=== PATIENT | male | born 1935 | race Caucasian/White ===

== ENCOUNTER 2017-08-10 17:45 | Inpatient (IN) | payer OTHER ==
[~2017-08-10] VITALS: Ht 172.7 cm; Wt 75.2 kg
[2017-08-10 19:05] VITALS: BP 92/57; PULSE 75; TEMP 36.5; O2SAT 98; Ht 172.7 cm; Wt 75.2 kg
[2017-08-10] MEDS ORDERED: TAMS0.4C38 PO (19:54)
[2017-08-10] MEDS ORDERED: ASPI1TAB83 PO (19:54)
[2017-08-10] MEDS ORDERED: SIMV20TA2 PO (19:54)
[2017-08-10] MEDS ORDERED: OMEP20TA PO (19:54)
[2017-08-10] MEDS ORDERED: METO25TA3 PO (19:55)
[2017-08-10] MEDS ORDERED: PATIENT'S ALLERGY INFO NEEDS ENTERED SCH (20:00)
[2017-08-10] MEDS ORDERED: ONDANSETRON INJ 2 MG/ML 2 ML VIAL IV PRN (20:15)
[2017-08-10] MEDS ORDERED: ACETAMINOPHEN 325 MG TAB PO PRN (20:15)
[2017-08-10 20:37] LABS: HEMATOCRIT 28.9 % (42-52); HEMOGLOBIN 10.1 g/dL (14.0-18.0); MEAN CORPUSCULAR HEMOGLOBIN 29.4 pg (25-34); MEAN CORPUSCULAR HGB CONC 34.9 g/dl (32-36); PLATELET COUNT 235 K/uL (130-400); RED CELL DISTRIBUTION WIDTH CV 14.9 % (11.5-14.5); RED CELL DISTRIBUTION WIDTH SD 45.6 fL (36.4-46.3); WHITE BLOOD COUNT 1.91 K/uL (4.8-10.8)
[2017-08-10 20:56] LABS: ALBUMIN 2.2 gm/dl (3.4-5.0); CALCIUM 7.7 mg/dl (8.5-10.1); CREATININE 1.11 mg/dl (0.60-1.40); POTASSIUM 3.4 mmol/L (3.5-5.1)
[2017-08-10 21:04] LABS: PHOSPHORUS 2.7 mg/dl (2.5-4.9); TOTAL PROTEIN 5.8 gm/dl (6.4-8.2)
--- NOTE | 2017-08-10 21:10 | DIAGNOSTIC IMAGING REPORT ---
CHEST ONE VIEW PORTABLE CLINICAL HISTORY: Atypical chest pain COMPARISON STUDY: No previous studies for comparison. FINDINGS: The heart is at the upper limits of normal in size. There is no failure. Increased left basal markings while nonspecific are likely atelectatic. The upper lung zones are clear.[ No pleural effusions are visualized. There is a calcified granuloma at the left lung base. IMPRESSION: Nonspecific left basilar opacities, likely atelectatic, although an infectious/inflammatory process could appear similar. No evidence of failure. Electronically signed by: Gonzalez De Jesus M.D. 08/10/2017 9:08 PM Dictated Date/Time: 08/10/2017 9:07 PM
[2017-08-10] MEDS: NSS + 20MEQ KCL 1000ML 1,000 ML IV SCH (22:41)
[2017-08-10] MEDS: AMPICILLIN/SULBACTAM SOD INJ 3,000 MG in SODIUM CHLORIDE 0.9% 100ML 100 ML IV ONE ×2 (23:01→23:44)
[2017-08-10] MEDS ORDERED: COUGH DROP (SUGAR FREE) LOZ 24 LOZ/1 BOX LOZ PRN (23:30)
[2017-08-10 23:33] VITALS: BP 100/58; PULSE 68; TEMP 36.8; O2SAT 95
[2017-08-11] VITALS (8 sets, daily range): BP systolic 100–120; BP diastolic 51–71; PULSE 61–75; TEMP 36.7–36.9; O2SAT 94–97
[2017-08-11 00:58] LABS: BASO % 0.5 %; BASO ABS # 0.01 K/uL (0-0.2); EOS ABS # 0.02 K/uL (0-0.5); IG# 0.02 K/uL (0.00-0.02); LYMPH % 48.7 %; LYMPH ABS # 0.96 K/uL (1.2-3.4); MONO % 11.2 %; MONO ABS # 0.22 K/uL (0.11-0.59); NEUT % 37.6 %; NEUT ABS # 0.74 K/uL (1.4-6.5)
[2017-08-11] MEDS: AMPICILLIN/SULBACTAM SOD INJ 3,000 MG in SODIUM CHLORIDE 0.9% 100ML 100 ML IV SCH ×3 (05:50→19:18)
[2017-08-11 07:39] LABS: INR 1.2 (0.9-1.1)
[2017-08-11 07:45] LABS: HEMATOCRIT 28.5 % (42-52); HEMOGLOBIN 9.9 g/dL (14.0-18.0); MEAN CELL VOLUME 84.3 fL (80-100); MEAN CORPUSCULAR HEMOGLOBIN 29.3 pg (25-34); MEAN CORPUSCULAR HGB CONC 34.7 g/dl (32-36); MEAN PLATELET VOLUME 8.6 fL (7.4-10.4); PLATELET COUNT 234 K/uL (130-400); RED CELL DISTRIBUTION WIDTH CV 14.9 % (11.5-14.5); RED CELL DISTRIBUTION WIDTH SD 46.3 fL (36.4-46.3); WHITE BLOOD COUNT 2.17 K/uL (4.8-10.8)
[2017-08-11 07:51] LABS: CALCIUM 7.6 mg/dl (8.5-10.1); CREATININE 1.01 mg/dl (0.60-1.40); POTASSIUM 3.8 mmol/L (3.5-5.1)
[2017-08-11 07:54] LABS: BASO % 0.5 %; BASO ABS # 0.01 K/uL (0-0.2); EOS % 0.9 %; EOS ABS # 0.02 K/uL (0-0.5); IG# 0.02 K/uL (0.00-0.02); LYMPH % 42.4 %; LYMPH ABS # 0.92 K/uL (1.2-3.4); MONO % 13.4 %; MONO ABS # 0.29 K/uL (0.11-0.59); NEUT % 41.9 %; NEUT ABS # 0.91 K/uL (1.4-6.5)
[2017-08-11 07:56] LABS: TOTAL PROTEIN 5.3 gm/dl (6.4-8.2)
--- NOTE | 2017-08-11 08:01 | HISTORY & PHYSICAL EXAMINATION ---
DATE OF ADMISSION: 08/10/2017 PRIMARY CARE PHYSICIAN: Dr. Solitario. CHIEF COMPLAINT: The patient has symptoms of oropharyngeal disease with neutropenia and was transferred from [facility] for continued management. HISTORY OF PRESENT COMPLAINT: He is an 82-year-old male, significant past medical history of CAD, seems to be stable, benign prostatic hypertrophy with high PSA, hyperlipidemia, history of DVT and history of duodenal ulcer. Apparently, has been complaining of sore throat and feeling of fullness in the face and head area with ongoing constant runny nose and sneezing with occasional blood in the sneeze. He also complains to have sore throat but did not have any problem with swallowing. His appetite has been poor. He denies any fever, chills or rigors with it. He went to the [facility] and noted to have low white count of 1.2 or 3. From that point, he was advised to come to [facility] or to [place] for continuation of care and get a hematology evaluation for these. On asking question, he has above symptoms but denies any chest pain, palpitation, any shortness of breath. Does not have any abdominal pain, nausea or vomiting. Denies any problem with bowel but has been having urinary symptoms. No swelling of the legs. No problem in the joints. No rash anywhere in the body. No headache, blurred vision, numbness or tingling in the extremities or any photophobia. PAST MEDICAL HISTORY: Significant for CAD, seems to be stable, benign prostatic hypertrophy with high PSA, hyperlipidemia, history of deep venous thrombosis, gastroesophageal reflux disease and history of duodenal ulcer. PAST SURGICAL HISTORY: Cardiac cath in the past, cataract surgery and tonsillectomy as a child. FAMILY HISTORY: Sister has unknown arthritis. Brother has a growth in the brain and also heart disorder. Father did have heart disorder. Mother and father as well. SOCIAL HISTORY: He is . He has 1 child, lives with his . He quit smoking in 1959 and he has been chewing snuff. No alcohol. He is quite ambulant. ALLERGIES: NKDA. MEDICATIONS: As an outpatient, he has been on aspirin 81 mg daily, Flomax 0.4 mg daily, metoprolol succinate 25 mg 1 tablet daily, Prilosec 40 mg daily and naproxen as needed. REVIEW OF SYSTEMS: As in history of present complaint. PHYSICAL EXAMINATION: GENERAL: On examination in the medical floor, he was not in any acute distress but he was feeling anorexic and generally weak. VITAL SIGNS: Temperature 36.5, pulse of 75, blood pressure 192/57, saturation 98% on room air. HEENT: Unremarkable. There is some tenderness in maxillary sinus areas on both sides. Throat nontender. There is no enlargement of the tonsils. Some redness noted on inspection of the throat area. CHEST: Clear to auscultate bilaterally. HEART: S1, S2 regular, no murmur. ABDOMEN: Soft, benign, nontender, no organomegaly. Bowel sounds present. EXTREMITIES: Negative for any edema. MUSCULOSKELETAL: Did not show any acute arthritis involving any joint. CENTRAL NERVOUS SYSTEM: He was alert, awake, oriented x3. No focal sensory and/or motor deficit appreciated. No photophobia and no neck stiffness. LABORATORY DATA: Noted from [facility] that was done today, rapid strep negative, white count 1.8, hemoglobin 11.6, hematocrit 33.9, platelet was 306, absolute lymphocytes low, absolute neutrophils low at 0.90. INR was 1.44, PTT 25.5. BNP 73. Thyroxine was 9.6, TSH was 4.63. Sodium 141, potassium 3.6, chloride 107, anion gap was 14, urea nitrogen 40 and creatinine 1.4, glucose 115, calcium 8.7, total bilirubin 7.0, AST 20, ALT 20, albumin 2.6, magnesium 2.3. Troponin was 0.02. UA examination unremarkable except hyaline casts 1+ and granular casts 1+. EKG was in sinus rhythm, left axis deviation, rate of [address]-T wave changes. Do not see any results of the x-ray. IMPRESSION AND PLAN: 1. Runny nose, sneezing, throat pain and facial fullness, most likely secondary to maxillary sinusitis. The patient will be started on intravenous Augmentin. He has neutropenia. The condition could be viral as well with decreased appetite. We will put him on neutropenic precaution as well. 2. Neutropenia. White count of 1.8 with absolute neutrophil 0.9. He will be put on neutropenic precaution. Hematology consultation will be taken. We will repeat blood counts tomorrow morning and this evening as well. Again, Augmentin was started due to probable sinusitis but he may have viral pharyngitis as well. 3. Pharyngitis has been ongoing since Friday. Could be viral and that can cause neutropenia. Again, antibiotic was given for probable sinusitis on examination. 4. Coronary artery disease. No acute symptoms. Continue with metoprolol. 5. Benign prostatic hypertrophy with elevated PSA. Will check his PSA level while in the hospital. He has been under the care of urologist. He will have regular followup appointment as an outpatient. 6. History of duodenal ulcer and reflux disease. He has been on omeprazole, continue with that. No evidence of any acute GI bleeding at this time. 7. Code status: Discussed with the patient, he will be full code. 8. Deep venous thrombosis prophylaxis with subcutaneous heparin. In my clinical assessment, the beneficiary meets criteria as per CMS for 2-midnight stay in the hospital. YASIR
[2017-08-11] MEDS: PANTOprazole SOD 40 MG TAB PO SCH (08:43)
[2017-08-11] MEDS: ASPIRIN 81 MG ECTAB PO SCH (08:43)
[2017-08-11] MEDS: METOPROLOL SUCC 25MG EXT REL TAB PO SCH (08:44)
[2017-08-11] MEDS: TAMSULOSIN HCL 0.4 MG CAP PO SCH (08:44)
[2017-08-11] MEDS: SIMVASTATIN 20 MG TAB PO SCH (08:44)
[2017-08-11] MEDS: NSS + 20MEQ KCL 1000ML 1,000 ML IV SCH ×2 (08:45→19:18)
[2017-08-11] MEDS: HEPARIN SOD 5000 UNIT/0.5 ML CARP SQ SCH ×3 (08:51→19:19)
[2017-08-11 10:41] LABS: INFLUENZA A PCR Neg for Influ A (NEG); INFLUENZA B PCR Neg for Influ B (NEG)
--- NOTE | 2017-08-11 13:09 | Medical Consult ---
Consultation Date of Consultation: Aug 11, 2017. Attending Physician: Earl Alvarez M.D. Reason for Consultation: "Neutropenia" requested by Dr. Butler History of Present Illness Mr. Gray is an 82 yo CM new to the consulting Hematology service. He has a PMH positive for CAD, BPH, dyslipidemia, h/o DVT in [facility] in May 2015 after an injury to the leg. He became ill about 6 days ago with fatigue, malaise, anorexia, nasal congestion , sinus pressure, cough. When he did not improve by yesterday, his brought him to ER for evaluation at [facility]. He was noted to be neutropenic and so he was transferred to [facility] and admitted today. He has been started on empiric Augmentin IV for URI, sinusitis symptoms. Repeat blood cultures obtained and pending. Hematology has been consulted for neutropenia. Additional history obtained from the patient at bedside. He states he is feeling overall better. He thinks his cough is improving. He denies dyspnea, chest pain or peripheral edema. He has not been febrile. He thinks his energy is improving. He has not noted bowel or bladder bleeding. His appetite remains diminished. He states his bowels and bladder are regular. He denies adenopathy. Outside of illness, he has been overall well. Social History Smoking Status: Never Smoker Allergies Coded Allergies: No Known Allergies (Unverified , 08/10/17) Current Inpatient Medications Current Inpatient Medications Medications (Trade) Dose Ordered Sig/Freddie Route Start Time Stop Time Status Last Admin Dose Admin Aspirin (Ecotrin Tab) 81 mg DAILY PO 08/11/17 09:00 09/10/17 08:59 08/11/17 08:43 81 MG Metoprolol Succinate (Toprol Xl Tab) 25 mg DAILY PO 08/11/17 09:00 09/10/17 08:59 08/11/17 08:44 25 MG Simvastatin (Zocor Tab) 20 mg DAILY PO 08/11/17 09:00 09/10/17 08:59 08/11/17 08:44 20 MG Tamsulosin HCl (Flomax Cap) 0.4 mg DAILY PO 08/11/17 09:00 09/10/17 08:59 08/11/17 08:44 0.4 MG Pantoprazole Sodium (Protonix Tab) 40 mg QAM PO 08/11/17 09:00 09/10/17 08:59 08/11/17 08:43 40 MG Heparin Sodium (Porcine) (Heparin Sq 5000 Unit/0.5ml) 5,000 unit Q8 SQ 08/11/17 08:00 09/10/17 07:59 08/11/17 08:51 5,000 UNIT Potassium Chloride/Sodium Chloride 1,000 ml @ 100 mls/hr Q10H IV 08/10/17 21:30 09/09/17 21:29 08/11/17 08:45 100 MLS/HR Acetaminophen (Tylenol Tab) 650 mg Q4H PRN PO 08/10/17 20:15 09/09/17 20:14 Ondansetron HCl (Zofran Inj) 4 mg Q6H PRN IV 08/10/17 20:15 09/09/17 20:14 Ampicillin Sodium/ Sulbactam Sodium 3000 mg/Sodium Chloride 108 ml @ 200 mls/hr Q6H IV 08/11/17 06:00 08/21/17 05:59 08/11/17 12:05 200 MLS/HR Menthol (Nice Melanie) 1 melanie Q6H PRN MELANIE 08/10/17 23:30 09/09/17 23:29 Review of Systems Constitutional: + fatigue, No fever ENT: + nasal symptoms, + sore throat Respiratory: + cough, No shortness of breath Cardiovascular: No chest pain, No edema Abdomen: No vomiting, No diarrhea, No constipation, No GI bleeding Genitourinary - Male: No hematuria Physical Exam Date Time Temp Pulse Resp B/P (MAP) Pulse Ox O2 Delivery O2 Flow Rate FiO2 08/11/17 11:24 36.7 65 16 100/59 (73) 95 Room Air 08/11/17 10:41 36.8 75 16 94 08/11/17 08:00 94 Room Air 08/11/17 07:46 36.8 75 16 120/71 (87) 94 Room Air 08/11/17 04:02 Room Air 08/11/17 03:35 36.8 64 19 119/67 (84) 97 Room Air 08/11/17 00:01 Room Air 08/10/17 23:33 36.8 68 18 100/58 (72) 95 08/10/17 19:05 36.5 75 18 92/57 98 Room Air General Appearance: WD/WN, no apparent distress ENT: hearing grossly normal Neck: no adenopathy Respiratory/Chest: lungs clear, normal breath sounds Cardiovascular: regular rate, rhythm Abdomen/GI: non tender, soft Extremities/Musculoskelatal: no calf tenderness, no pedal edema Neurologic/Psych: alert, oriented x 3 Skin: warm/dry, no rash Laboratory Results Last 24 Hours Test 08/10/17 20:16 08/10/17 22:00 08/11/17 07:20 08/11/17 09:00 White Blood Count 1.91 K/uL 2.17 K/uL Red Blood Count 3.44 M/uL 3.38 M/uL Hemoglobin 10.1 g/dL 9.9 g/dL Hematocrit 28.9 % 28.5 % Mean Corpuscular Volume 84.0 fL 84.3 fL Mean Corpuscular Hemoglobin 29.4 pg 29.3 pg Mean Corpuscular Hemoglobin Concent 34.9 g/dl 34.7 g/dl Platelet Count 235 K/uL 234 K/uL Mean Platelet Volume 9.0 fL 8.6 fL Neutrophils (%) (Auto) 37.6 % 41.9 % Lymphocytes (%) (Auto) 48.7 % 42.4 % Monocytes (%) (Auto) 11.2 % 13.4 % Eosinophils (%) (Auto) 1.0 % 0.9 % Basophils (%) (Auto) 0.5 % 0.5 % Neutrophils # (Auto) 0.74 K/uL 0.91 K/uL Lymphocytes # (Auto) 0.96 K/uL 0.92 K/uL Monocytes # (Auto) 0.22 K/uL 0.29 K/uL Eosinophils # (Auto) 0.02 K/uL 0.02 K/uL Basophils # (Auto) 0.01 K/uL 0.01 K/uL RDW Standard Deviation 45.6 fL 46.3 fL RDW Coefficient of Variation 14.9 % 14.9 % Immature Granulocyte % (Auto) 1.0 % 0.9 % Immature Granulocyte # (Auto) 0.02 K/uL 0.02 K/uL Red Blood Cell Morphology Unremarkable Sodium Level 143 mmol/L 143 mmol/L Potassium Level 3.4 mmol/L 3.8 mmol/L Chloride Level 113 mmol/L 114 mmol/L Carbon Dioxide Level 19 mmol/L 21 mmol/L Anion Gap 11.0 mmol/L 8.0 mmol/L Blood Urea Nitrogen 36 mg/dl 32 mg/dl Creatinine 1.11 mg/dl 1.01 mg/dl Est Creatinine Clear Calc Drug Dose 51.3 ml/min 56.4 ml/min Estimated GFR () 72.3 81.0 Estimated GFR (Non- 62.4 69.9 BUN/Creatinine Ratio 32.0 31.3 Random Glucose 89 mg/dl 97 mg/dl Lactic Acid Level 0.7 mmol/L Calcium Level 7.7 mg/dl 7.6 mg/dl Phosphorus Level 2.7 mg/dl Magnesium Level 2.2 mg/dl Total Bilirubin 0.4 mg/dl 0.4 mg/dl Direct Bilirubin 0.2 mg/dl Aspartate Amino Transf (AST/SGOT) 15 U/L 13 U/L Alanine Aminotransferase (ALT/SGPT) 14 U/L 13 U/L Alkaline Phosphatase 60 U/L 55 U/L Troponin I 0.060 ng/ml 0.047 ng/ml Total Protein 5.8 gm/dl 5.3 gm/dl Albumin 2.2 gm/dl 2.0 gm/dl Procalcitonin 0.31 ng/ml Urine Color DK YELLOW Urine Appearance CLOUDY Urine pH 5.0 Urine Specific [place] 1.027 Urine Protein 1+ Urine Glucose (UA) NEG Urine Ketones NEG Urine Occult Blood NEG Urine Nitrite POS Urine Bilirubin NEG Urine Urobilinogen NEG Urine Leukocyte Esterase NEG Urine WBC (Auto) 1-5 /hpf Urine RBC (Auto) 0-4 /hpf Urine Hyaline Casts (Auto) 5-10 /lpf Urine Epithelial Cells (Auto) >30 /lpf Urine Bacteria (Auto) NEG Urine Renal Epithelial Cells 0-5 /lpf Urine Pathogenic Casts 0-3 GRANULAR CASTS /lpf Urine Mucus PRESENT Urine Yeast (Auto) Prothrombin Time 12.7 SECONDS Prothromb Time International Ratio 1.2 Globulin 3.3 gm/dl Albumin/Globulin Ratio 0.6 Influenza Type A (RT-PCR) Neg for Influ A Influenza Type B (RT-PCR) Neg for Influ B Assessment & Plan 1. Acute neutropenia in the setting of a viral illness 2. Normocytic anemia * Review of previous blood counts are limited, but counts Mar 2010, September 2011 and Jan 2016 did not reveal neutropenia or anemia * [facility] records reviewed * This appears to this point to be acute in nature * Neutropenia appears to be improving since admission * Patient has not been febrile * He is on empiric IV Augmentin * Continue to monitor CBCD during hospitalization daily * Anticipating marrow suppression from acute viral infection and for continued improvement in counts with time * If counts fail to improve/normalize, will need further work up, bone marrow biopsy * Patient should have follow up with Hematology on discharge Thanks for the consult. Dr. Sims is the attending [employer] Cutting [employer] Operator, aware and agreeable to plan as documented- please see his addendum. I performed history and physical examination of the patient. I have discussed the patient's case, impression and plan with Nani Fink PA-C. Her note reflects my findings and plan. In summary he is a 82-year-old male, who came with upper respiratory tract infection symptoms, mainly cough, not feeling quite well, blood workup on admission showed WBC 1.9, ANC 0.74, mild anemia with hemoglobin 10, normal platelet count, previous blood workup done few years back showed normal blood counts. He is gradually recovering from the symptoms, blood workup done within 24 hours showed improvement of the ANC 2 around 0.9. I am expecting improvement of his blood count in the next few days mainly white blood cell count and neutrophil count, hemoglobin level may take some time further improvement. If his blood workup improved, he will continue to have follow-up with his primary-care provider. Will follow-up. Dr. Remington Sims Hem/Onc
--- NOTE | 2017-08-11 20:47 | Progress Note ---
Internal Med Progress Note Date of Service: Aug 11, 2017. Provider Documentation: SUBJECTIVE: Patient reports cough and sore throat. OBJECTIVE: GENERAL: no distress, verbal HEENT: Throat nontender. There is no enlargement of the tonsils. CHEST: Clear to auscultate bilaterally. HEART: S1, S2 regular, no murmur. ABDOMEN: Soft, benign, nontender, no organomegaly. Bowel sounds present. EXTREMITIES: Negative for any edema. MUSCULOSKELETAL: Did not show any acute arthritis involving any joint. CENTRAL NERVOUS SYSTEM: alert, awake, oriented x3. No focal sensory and/or motor deficit appreciated ASSESSMENT & PLAN: This is a patient with symptoms of Runny nose, sneezing, sore throat, cough, and facial fullness, most likely secondary to maxillary sinusitis vs viral pharyngitis as well. Otherwise at this point, no other sources of infection -currently on Augmentin, continue Augmentin Neutropenia possibly from upper respiratory etiology -Continue to monitor CBC during hospitalization daily -Hematology consult: "Anticipating marrow suppression from acute viral infection and for continued improvement in counts with time If counts fail to improve/normalize, will need further work up, bone marrow biopsy. Patient should have follow up with Hematology on discharge" -on neutropenic precaution Coronary artery disease. No acute symptoms. Continue with metoprolol. Benign prostatic hypertrophy with elevated PSA. -Will check his PSA level while in the hospital. He has been under the care of urologist. He will have regular followup appointment as an outpatient. History of duodenal ulcer and reflux disease. -continue PPI Code status: full code. Deep venous thrombosis prophylaxis with subcutaneous heparin Disposition: transferred from telemetry to medical dunn Vital Signs: Date Time Temp Pulse Resp B/P (MAP) Pulse Ox O2 Delivery O2 Flow Rate FiO2 08/11/17 16:22 96 Room Air 08/11/17 14:47 36.9 61 20 116/66 (83) 96 Room Air 08/11/17 11:24 36.7 65 16 100/59 (73) 95 Room Air 08/11/17 10:41 36.8 75 16 94 08/11/17 08:00 94 Room Air 08/11/17 07:46 36.8 75 16 120/71 (87) 94 Room Air 08/11/17 04:02 Room Air 08/11/17 03:35 36.8 64 19 119/67 (84) 97 Room Air 08/11/17 00:01 Room Air 08/10/17 23:33 36.8 68 18 100/58 (72) 95 Lab Results: Results Past 24 Hours Test 08/10/17 22:00 08/11/17 07:20 08/11/17 09:00 Range/Units Urine Color DK YELLOW Urine Appearance CLOUDY CLEAR Urine pH 5.0 4.5-7.5 Urine Specific [place] 1.027 1.000-1.030 Urine Protein 1+ NEG Urine Glucose (UA) NEG NEG Urine Ketones NEG NEG Urine Occult Blood NEG NEG Urine Nitrite POS NEG Urine Bilirubin NEG NEG Urine Urobilinogen NEG NEG Urine Leukocyte Esterase NEG NEG Urine WBC (Auto) 1-5 0-5 /hpf Urine RBC (Auto) 0-4 0-4 /hpf Urine Hyaline Casts (Auto) 5-10 0-5 /lpf Urine Epithelial Cells (Auto) >30 0-5 /lpf Urine Bacteria (Auto) NEG NEG Urine Renal Epithelial Cells 0-5 0-5 /lpf Urine Pathogenic Casts 0-3 GRANULAR CASTS 0 /lpf Urine Mucus PRESENT NONE PRSENT Urine Yeast (Auto) NONE PRSENT White Blood Count 2.17 4.8-10.8 K/uL Red Blood Count 3.38 4.7-6.1 M/uL Hemoglobin 9.9 14.0-18.0 g/dL Hematocrit 28.5 42-52 % Mean Corpuscular Volume 84.3 80-100 fL Mean Corpuscular Hemoglobin 29.3 25-34 pg Mean Corpuscular Hemoglobin Concent 34.7 32-36 g/dl Platelet Count 234 130-400 K/uL Mean Platelet Volume 8.6 7.4-10.4 fL Neutrophils (%) (Auto) 41.9 % Lymphocytes (%) (Auto) 42.4 % Monocytes (%) (Auto) 13.4 % Eosinophils (%) (Auto) 0.9 % Basophils (%) (Auto) 0.5 % Neutrophils # (Auto) 0.91 1.4-6.5 K/uL Lymphocytes # (Auto) 0.92 1.2-3.4 K/uL Monocytes # (Auto) 0.29 0.11-0.59 K/uL Eosinophils # (Auto) 0.02 0-0.5 K/uL Basophils # (Auto) 0.01 0-0.2 K/uL RDW Standard Deviation 46.3 36.4-46.3 fL RDW Coefficient of Variation 14.9 11.5-14.5 % Immature Granulocyte % (Auto) 0.9 % Immature Granulocyte # (Auto) 0.02 0.00-0.02 K/uL Prothrombin Time 12.7 9.0-12.0 SECONDS Prothromb Time International Ratio 1.2 0.9-1.1 Sodium Level 143 136-145 mmol/L Potassium Level 3.8 3.5-5.1 mmol/L Chloride Level 114 98-107 mmol/L Carbon Dioxide Level 21 21-32 mmol/L Anion Gap 8.0 3-11 mmol/L Blood Urea Nitrogen 32 7-18 mg/dl Creatinine 1.01 0.60-1.40 mg/dl Est Creatinine Clear Calc Drug Dose 56.4 ml/min Estimated GFR () 81.0 Estimated GFR (Non- 69.9 BUN/Creatinine Ratio 31.3 10-20 Random Glucose 97 70-99 mg/dl Calcium Level 7.6 8.5-10.1 mg/dl Total Bilirubin 0.4 0.2-1 mg/dl Aspartate Amino Transf (AST/SGOT) 13 15-37 U/L Alanine Aminotransferase (ALT/SGPT) 13 12-78 U/L Alkaline Phosphatase 55 45-117 U/L Troponin I 0.047 0-0.045 ng/ml Total Protein 5.3 6.4-8.2 gm/dl Albumin 2.0 3.4-5.0 gm/dl Globulin 3.3 2.5-4.0 gm/dl Albumin/Globulin Ratio 0.6 0.9-2 Influenza Type A (RT-PCR) Neg for Influ A NEG Influenza Type B (RT-PCR) Neg for Influ B NEG Microbiology Results 08/11/17 MRSA DNA Surveillance Screen - Final, Complete Specimen Negative for MRSA by DNA Probe 08/10/17 Urine Culture, Received Pending
[2017-08-12] VITALS (7 sets, daily range): BP systolic 110–128; BP diastolic 60–68; PULSE 56–76; TEMP 36.5–36.7; O2SAT 96–97
[2017-08-12] MEDS: AMPICILLIN/SULBACTAM SOD INJ 3,000 MG in SODIUM CHLORIDE 0.9% 100ML 100 ML IV SCH ×3 (00:01→11:42)
[2017-08-12] MEDS: HEPARIN SOD 5000 UNIT/0.5 ML CARP SQ SCH ×3 (06:38→20:25)
[2017-08-12 07:06] LABS: BASO ABS # 0.03 K/uL (0-0.2); EOS ABS # 0.06 K/uL (0-0.5); HEMATOCRIT 28.6 % (42-52); HEMOGLOBIN 9.9 g/dL (14.0-18.0); IG# 0.03 K/uL (0.00-0.02); LYMPH % 48.5 %; LYMPH ABS # 1.46 K/uL (1.2-3.4); MEAN CELL VOLUME 85.1 fL (80-100); MEAN CORPUSCULAR HEMOGLOBIN 29.5 pg (25-34); MEAN CORPUSCULAR HGB CONC 34.6 g/dl (32-36); MEAN PLATELET VOLUME 8.8 fL (7.4-10.4); MONO % 13.6 %; MONO ABS # 0.41 K/uL (0.11-0.59); NEUT % 33.9 %; NEUT ABS # 1.02 K/uL (1.4-6.5); PLATELET COUNT 276 K/uL (130-400); RED CELL DISTRIBUTION WIDTH CV 15.1 % (11.5-14.5); RED CELL DISTRIBUTION WIDTH SD 46.9 fL (36.4-46.3); WHITE BLOOD COUNT 3.01 K/uL (4.8-10.8)
[2017-08-12 07:38] LABS: CALCIUM 7.8 mg/dl (8.5-10.1); CREATININE 0.92 mg/dl (0.60-1.40); POTASSIUM 3.6 mmol/L (3.5-5.1)
[2017-08-12 07:43] LABS: TOTAL PROTEIN 5.4 gm/dl (6.4-8.2)
[2017-08-12] MEDS: ASPIRIN 81 MG ECTAB PO SCH (08:25)
[2017-08-12] MEDS: TAMSULOSIN HCL 0.4 MG CAP PO SCH (08:25)
[2017-08-12] MEDS: SIMVASTATIN 20 MG TAB PO SCH (08:26)
[2017-08-12] MEDS: PANTOprazole SOD 40 MG TAB PO SCH (08:26)
[2017-08-12] MEDS: METOPROLOL SUCC 25MG EXT REL TAB PO SCH (08:26)
[2017-08-12] MEDS ORDERED: SODIUM CHLORIDE 0.65% NA SOLN 45 ML (OCEAN) ONE (09:51)
[2017-08-12] MEDS ORDERED: SODIUM CHLORIDE 0.65% NA SOLN 45 ML (OCEAN) PRN (10:15)
[2017-08-12] MEDS ORDERED: NURSING VERBAL MED ORDER ONE (10:15)
--- NOTE | 2017-08-12 13:34 | Progress Note ---
Medicine Progress Note Date & Time of Visit: Aug 12, 2017 at 13:34 . Subjective Having loose stools. Otherwise, feels better. No fever. No sinus pain / drainage. No pharyngitis. No chest pain, cough, SOB. No nausea, vomiting. . Objective Last 8 Hrs Date Time Temp Pulse Resp B/P (MAP) Pulse Ox O2 Delivery O2 Flow Rate FiO2 08/12/17 08:26 76 08/12/17 08:00 97 Room Air 08/12/17 07:42 36.5 56 18 110/60 (77) 97 Room Air Physical Exam: General- lying in bed; no distress ENT- oropharynx clear Lungs- clear to auscultation; no respiratory distress Cardiovascular- RRR; no gallop; no JVD; no pretibial edema Abdomen- + bowel sounds, soft, nontender Extremities- no cyanosis; no calf tenderness Neuro- alert, oriented Skin- warm & dry . Laboratory Results: Last 24 Hours Test 08/12/17 06:24 White Blood Count 3.01 K/uL Red Blood Count 3.36 M/uL Hemoglobin 9.9 g/dL Hematocrit 28.6 % Mean Corpuscular Volume 85.1 fL Mean Corpuscular Hemoglobin 29.5 pg Mean Corpuscular Hemoglobin Concent 34.6 g/dl Platelet Count 276 K/uL Mean Platelet Volume 8.8 fL Neutrophils (%) (Auto) 33.9 % Lymphocytes (%) (Auto) 48.5 % Monocytes (%) (Auto) 13.6 % Eosinophils (%) (Auto) 2.0 % Basophils (%) (Auto) 1.0 % Neutrophils # (Auto) 1.02 K/uL Lymphocytes # (Auto) 1.46 K/uL Monocytes # (Auto) 0.41 K/uL Eosinophils # (Auto) 0.06 K/uL Basophils # (Auto) 0.03 K/uL RDW Standard Deviation 46.9 fL RDW Coefficient of Variation 15.1 % Immature Granulocyte % (Auto) 1.0 % Immature Granulocyte # (Auto) 0.03 K/uL Sodium Level 143 mmol/L Potassium Level 3.6 mmol/L Chloride Level 115 mmol/L Carbon Dioxide Level 22 mmol/L Anion Gap 6.0 mmol/L Blood Urea Nitrogen 22 mg/dl Creatinine 0.92 mg/dl Est Creatinine Clear Calc Drug Dose 61.9 ml/min Estimated GFR () 90.7 Estimated GFR (Non- 78.3 BUN/Creatinine Ratio 24.5 Random Glucose 90 mg/dl Calcium Level 7.8 mg/dl Total Bilirubin 0.3 mg/dl Aspartate Amino Transf (AST/SGOT) 14 U/L Alanine Aminotransferase (ALT/SGPT) 12 U/L Alkaline Phosphatase 52 U/L Total Protein 5.4 gm/dl Albumin 2.0 gm/dl Globulin 3.4 gm/dl Albumin/Globulin Ratio 0.6 Prostate Specific Antigen 48.900 ng/ml Assessment & Plan NEUTROPENIA Resolving. Viral syndrome suspected. Influenza A/B PCR negative. ? SINUSITIS Check x-rays. DIARRHEA Stop antibiotics if possible. Check stool for C diff. ELEVATED PSA Bone scan ordered. Has outpatient appt with Urology next week. CAD No anginal symptoms. VTE PROPHYLAXIS SQ heparin. Ambulate. DISPOSITION Expected discharge to home. Family Medicine follow-up with Dr. Solitario. . Current Inpatient Medications: Current Inpatient Medications Medications (Trade) Dose Ordered Sig/Freddie Route Start Time Stop Time Status Last Admin Dose Admin Aspirin (Ecotrin Tab) 81 mg DAILY PO 08/11/17 09:00 09/10/17 08:59 08/12/17 08:25 81 MG Metoprolol Succinate (Toprol Xl Tab) 25 mg DAILY PO 08/11/17 09:00 09/10/17 08:59 08/12/17 08:26 25 MG Simvastatin (Zocor Tab) 20 mg DAILY PO 08/11/17 09:00 09/10/17 08:59 08/12/17 08:26 20 MG Tamsulosin HCl (Flomax Cap) 0.4 mg DAILY PO 08/11/17 09:00 09/10/17 08:59 08/12/17 08:25 0.4 MG Pantoprazole Sodium (Protonix Tab) 40 mg QAM PO 08/11/17 09:00 09/10/17 08:59 08/12/17 08:26 40 MG Heparin Sodium (Porcine) (Heparin Sq 5000 Unit/0.5ml) 5,000 unit Q8 SQ 08/11/17 08:00 09/10/17 07:59 08/12/17 06:38 5,000 UNIT Acetaminophen (Tylenol Tab) 650 mg Q4H PRN PO 08/10/17 20:15 09/09/17 20:14 Ondansetron HCl (Zofran Inj) 4 mg Q6H PRN IV 08/10/17 20:15 09/09/17 20:14 Ampicillin Sodium/ Sulbactam Sodium 3000 mg/Sodium Chloride 108 ml @ 200 mls/hr Q6H IV 08/11/17 06:00 08/21/17 05:59 08/12/17 11:42 200 MLS/HR Menthol (Nice Destiny) 1 destiny Q6H PRN DESTINY 08/10/17 23:30 09/09/17 23:29 Sodium Chloride ([place] Nasal [place]) 1 sprays PRN PRN NA 08/12/17 10:15 09/11/17 10:14
--- NOTE | 2017-08-12 15:49 | DIAGNOSTIC IMAGING REPORT ---
SINUSES MIN 3 VIEWS ROUTINE CLINICAL HISTORY: 82 years-old Male presenting with sinus congestion, r/o sinusitis. TECHNIQUE: 4 views of the sinuses were obtained. COMPARISON: None. FINDINGS: Paranasal sinuses and mastoid air cells grossly clear. Bony nasal septum minimally deviated to the right inferiorly. Bony orbits intact. Visualized portion of the calvarium intact. The patient is edentulous. IMPRESSION: No radiographic evidence of paranasal sinus opacification. Electronically signed by: Branden Bangura M.D. 08/12/2017 3:48 PM Dictated Date/Time: 08/12/2017 3:47 PM
--- NOTE | 2017-08-12 16:42 | Hematology/Oncology Prog Note ---
Hematology/Onc Progress Note Date of Service Aug 12, 2017. Subjective He reports his cough is improving. He is now eating meals. He has h/o enlarged prostate, but no prostate cancer. he denies any urinary issues currently. He denies focal bone pain. Review of Systems: Constitutional: No fever Respiratory: + cough, No shortness of breath Musculoskeletal: No joint pain, No muscle pain Vital Signs Vital Signs Past 12 Hours Date Time Temp Pulse Resp B/P (MAP) Pulse Ox O2 Delivery O2 Flow Rate FiO2 08/12/17 15:49 36.7 57 18 124/68 (86) 96 Room Air 08/12/17 08:26 76 08/12/17 08:00 97 Room Air 08/12/17 07:42 36.5 56 18 110/60 (77) 97 Room Air Physical Exam Head: normocephalic ENMT: hearing grossly normal Lungs: Respiratory Effort: no dyspnea Auscuitation: breath sounds normal Cardiovascular: Heart Auscultation: RRR Abdomen: Bowel Sounds: normal Musculoskeletal: pertinent finding (no spinous proceed tenderness) Laboratory 08/12/17 06:24 Red Blood Count 3.36, Mean Corpuscular Volume 85.1, Mean Corpuscular Hemoglobin 29.5, Mean Corpuscular Hemoglobin Concent 34.6, Mean Platelet Volume 8.8, Neutrophils (%) (Auto) 33.9, Lymphocytes (%) (Auto) 48.5, Monocytes (%) (Auto) 13.6, Eosinophils (%) (Auto) 2.0, Basophils (%) (Auto) 1.0, Neutrophils # (Auto ) 1.02, Lymphocytes # (Auto) 1.46, Monocytes # (Auto) 0.41, Eosinophils # (Auto ) 0.06, Basophils # (Auto) 0.03 08/12/17 06:24 Test 08/12/17 06:24 White Blood Count 3.01 K/uL (4.8-10.8) Red Blood Count 3.36 M/uL (4.7-6.1) Hemoglobin 9.9 g/dL (14.0-18.0) Hematocrit 28.6 % (42-52) Mean Corpuscular Volume 85.1 fL (80-100) Mean Corpuscular Hemoglobin 29.5 pg (25-34) Mean Corpuscular Hemoglobin Concent 34.6 g/dl (32-36) Platelet Count 276 K/uL (130-400) Mean Platelet Volume 8.8 fL (7.4-10.4) Neutrophils (%) (Auto) 33.9 % Lymphocytes (%) (Auto) 48.5 % Monocytes (%) (Auto) 13.6 % Eosinophils (%) (Auto) 2.0 % Basophils (%) (Auto) 1.0 % Neutrophils # (Auto) 1.02 K/uL (1.4-6.5) Lymphocytes # (Auto) 1.46 K/uL (1.2-3.4) Monocytes # (Auto) 0.41 K/uL (0.11-0.59) Eosinophils # (Auto) 0.06 K/uL (0-0.5) Basophils # (Auto) 0.03 K/uL (0-0.2) RDW Standard Deviation 46.9 fL (36.4-46.3) RDW Coefficient of Variation 15.1 % (11.5-14.5) Immature Granulocyte % (Auto) 1.0 % Immature Granulocyte # (Auto) 0.03 K/uL (0.00-0.02) Anion Gap 6.0 mmol/L (3-11) Est Creatinine Clear Calc Drug Dose 61.9 ml/min Estimated GFR () 90.7 Estimated GFR (Non- 78.3 BUN/Creatinine Ratio 24.5 (10-20) Calcium Level 7.8 mg/dl (8.5-10.1) Total Bilirubin 0.3 mg/dl (0.2-1) Aspartate Amino Transf (AST/SGOT) 14 U/L (15-37) Alanine Aminotransferase (ALT/SGPT) 12 U/L (12-78) Alkaline Phosphatase 52 U/L (45-117) Total Protein 5.4 gm/dl (6.4-8.2) Albumin 2.0 gm/dl (3.4-5.0) Globulin 3.4 gm/dl (2.5-4.0) Albumin/Globulin Ratio 0.6 (0.9-2) Prostate Specific Antigen 48.900 ng/ml (0.000-4.000) Assessment & Plan 1. Acute neutropenia in the setting of a viral illness 2. Normocytic anemia 3. Elevated PSA * ANC/WBC continue to improve as patient's viral illness is resolving * Anemia is stable, anticipate this will be longer for noticeable improvement * PSA came back significantly elevated- patient states his last PSA was 6 months ago and was around 4 ng/mL, has BPH and follows with Urology * Dr. Sims recommended bone scan for further evaluation prior to discharge * Patient should have follow up with Hematology on discharge, no contraindication for discharge from Hematology point of view at this time * * I have discussed the patient's case, impression and plan with Nani Fink PA-C. Her note reflects my findings and plan. I reviewed his blood workup done today, gradual improvement of white blood cell count and neutrophil count noted , clinically he is doing well, significantly elevated PSA level noted around 48. He should be evaluated by urologist, have biopsy of the prostate, will get bone scan for further evaluation. Will follow up as an outpatient. * * Dr. Remington Sims Hem/Onc
[2017-08-13] VITALS: O2SAT 97
[2017-08-13 06:04] LABS: BASO % 1.2 %; BASO ABS # 0.05 K/uL (0-0.2); EOS % 1.9 %; EOS ABS # 0.08 K/uL (0-0.5); HEMATOCRIT 31.2 % (42-52); HEMOGLOBIN 10.4 g/dL (14.0-18.0); IG# 0.19 K/uL (0.00-0.02); LYMPH % 41.2 %; LYMPH ABS # 1.72 K/uL (1.2-3.4); MEAN CELL VOLUME 85.7 fL (80-100); MEAN CORPUSCULAR HEMOGLOBIN 28.6 pg (25-34); MEAN CORPUSCULAR HGB CONC 33.3 g/dl (32-36); MEAN PLATELET VOLUME 8.7 fL (7.4-10.4); MONO % 14.9 %; MONO ABS # 0.62 K/uL (0.11-0.59); NEUT % 36.2 %; NEUT ABS # 1.51 K/uL (1.4-6.5); PLATELET COUNT 295 K/uL (130-400); RED CELL DISTRIBUTION WIDTH CV 14.7 % (11.5-14.5); RED CELL DISTRIBUTION WIDTH SD 46.5 fL (36.4-46.3); WHITE BLOOD COUNT 4.17 K/uL (4.8-10.8)
[2017-08-13] MEDS: HEPARIN SOD 5000 UNIT/0.5 ML CARP SQ SCH ×2 (06:35→13:55)
[2017-08-13 06:45] LABS: CALCIUM 7.9 mg/dl (8.5-10.1); CREATININE 0.83 mg/dl (0.60-1.40); POTASSIUM 3.6 mmol/L (3.5-5.1)
[2017-08-13 07:29] VITALS: BP 161/76; PULSE 59; TEMP 36.8; O2SAT 98
[2017-08-13 08:00] VITALS: O2SAT 98
[2017-08-13] MEDS: METOPROLOL SUCC 25MG EXT REL TAB PO SCH (08:00)
[2017-08-13 08:55] VITALS: PULSE 55
[2017-08-13] MEDS: SIMVASTATIN 20 MG TAB PO SCH (08:56)
[2017-08-13] MEDS: ASPIRIN 81 MG ECTAB PO SCH (08:56)
[2017-08-13] MEDS: TAMSULOSIN HCL 0.4 MG CAP PO SCH (08:56)
[2017-08-13] MEDS: PANTOprazole SOD 40 MG TAB PO SCH (08:57)
--- NOTE | 2017-08-13 13:51 | DIAGNOSTIC IMAGING REPORT ---
WHOLE-BODY NUCLEAR BONE SCAN CLINICAL HISTORY: Elevated PSA. COMPARISON STUDY: No priors.. TECHNIQUE: Three hours following the IV administration of 25.9 mCi of technetium 99m MDP, whole body nuclear bone scan was performed in the anterior and posterior projections. FINDINGS: There is no abnormal osseous tracer deposition identified typical in appearance for bony metastatic disease. Low level and typically degenerative uptake is identified in the shoulders, hips, knees, and feet. There is expected excreted activity within the renal collecting system and bladder. IMPRESSION: There is no scintigraphic evidence of osseous metastatic disease. Electronically signed by: Les Vasquez M.D. 08/13/2017 1:50 PM Dictated Date/Time: 08/13/2017 1:49 PM
[2017-08-13 16:04] VITALS: BP 161/74; PULSE 61; TEMP 36.8; O2SAT 95
[2017-08-13 17:25] VITALS: BP 161/74; PULSE 61; TEMP 36.8; O2SAT 95
--- NOTE | 2017-08-13 17:45 | Progress Note ---
Medicine Progress Note Date & Time of Visit: Aug 13, 2017 at 17:45 . Subjective Feels well. No fever or chills. Mild sinus drainage without sinus headache. No cough or shortness of breath. No chest pain. No nausea or vomiting. Diarrhea improved. . Objective Last 8 Hrs Date Time Temp Pulse Resp B/P (MAP) Pulse Ox O2 Delivery O2 Flow Rate FiO2 08/13/17 17:25 36.8 61 18 95 Room Air 08/13/17 16:04 36.8 61 18 161/74 (103) 95 Room Air Physical Exam: General- no distress Lungs- clear to auscultation; no respiratory distress Cardiovascular- RRR; no gallop; no JVD; no pretibial edema Abdomen- + bowel sounds, soft, nontender Extremities- no cyanosis; no calf tenderness Neuro- alert, oriented Skin- warm & dry . Laboratory Results: Last 24 Hours Test 08/13/17 05:56 White Blood Count 4.17 K/uL Red Blood Count 3.64 M/uL Hemoglobin 10.4 g/dL Hematocrit 31.2 % Mean Corpuscular Volume 85.7 fL Mean Corpuscular Hemoglobin 28.6 pg Mean Corpuscular Hemoglobin Concent 33.3 g/dl Platelet Count 295 K/uL Mean Platelet Volume 8.7 fL Neutrophils (%) (Auto) 36.2 % Lymphocytes (%) (Auto) 41.2 % Monocytes (%) (Auto) 14.9 % Eosinophils (%) (Auto) 1.9 % Basophils (%) (Auto) 1.2 % Neutrophils # (Auto) 1.51 K/uL Lymphocytes # (Auto) 1.72 K/uL Monocytes # (Auto) 0.62 K/uL Eosinophils # (Auto) 0.08 K/uL Basophils # (Auto) 0.05 K/uL RDW Standard Deviation 46.5 fL RDW Coefficient of Variation 14.7 % Immature Granulocyte % (Auto) 4.6 % Immature Granulocyte # (Auto) 0.19 K/uL Sodium Level 144 mmol/L Potassium Level 3.6 mmol/L Chloride Level 113 mmol/L Carbon Dioxide Level 23 mmol/L Anion Gap 8.0 mmol/L Blood Urea Nitrogen 17 mg/dl Creatinine 0.83 mg/dl Est Creatinine Clear Calc Drug Dose 68.7 ml/min Estimated GFR () 96.3 Estimated GFR (Non- 83.1 BUN/Creatinine Ratio 20.5 Random Glucose 93 mg/dl Calcium Level 7.9 mg/dl Assessment & Plan NEUTROPENIA Resolving. Item Value Date Time White Blood Count 1.91 K/uL L 08/10/172015 White Blood Count 2.17 K/uL L 08/11/17 0720 White Blood Count 3.01 K/uL L 08/12/17 0624 White Blood Count 4.17 K/uL L 08/13/17 0556 Viral syndrome suspected. Influenza A/B PCR negative. ? SINUSITIS X-rays did not show any fluid levels. Antibiotics discontinued. DIARRHEA Antibiotics discontinued. Improved. ELEVATED PSA History of BPH with PSA of approximately 5. PSA 48.9 on 08/12/17. Bone scan on 08/13/17 did not show any apparent skeletal metastases. Has outpatient appt with Urology next week; records will be forwarded. CAD No anginal symptoms. VTE PROPHYLAXIS SQ heparin. Ambulate. DISPOSITION Discharge to home. Family Medicine follow-up with Dr. Solitario. Urology follow-up with [facility] in [place]. . Procedures: IV medications nuclear medicine bone scan . Current Inpatient Medications: Current Inpatient Medications Medications (Trade) Dose Ordered Sig/Freddie Route Start Time Stop Time Status Last Admin Dose Admin Aspirin (Ecotrin Tab) 81 mg DAILY PO 08/11/17 09:00 09/10/17 08:59 08/13/17 08:56 81 MG Metoprolol Succinate (Toprol Xl Tab) 25 mg DAILY PO 08/11/17 09:00 09/10/17 08:59 08/12/17 08:26 25 MG Simvastatin (Zocor Tab) 20 mg DAILY PO 08/11/17 09:00 09/10/17 08:59 08/13/17 08:56 20 MG Tamsulosin HCl (Flomax Cap) 0.4 mg DAILY PO 08/11/17 09:00 09/10/17 08:59 08/13/17 08:56 0.4 MG Pantoprazole Sodium (Protonix Tab) 40 mg QAM PO 08/11/17 09:00 09/10/17 08:59 08/13/17 08:57 40 MG Heparin Sodium (Porcine) (Heparin Sq 5000 Unit/0.5ml) 5,000 unit Q8 SQ 08/11/17 08:00 09/10/17 07:59 08/13/17 13:55 5,000 UNIT Acetaminophen (Tylenol Tab) 650 mg Q4H PRN PO 08/10/17 20:15 09/09/17 20:14 Ondansetron HCl (Zofran Inj) 4 mg Q6H PRN IV 08/10/17 20:15 09/09/17 20:14 Menthol (Nice Destiny) 1 destiny Q6H PRN DESTINY 08/10/17 23:30 09/09/17 23:29 Sodium Chloride ([place] Nasal [place]) 1 sprays PRN PRN NA 08/12/17 10:15 09/11/17 10:14
--- NOTE | 2017-08-13 17:53 | Discharge Instructions ---
Discharge Instructions Date of Service Aug 13, 2017. Admission Reason for Admission: low white blood cell count . Discharge Discharge Diagnosis / Problem: low white blood cell count- getting better Discharge Goals Goal(s): Improve disease control Activity Recommendations Activity Limitations: resume your previous activity . Instructions / Follow-Up Instructions / Follow-Up APPOINTMENTS: UROLOGY Martha Martínez PA-C [facility] Next week as scheduled FAMILY MEDICINE 08/20/2017 11:40 AM Dennis Mulligan MD (covering for Dr. Solitario) [facility] OTHER INSTRUCTIONS: Your white blood count was low, but is getting better every day. You probably had a viral infection that lowered your white blood count. X-ray of sinuses did not show any significant fluid in sinuses. Your PSA was 48.9. Bone scan did not show any sign of cancer in the bone. Please discuss high PSA further with your Urologist next week. You may need further testing like a repeat biopsy. Seek medical attention if you have: * temperature above 101 * chest pain or trouble breathing * abdominal pain, nausea, vomiting * diarrhea, dark stools or bloody stools * any unanswered questions or concerns Call 911 if symptoms are severe. Call if you have any questions or problems. My cell # is [phone]. You can also reach a [facility] hospitalist on duty at [facility] 24 hours a day by calling [phone]. Please take good care of yourself. Ajay Franz . Current Hospital Diet Patient's current hospital diet: AHA Diet (Heart Healthy) Discharge Diet Recommended Diet: AHA Diet (Heart Healthy) Pending Studies Studies pending at discharge: no Medical Emergencies . Who to Call and When: Medical Emergencies: If at any time you feel your situation is an emergency, please call 911 immediately. . Non-Emergent Contact Non-Emergency issues call your: Primary Care Provider, Hospital Doctor, Urologist . . "Provider Documentation" section prepared by Ajay Franz. .
--- NOTE | 2017-08-14 08:57 | Discharge Summary ---
Discharge Summary Date of Service Aug 14, 2017. Discharge Summary Admission Date: Aug 10, 2017 at 19:07 Discharge Date: Aug 13, 2017 Discharge Disposition: Home Principal Diagnosis: neutropenia suspected viral syndrome OTHER ACUTE SECONDARY DIAGNOSES: elevated PSA positive blood culture (gram positive bacilli), suspected contaminant, final ID pending . Secondary Diagnoses/Problems: Chronic and Resolved Medical Problems: (1) BPH (benign prostatic hypertrophy) Status: Chronic (2) Coronary artery disease Status: Chronic (3) Elevated PSA Status: Chronic (4) History of duodenal ulcer Status: Chronic (5) History of DVT (deep vein thrombosis) Status: Chronic Surgical Problems: (1) Status post cardiac catheterization Status: Chronic (2) Status post cataract extraction Status: Chronic . Procedures: WHOLE-BODY NUCLEAR BONE SCAN FINDINGS: There is no abnormal osseous tracer deposition identified typical in appearance for bony metastatic disease. Low level and typically degenerative uptake is identified in the shoulders, hips, knees, and feet. There is expected excreted activity within the renal collecting system and bladder. IMPRESSION: There is no scintigraphic evidence of osseous metastatic disease. Electronically signed by: Les Vasquez M.D. 08/13/2017 1:50 PM Dictated Date/Time: 08/13/2017 1:49 PM . Consultations: Hematology / Oncology with Dr. Sims . Pending Studies/Follow-Up: final blood culture results . Medication Reconciliation Continued Medications: Aspirin (Aspirin) 81 Mg Tab 1 TAB PO DAILY for 30 Days, #30 TAB 3 Refills Metoprolol Succ (Toprol Xl) (Toprol-Xl) 25 Mg Tabcr 25 MG PO DAILY, #30 TAB Omeprazole (Omeprazole) 20 Mg Tab 2 TAB PO DAILY for 90 Days, #180 TAB 1 Refill Simvastatin (Zocor) 20 Mg Tab 1 TAB PO DAILY for 90 Days, #90 TAB 1 Refill Tamsulosin Hcl (Flomax) 0.4 Mg Cap 1 CAP PO DAILY for 30 Days, #30 CAP 5 Refills Admission Information HPI (per Admitting provider): He is an 82-year-old male, significant past medical history of CAD, seems to be stable, benign prostatic hypertrophy with high PSA, hyperlipidemia, history of DVT and history of duodenal ulcer. Apparently, has been complaining of sore throat and feeling of fullness in the face and head area with ongoing constant runny nose and sneezing with occasional blood in the sneeze. He also complains to have sore throat but did not have any problem with swallowing. His appetite has been poor. He denies any fever, chills or rigors with it. He went to the [facility] and noted to have low white count of 1.2 or 3. From that point, he was advised to come to [facility] or to [facility] for continuation of care and get a hematology evaluation for these. On asking question, he has above symptoms but denies any chest pain, palpitation, any shortness of breath. Does not have any abdominal pain, nausea or vomiting. Denies any problem with bowel but has been having urinary symptoms. No swelling of the legs. No problem in the joints. No rash anywhere in the body. No headache, blurred vision, numbness or tingling in the extremities or any photophobia. . Physical Exam (per Admitting): GENERAL: On examination in the medical floor, he was not in any acute distress but he was feeling anorexic and generally weak. VITAL SIGNS: Temperature 36.5, pulse of 75, blood pressure 192/57, saturation 98% on room air. HEENT: Unremarkable. There is some tenderness in maxillary sinus areas on both sides. Throat nontender. There is no enlargement of the tonsils. Some redness noted on inspection of the throat area. CHEST: Clear to auscultate bilaterally. HEART: S1, S2 regular, no murmur. ABDOMEN: Soft, benign, nontender, no organomegaly. Bowel sounds present. EXTREMITIES: Negative for any edema. MUSCULOSKELETAL: Did not show any acute arthritis involving any joint. CENTRAL NERVOUS SYSTEM: He was alert, awake, oriented x3. No focal sensory and/or motor deficit appreciated. No photophobia and no neck stiffness. . Hospital Course NEUTROPENIA Initially seen in ED at [facility] with pharyngitis, rhinitis, malaise. WBC there 1800. Transferred to [facility] for further evaluation and management. Neutropenia resolving: Item Value Date Time White Blood Count 1.91 K/uL L 08/10/172015 White Blood Count 2.17 K/uL L 08/11/17 0720 White Blood Count 3.01 K/uL L 08/12/17 0624 White Blood Count 4.17 K/uL L 08/13/17 0556 Viral syndrome suspected as etiology of neutropenia. PHARYNGITIS / ? SINUSITIS X-rays did not show any fluid levels. Antibiotics discontinued. Rapid strep screen done in ED at [facility] negative. Influenza A/B PCR negative. Viral syndrome suspected. POSSIBLE SEPSIS / POSITIVE BLOOD CULTURE BP in ED at [facility] was 92/48. Received fluid resuscitation and IV antibiotics. 2 blood cultures obtained 08/10 at [facility]- no growth as of 08/14/17. Rapid strep + pharyngeal culture negative. Repeat blood cultures drawn at [facility] 08/10/17. One of two blood cultures reported morning of 08/14/17 growing gram positive bacilli. Positive blood culture most likely contaminant. Patient was afebrile at time of discharge and doing well clinically; he was instructed to seek medical attention if he develops a fever. DIARRHEA Antibiotics discontinued. Improved. ELEVATED PSA History of BPH with PSA of approximately 5. PSA 48.9 on 08/12/17. Bone scan on 08/13/17 did not show any apparent skeletal metastases. Elevated PSA could be related to suspected viral illness or may be secondary to malignancy. Has outpatient appt with Urology next week; records will be forwarded. CAD No anginal symptoms. VTE PROPHYLAXIS SQ heparin. Ambulate. DISPOSITION Discharge to home. Family Medicine follow-up with Dr. Solitario. Urology follow-up with [facility] in [place]. Hematology / Oncology follow-up with Dr. Remington Sims as needed. . Total time spent on discharge = 40 min. This includes examination of the patient, discharge planning, medication reconciliation, and communication with other providers. . Discharge Instructions Date of Service Aug 13, 2017. Admission Reason for Admission: low white blood cell count . Discharge Discharge Diagnosis / Problem: low white blood cell count- getting better Discharge Goals Goal(s): Improve disease control Activity Recommendations Activity Limitations: resume your previous activity . Instructions / Follow-Up Instructions / Follow-Up APPOINTMENTS: UROLOGY Martha Martínez PA-C [facility] Next week as scheduled FAMILY MEDICINE 08/20/2017 11:40 AM Dennis Mulligan MD (covering for Dr. Solitario) [facility] OTHER INSTRUCTIONS: Your white blood count was low, but is getting better every day. You probably had a viral infection that lowered your white blood count. X-ray of sinuses did not show any significant fluid in sinuses. Your PSA was 48.9. Bone scan did not show any sign of cancer in the bone. Please discuss high PSA further with your Urologist next week. You may need further testing like a repeat biopsy. Seek medical attention if you have: * temperature above 101 * chest pain or trouble breathing * abdominal pain, nausea, vomiting * diarrhea, dark stools or bloody stools * any unanswered questions or concerns Call 911 if symptoms are severe. Call if you have any questions or problems. My cell # is [phone]. You can also reach a [facility] hospitalist on duty at [facility] 24 hours a day by calling [phone]. Please take good care of yourself. Ajay Franz . Current Hospital Diet Patient's current hospital diet: AHA Diet (Heart Healthy) Discharge Diet Recommended Diet: AHA Diet (Heart Healthy) Pending Studies Studies pending at discharge: no Medical Emergencies . Who to Call and When: Medical Emergencies: If at any time you feel your situation is an emergency, please call 911 immediately. . Non-Emergent Contact Non-Emergency issues call your: Primary Care Provider, Hospital Doctor, Urologist . . "Provider Documentation" section prepared by Ajay Franz. . . Additional Copies To Danny Solitario M.D.; Martha Martínez ., DEVANTEC; Remington Sims M.D.
== END 2017-08-13 18:55 | disposition home or self-care (01) | DRG 153 ==
LOC: C.2T 19:07 → UNDOADMIN 19:07 → ENRESERV 08-11 08:38 → C.4E 08-11 11:04
PROVIDERS: ADMIT Internal Medicine; ATTEND Hospitalist
DX: J32.0 Chronic maxillary sinusitis (principal); D70.9 Neutropenia, unspecified; I25.10 Atherosclerotic heart disease of native coronary artery without angina pectoris; E78.5 Hyperlipidemia, unspecified; N40.0 Benign prostatic hyperplasia without lower urinary tract symptoms; Z86.718 Personal history of other venous thrombosis and embolism; K21.9 Gastro-esophageal reflux disease without esophagitis; Z82.49 Family history of ischemic heart disease and other diseases of the circulatory system; Z87.891 Personal history of nicotine dependence; Z79.82 Long term (current) use of aspirin; J02.9 Acute pharyngitis, unspecified

== ENCOUNTER 2020-02-12 18:28 | Inpatient (IN) ==
[2020-02-12] MEDS ORDERED: SODIUM CHLORIDE 0.9% 1000ML 1,000 ML IV ONE ×2 (19:08→20:05)
[2020-02-12 19:44] LABS: Basophils # (auto) 0.04 K/uL (0-0.2); Basophils % (auto) 0.5 %; Eosinophils # (auto) 0.07 K/uL (0-0.5); Eosinophils % (auto) 0.8 %; Hematocrit (blood only) 41.2 % (42-52); Hemoglobin 13.9 g/dL (14.0-18.0); Immature Granulocytes # (auto) 0.04 K/uL (0.00-0.02); Immature Granulocytes % (auto) 0.5 %; Lymphocytes # (auto) 1.34 K/uL (1.2-3.4); Lymphocytes % (auto) 15.9 %; Mean Corpuscular Hemoglobin 30.1 pg (25-34); Mean Corpuscular Hgb Conc 33.7 g/dL (32-36); Mean Corpuscular Volume 89.2 fL (80-100); Mean Platelet Volume 9.2 fL (7.4-10.4); Monocytes # (auto) 0.44 K/uL (0.11-0.59); Monocytes % (auto) 5.2 %; Neutrophils # (auto) 6.52 K/uL (1.4-6.5); Neutrophils % (auto) 77.1 %; Platelet Count 357 K/uL (130-400); RDW Coefficient of Variation 14.5 % (11.5-14.5); RDW Standard Deviation 47.3 fL (36.4-46.3); Red Blood Count 4.62 M/uL (4.7-6.1); White Blood Count 8.45 K/uL (4.8-10.8)
[2020-02-12 19:53] LABS: iSTAT Creatinine 1.1 mg/dl (0.6-1.3); iSTAT Hemoglobin 14.6 g/dl (14.0-18.0); iSTAT Ionized Calcium 1.13 mmol/l (1.12-1.32); iSTAT Potassium 3.6 mmol/L (3.3-5.0)
[2020-02-12] MEDS ORDERED: IOVERSOL 100ml IV ONE ×2 (19:54→19:56)
[2020-02-12 20:10] LABS: Alanine Aminotransferase 362 U/L (12-78); Albumin Level 2.6 gm/dl (3.4-5.0); Aspartate Aminotransferase 184 U/L (15-37); BUN Creatinine Ratio 23.5 (10-20); Blood Urea Nitrogen 28 mg/dl (7-18); Calcium 8.4 mg/dl (8.5-10.1); Carbon Dioxide 23 mmol/L (21-32); Chloride 114 mmol/L (98-107); Creatinine Clr Calc Pharmacy 46.3 ml/min; Est GFR (African American) 65.5; Est GFR (Non-African American) 56.5; Glucose 116 mg/dl (70-99); Potassium 3.6 mmol/L (3.5-5.1); Sodium 143 mmol/L (136-145)
[2020-02-12 20:21] LABS: Albumin Globulin Ratio 0.6 (0.9-2); Alkaline Phosphatase 423 U/L (45-117); Creatine Kinase 46 U/L (39-308); Creatine Kinase MB 1.4 ng/ml (0.5-3.6); Globulin 4.1 gm/dl (2.5-4.0); Total Protein 6.7 gm/dl (6.4-8.2); Troponin I < 0.015 ng/ml (0-0.045)
[2020-02-12 20:33] LABS: T4 Free Thyroxine 1.48 ng/dl (0.8-1.6)
--- NOTE | 2020-02-12 20:33 | CT Scan Report ---
CT OF THE ABDOMEN AND PELVIS WITH CONTRAST CLINICAL HISTORY: Lower abdominal pain. COMPARISON STUDY: None. TECHNIQUE: Following IV administration of 93 mL of Optiray-320, axial images of the abdomen and pelvi s were obtained from the lung bases to the proximal femurs. Images were reviewed in the axial, sagitt al, and coronal planes. IV contrast was administered without complication. Automated exposure contro l was utilized for the study. A dose lowering technique was utilized adhering to the principles of A BHAVESH. CT DOSE: 295.50 mGy.cm FINDINGS: The heart is mildly enlarged. Calcified granulomas within the lower lungs are noted. No pneumatosis, free air or portal venous gas is present. Numerous hypodense hepatic lesions measure up to 2.5 cm. These favor cysts. There is mild intrahepatic biliary ductal dilatation. Of note, ther e is suspected wall thickening of the common bile duct as well as the right and left hepatic ducts. T here is also gallbladder wall thickening. The spleen is moderately enlarged. No pancreatic ductal dil atation is present. There is no peripancreatic infiltration. The adrenal glands are normal. A 3.1 cm left renal cyst is noted. Several subcentimeter left renal lesions are too small to characterize but favor cysts. There is slight indistinctness of each renal sinus with possible urothelial thickening. There is no hydronephrosis or hydroureter. There are no urinary calculi. The prostate is markedly enl arged. Bladder wall is irregular and trabeculated. This is chronic. There is mild dilatation of the l eft common iliac artery, measuring 1.6 cm. There is moderate aortoiliac atherosclerotic plaque. There is no evidence for a bowel obstruction. The appendix is normal. Numerous enlarged abdominal and pelv ic lymph nodes are noted, the largest of which is a 4.1 x 2.4 cm right external iliac node on image 3 06 of 481. An enlarged ileocolic lymph node measures 3.7 x 1.9 cm. An enlarged portacaval lymph node measures 2.8 x 1.3 cm. Major vasculature is patent. There are no suspicious osseous lesions. IMPRESSION: 1. Mild intrahepatic biliary ductal dilatation with wall thickening and enhancement most pronounced w ithin the common bile duct. This is nonspecific and differential considerations include cholangitis a nd IgG4 related disease as well as cholangiocarcinoma. Lymphoma could also explain these findings giv en splenomegaly and lymphadenopathy. Correlation with liver function tests is recommended. 2. Moderate abdominal and pelvic lymphadenopathy, including a 4.1 x 2.4 cm right external iliac lymph node. Moderate splenomegaly. These findings favor a lymphoproliferative disorder such as lymphoma. M etastatic disease could have this appearance but is considered less likely. 3. Marked enlargement of the prostate. Bladder wall thickening and trabeculation which is chronic. Po ssible urothelial thickening and indistinctness of each renal sinus which could be correlated with ur inalysis. Lymphomatous involvement cannot be excluded. 4. Colonic diverticulosis without evidence for acute diverticulitis. No bowel obstruction. Normal eryn endix. ACT 112: Negative or not required by law. Electronically signed by: Torrey Hood M.D. 02/12/2020 8:32 PM
[2020-02-12 21:04] LABS: Appearance Urine Clear (Clear); Bacteria Urine Automated Negative (Negative); Blood Urine 3+ (Negative); Color Urine Dark Yellow; Glucose Urine UA Negative (Negative); Ketones Urine Negative (Negative); Leukocyte Esterase Urine 1+ (Negative); Nitrite Urine Positive (Negative); Protein Urine Trace (Negative); RBC Urine Automated >30 /hpf (0-4); Specific Gravity Urine > 1.045 (1.000-1.030); Urobilinogen Urine Negative (Negative)
[2020-02-12] MEDS ORDERED: PIPERACILLIN/TAZOBACTAM 4.5 GM/120 ML BAG IV ONE (21:09)
[2020-02-12] MEDS ORDERED: DAPTOmycin 425 MG in SYRINGE 0 ML IV ONE (21:09)
[2020-02-12] MEDS ORDERED: PIPERACILL/TAZOBAC CONSULT ACTIVE PRN (21:09)
[2020-02-12 21:32] LABS: Bilirubin Urine 2+ (Negative); Ictotest Urine Positive (Negative)
[2020-02-12 21:41] LABS: Calcium Oxalate Crystals Urine Present (None Prsent); Mucus Urine Present (None Prsent)
[2020-02-12 21:42] LABS: Cast Urine Automated 0 /lpf (0-5)
[2020-02-12 21:50] LABS: Lipase 85 U/L (73-393); Magnesium 2.1 mg/dl (1.8-2.4)
--- NOTE | 2020-02-12 22:17 | History & Physical Report ---
Date of Service February 12, 2020 Assessment & Plan (1) Biliary obstruction: malignancy versus infection on imaging Patient not septic for now. chronic diastolic heart failure (EF 55 to 60%, TTE 2019 ), patient on the dry side hx CAD, valvular heart disease (Moderate MR, mild AR/TR TTE 2019) hypertension, patient hypotensive upon arrival at the ER history DVT as per records hx BPH Hyperglycemia rule out DM chronic anemia, hemoglobin at baseline past tobacco abuse Medical telemetry given transient hypotension MRCP GI consult RE abnormal LFTs with abnormal CT (ER provider already in touch with Dr. Carmichael who recommends obtaining blood cultures and antibiotic Rx for presumptive infection for now.) IVF N.p.o. until patient seen by GI in anticipation of procedure Check hemoglobin A1c DVT prophylaxis per Lovenox subcu Full code Patient's daughter requesting updates for providers. Dr. Rita Gray, contact #[phone] 09/09 [id number]. Text document was generated using [employer] voice recognition software. It may contain grammatical or spelling errors. Kindly contact undersigned for clarification of any documentation item in question. History of Present Illness Chief Complaint: Abdominal pain Primary Care Provider: Danny Solitario MD History obtained from patient and records. Medical history significant for chronic diastolic heart failure (EF 55 to 60%, TTE 2019 ), hx CAD, valvular heart disease (Moderate MR, mild AR/TR TTE 2019), hypertension, hyperlipidemia, history DVT as per records, BPH, PUD, chronic anemia (baseline hemoglobin 13), past tobacco abuse. Last confinement August 2017 for leukopenia, suspected viral syndrome. Patient had routine outpatient blood work at PCP's office 3 weeks ago. Abnormal LFTs noted. AST 118, ALT 209. Alk phos within normal limits. No abdominal pain complaints. No inordinate alcohol intake as per patient account. Voluntary weight loss of about 10 pounds in the last few months as per patient. Outpatient ultrasound of the abdomen done last week for transaminitis as per records. Gallbladder noted to be contracted with diffusely thickened gallbladder wall. 3 mm gallstone versus polyp and sludge. No Sanchez sign. Diffuse thickening of the gallbladder wall could be secondary to liver disease versus chronic cholecystitis. Dilated CBD filled with debris measuring up to 9 mm in diameter. Distal obstruction not excluded. Consider ERCP/MRCP. Diffuse increased echogenicity of liver nonspecific finding. Fatty infiltration is a consideration among other diffuse hepatocellular processes. Outpatient [facility] consultation scheduled for next month. 2 days ago, patient noted achy left-sided abdominal pain with transient hematuria. Stomach feeling funny somewhat worse on moving around. No fever, no chills. No chest pain, no S OB. Patient lightheaded from poor appetite. Patient brought by family to the emergency room. 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 Allergies Allergy/AdvReac Type Severity Reaction Status Date / Time No Known Allergies Allergy Unverified 02/12/20 20:22 Home Medications Home Medications Medication Instructions Recorded Confirmed Type aspirin [Aspir-81] 81 mg PO DAILY 02/12/20 02/12/20 History metoprolol tartrate 12.5 mg PO DAILY 02/12/20 02/12/20 History omeprazole 40 mg PO DAILY 02/12/20 02/12/20 History simvastatin 20 mg PO DAILY 02/12/20 02/12/20 History tamsulosin 0.4 mg PO DAILY 02/12/20 02/12/20 History Past Med/Surg History Social History Smoking Status: Former smoker Tobacco Type: Cigarettes Hx Alcohol Use: No Hx Substance Use: No Communication Ability: Effective Beliefs That Will Affect Care: None Current Living Situation: Spouse Other Information That Helps Us Care for You: No Feels Safe at Home: Yes Assistive Devices: None Review of Systems Review of Systems: As per HPI, all 10 systems reviewed, all other ROS negative Physical Exam Physical Exam: GENERAL: Comfortable, pleasant, looks younger stated age, no respiratory distress SKIN: Normal color, warm HEENT: [place] palpebral conjunctivae, no ptosis, dry buccal mucosa NECK : Supple, no tenderness CHEST : CTA, no tenderness HEART : RRR, systolic murmur ABDOMEN: Some distention, no overt tenderness EXTREMITIES : No LE swelling/tenderness, no other conspicuous deformities noted NEUROLOGIC : Coherent, no facial asymmetry, mild hearing impairment, no other gross focality Results & Data Results & Data ([facility]) Vital Signs (Past 12 Hours) Vital Signs Temp Pulse Resp BP Pulse Ox 02/12/20 18:42 36.7 C 86 20 83/46 L 97 Laboratory Results Laboratory Results WBC 8.45 K/uL (4.8-10.8) 02/12/20 19: RBC 4.62 M/uL (4.7-6.1) L 02/12/20 19:26 Hgb 13.9 g/dL (14.0-18.0) L 02/12/20 19: POC Hgb 14.6 g/dl (14.0-18.0) 02/12/20 19:39 Hct 41.2 % (42-52) L 02/12/20 19: POC Hct 43 % (42-52) 02/12/20 19: MCV 89.2 fL (80-100) 02/12/20 19: MCH 30.1 pg (25-34) 02/12/20: MCHC 33.7 g/dL (32-36) 02/12/20: RDW Std Deviation 47.3 fL (36.4-46.3) H 02/12/20: RDW Coeff of Alan 14.5 % (11.5-14.5) 02/12/20: Plt Count 357 K/uL (130-400) 02/12/20: MPV 9.2 fL (7.4-10.4) 02/12/20 19: Immature Gran % (Auto) 0.5 % 02/12/20 19: Neut % (Auto) 77.1 % 02/12/20: Lymph % (Auto) 15.9 % 02/12/20: [place] % (Auto) 5.2 % 02/12/20 19: Eos % (Auto) 0.8 % 02/12/20: Baso % (Auto) 0.5 % 02/12/20: Neut # (Auto) 6.52 K/uL (1.4-6.5) H 02/12/20 19: Lymph # (Auto) 1.34 K/uL (1.2-3.4) 02/12/20 19: [place] # (Auto) 0.44 K/uL (0.11-0.59) 02/12/20 19:26 Eos # (Auto) 0.07 K/uL (0-0.5) 02/12/20 19:26 Baso # (Auto) 0.04 K/uL (0-0.2) 02/12/20 19:26 Immature Gran # (Auto) 0.04 K/uL (0.00-0.02) H 02/12/20 19:26 POC Sodium 142 mmol/L (135-144) 02/12/20 19:39 Sodium 143 mmol/L (136-145) 02/12/20 19:26 POC Potassium 3.6 mmol/L (3.3-5.0) 02/12/20 19:39 Potassium 3.6 mmol/L (3.5-5.1) 02/12/20 19:26 POC Chloride 109 mmol/L (101-112) 02/12/20 19:39 Chloride 114 mmol/L (98-107) H 02/12/20 19:26 Carbon Dioxide 23 mmol/L (21-32) 02/12/20 19:26 POC Total CO2 20 mmol/L (24-31) L 02/12/20 19:39 Anion Gap 6.0 (3-11) 02/12/20 19:26 POC Anion Gap 19.0 mmol/L (16-25) 02/12/20 19:39 POC BUN 27 mg/dl (7-18) H 02/12/20 19:39 BUN 28 mg/dl (7-18) H 02/12/20 19:26 Creatinine 1.19 mg/dl (0.6-1.4) 02/12/20 19:26 POC Creatinine 1.1 mg/dl (0.6-1.3) 02/12/20 19:39 Est Cr Clr Drug Dosing 46.3 ml/min 02/12/20 19:26 Est GFR ( Amer) 65.5 02/12/20 19:26 Est GFR (Non-Af Amer) 56.5 02/12/20 19:26 BUN/Creatinine Ratio 23.5 (10-20) H 02/12/20 19:26 Glucose 116 mg/dl (70-99) H 02/12/20 19:26 POC Glucose (other) 119 mg/dl (70-99) H 02/12/20 19:39 Calcium 8.4 mg/dl (8.5-10.1) L 02/12/20 19: POC Ioniz Calcium Kathi 1.13 mmol/l (1.12-1.32) 02/12/20: Magnesium 2.1 mg/dl (1.8-2.4) 02/12/20 19: Total Bilirubin 3.0 mg/dl (0.2-1) H 02/12/20 19: AST 184 U/L (15-37) H 02/12/20 19: ALT 362 U/L (12-78) H 02/12/20 19: Alkaline Phosphatase 423 U/L (45-117) H 02/12/20: Total Creatine Kinase 46 U/L (39-308) 02/12/20: CK-MB (CK-2) 1.4 ng/ml (0.5-3.6) 02/12/20: CK/CKMB % Calc 3.0 (0-3.0) 02/12/20: Troponin I < 0.015 ng/ml (0-0.045) 02/12/20: Total Protein 6.7 gm/dl (6.4-8.2) 02/12/20: Albumin 2.6 gm/dl (3.4-5.0) L 02/12/20: Globulin 4.1 gm/dl (2.5-4.0) H 02/12/20: Albumin/Globulin Ratio 0.6 (0.9-2) L 02/12/20: Lipase 85 U/L (73-393) 02/12/20: TSH 7.390 uIu/ml (0.300-4.500) H 02/12/20: Free T4 1.48 ng/dl (0.8-1.6) 02/12/20: Urine Color Dark Yellow 02/12/20: Urine Appearance Clear (Clear) 02/12/20: Urine pH 5.0 (4.5-7.5) 02/12/20 20: Ur Specific [place] > 1.045 (1.000-1.030) H 02/12/20 20: Urine Protein Trace (Negative) H 02/12/20 20:35 Urine Glucose (UA) Negative (Negative) 02/12/20 20:35 Urine Ketones Negative (Negative) 02/12/20 20:35 Urine Blood 3+ (Negative) H 02/12/20 20:35 Urine Nitrite Positive (Negative) A 02/12/20 20:35 Urine Bilirubin 2+ (Negative) H 02/12/20 20:35 Urine Urobilinogen Negative (Negative) 02/12/20 20:35 Ur Leukocyte Esterase 1+ (Negative) H 02/12/20 20:35 Urine WBC (Auto) 1-5 /hpf (0-5) 02/12/20 20:35 Urine RBC (Auto) >30 /hpf (0-4) H 02/12/20 20:35 U Hyaline Cast (Auto) 0 /lpf (0-5) 02/12/20 20:35 U Epithel Cells (Auto) 10-20 /lpf (0-5) H 02/12/20 20:35 Urine Bacteria (Auto) Negative (Negative) 02/12/20 20:35 Calcium Oxalate Crystal Present (None Prsent) A 02/12/20 20:35 Granular Casts 1-5 /lpf (0) H 02/12/20 20:35 Urine Mucus Present (None Prsent) A 02/12/20 20:[address] abdomen pelvis: 1. Mild intrahepatic biliary ductal dilatation with wall thickening and enhancement most pronounced within the common bile duct. This is nonspecific and differential considerations include cholangitis and IgG4 related disease as well as cholangiocarcinoma. Lymphoma could also explain these findings given splenomegaly and lymphadenopathy. Correlation with liver function tests is recommended. 2. Moderate abdominal and pelvic lymphadenopathy, including a 4.1 x 2.4 cm right external iliac lymph node. Moderate splenomegaly. These findings favor a lymphoproliferative disorder such as lymphoma. Metastatic disease could have this appearance but is considered less likely. 3. Marked enlargement of the prostate. Bladder wall thickening and trabeculation which is chronic. Possible urothelial thickening and indistinctness of each renal sinus which could be correlated with urinalysis. Lymphomatous involvement cannot be excluded. 4. Colonic diverticulosis without evidence for acute diverticulitis. No bowel obstruction. Normal appendix. Chest x-ray as per my interpretation cardiomegaly EKG as per my interpretation : Rate 75, LAD, LAFB, T wave abnormalities inferior leads
[2020-02-12 22:21] LABS: INR 1.1 (0.9-1.1); Prothrombin Time 11.5 Seconds (9.0-12.0)
--- NOTE | 2020-02-12 22:32 | Emergency Department Note ---
History of Present Illness General Chief complaint: Hematuria Stated complaint: ABD CRAMPING, HEMATURIA, NEAR SYNCOPE Time Seen by Provider: 02/12/20 18:48 Source: patient, family (son in law), RN notes reviewed and old records reviewed Mode of arrival: ambulatory Limitations: no limitations History of Present Illness Provider complaint: weakness, abd pain Onset (ago): week(s) 3 Location: abdomen Radiation: back Severity: mild Pain Consistency: + intermittent and + now resolved Maximum Pain Intensity: 0 Current Pain Intensity: 0 Quality: + aching Relieved By: + immobilization Exacerbated By: + eating and + movement Associated symptoms: + cough and + loss of appetite; no chest pain, no fever/chills, no headaches, no nausea/vomiting and no shortness of breath Treatments prior to arrival: none This is an 84-year-old male who presents emergency department complaining of generalized weakness that has been ongoing for the past 3 weeks. The patient is brought in by his son-in-law over concerns of the patient has been very weak at home and complaining of abdominal pain. He had a CAT scan done as an outpatient and was to have a follow-up in March for this CAT scan. He reports that the CAT scan showed a "dusting" on his liver. In the meantime the patient has been having abdominal pain that seems to come and go. He describes the pain as an ache with radiation into his back. He reports eating makes the pain worse therefore the patient has no appetite. Nothing seems to make the pain better except rest. He denies any fevers. Home Medications Home Medications Medication Instructions Recorded Confirmed Type aspirin [Aspir-81] 81 mg PO DAILY 02/12/20 02/12/20 History metoprolol tartrate 12.5 mg PO DAILY 02/12/20 02/12/20 History omeprazole 40 mg PO DAILY 02/12/20 02/12/20 History simvastatin 20 mg PO DAILY 02/12/20 02/12/20 History tamsulosin 0.4 mg PO DAILY 02/12/20 02/12/20 History Allergies Allergy/AdvReac Type Severity Reaction Status Date / Time No Known Allergies Allergy Unverified 02/12/20 20:22 Past Med/Surg History Social History Smoking Status: Former smoker Tobacco Type: Cigarettes Feels Safe at Home: Yes Review of Systems A total of 10 systems reviewed and were otherwise negative Physical Exam Vital Signs Vital Signs - 24 hr 02/12/20 18:42 02/12/20 19:00 02/12/20 19:08 Temperature 36.7 C Temperature Source Oral Pulse Rate 86 74 Pulse Rate from SpO2 Sensor Respiratory Rate 20 22 Blood Pressure 83/46 L 117/64 Blood Pressure Mean 58 77 Pulse Oximetry 97 Oxygen Delivery Method Room Air Room Air Sepsis Recent Fever Within 48 Hours No Sepsis New/Unexplained Change in Mental Status N/A Sepsis Action Taken by Nursing No Action Required 02/12/20 19:30 02/12/20 20:00 02/12/20 20:31 Temperature Temperature Source Pulse Rate 75 77 Pulse Rate from SpO2 Sensor 78 Respiratory Rate 22 17 Blood Pressure 120/66 127/75 124/67 Blood Pressure Mean 89 106 96 Pulse Oximetry 96 Oxygen Delivery Method Room Air Sepsis Recent Fever Within 48 Hours Sepsis New/Unexplained Change in Mental Status Sepsis Action Taken by Nursing 02/12/20 21:00 02/12/20 21:30 02/12/20 23:00 Temperature Temperature Source Pulse Rate 79 72 66 Pulse Rate from SpO2 Sensor 78 75 67 Respiratory Rate 18 20 18 Blood Pressure 132/69 119/58 L 125/67 Blood Pressure Mean 89 86 88 Pulse Oximetry 95 95 97 Oxygen Delivery Method Room Air Room Air Room Air Sepsis Recent Fever Within 48 Hours Sepsis New/Unexplained Change in Mental Status Sepsis Action Taken by Nursing VITAL SIGNS - Vital signs and nursing notes were reviewed. GENERAL - 84-year-old male appearing fernandez, stated age who is in no acute distress. Communicates well with provider and answers questions appropriately. SKIN - Without rashes. HEAD - NC/AT. EYES - PERRL with EOMI bilaterally. Sclera anicteric. Palpebral conjunctiva pink and moist with no injection noted. EARS - No deformities of external structures noted on gross examination bilaterally. No pain elicited with palpation of the tragus bilaterally. External auditory canals without discharge or otorrhea. Tympanic membranes pearly carroll without retraction or bulging. No fluid or purulent material visualized behind t he TM. Handle of malleus, umbo, cone of light, pars tensa/flaccid all easily visualized. NOSE - Midline and without cyanosis. No epistaxis or purulent drainage noted. Septum midline without deviation or septal hematoma noted. MOUTH/OROPHARYNX - Without perioral cyanosis. Buccal mucosa pink and moist and without leukoplakia. Tongue midline with equal elevation of palate bilaterally. No tonsillar hypertrophy, erythema, or exudates noted. dentition noted. NECK - Neck with FROM. Supple to palpation. lymphadenopathy noted. No nuchal rigidity. LUNGS - Chest wall symmetric without accessory muscle use, intercostals retractions, or central cyanosis. Normal vesicular breath sounds CTA B/L. No w heezes, rales, or rhonchi appreciated. CARDIAC - RRR with S1/S2. No murmur, rubs, or gallops appreciated. ABDOMEN - Abdominal contour without pulsations or visible masses. BS normoactive all four quadrants. No tenderness, palpable masses, hepatosplenomegaly, or ascites noted. EXTREMITIES - No clubbing or peripheral cyanosis. No pretibial edema present. +3/5 radial, posterior tibial, and dorsalis pedis pulses palpated throughout. +5/5 strength noted in UE/LE bilaterally. NEUROLOGIC - Cranial nerves II through XII grossly intact. Sensory intact to light touch throughout. Patellar reflexes +2/4. PSYCH - A&Ox3 and cooperates fully with examiner. Pt is very pleasant and interacts well with examiner. Course Administered Medications Lactated Ringer's (Lr) 1,000 mls @ 75 mls/hr IV .[id number] ATILIO Stop: 03/13/20 22:29 Last Admin: 02/12/20 23:08 Dose: 75 mls/hr Documented by: [id number] Discontinued Medications Sodium Chloride (Nss 1000ml) 1,000 mls @ 999 mls/hr IV .Q1H1M ONE Stop: 02/12/20 20:08 Last Infusion: 02/12/20 20:33 Dose: 0 mls/hr Documented by: [id number] Admin: 02/12/20 19:32 Dose: 999 mls/hr Documented by: [id number] Sodium Chloride (Nss 1000ml) 1,000 mls @ 999 mls/hr IV .Q1H1M ONE Stop: 02/12/20 21:05 Last Infusion: 02/12/20 22:57 Dose: 0 mls/hr Documented by: [id number] Admin: 02/12/20 21:51 Dose: 999 mls/hr Documented by: [id number] Piperacillin Sod/Tazobactam Sod (Zosyn) 4.5 gm in 120 mls @ 240 mls/hr IV NOW ONE Stop: 02/12/20 21:38 Last Infusion: 02/12/20 22:57 Dose: 0 mls/hr Documented by: [id number] Admin: 02/12/20 21:51 Dose: 240 mls/hr Documented by: [id number] Daptomycin 425 mg/ Syringe 8.5 mls @ 4.25 mls/min IV NOW ONE; Protocol Stop: 02/12/20 21:10 Last Admin: 02/12/20 21:51 Dose: 4.25 mls/min Documented by: [id number] Ioversol (Ioversol 100ml) 93 ml IV ONCE ONE Stop: 02/12/20 19:57 Last Admin: 02/12/20 19:56 Dose: 93 ml Documented by: [id number] Medical Decision Making Differential Diagnosis Appendicitis, testicular torsion, infections, diverticulitis, UTI, obstruction, mesenteric ischemia, aortic pathology, inflammatory bowel disease, renal colic, PUD, pancreatitis, biliary pathology, hernia, volvulus, constipation, as well as other pathologies. Medical Records Attestation: I reviewed the patient's medical records. Home Medications Current Medication List: was personally reviewed by me Laboratory Data Attestation: I reviewed the patient's lab results. Result diagrams: 02/12/20 19:26 02/12/20 19:26 Lab Results 02/12/20 02/12/20 02/12/20 Range/Units 19:26 19:26 19:39 WBC 8.45 (4.8-10.8) K/uL RBC 4.62 L (4.7-6.1) M/uL Hgb 13.9 L (14.0-18.0) g/dL POC Hgb 14.6 (14.0-18.0) g/dl Hct 41.2 L (42-52) % POC Hct 43 (42-52) % MCV 89.2 (80-100) fL MCH 30.1 (25-34) pg MCHC 33.7 (32-36) g/dL RDW Std Deviation 47.3 H (36.4-46.3) fL RDW Coeff of Alan 14.5 (11.5-14.5) % Plt Count 357 (130-400) K/uL MPV 9.2 (7.4-10.4) fL Immature Gran % (Auto) 0.5 % Neut % (Auto) 77.1 % Lymph % (Auto) 15.9 % Williams % (Auto) 5.2 % Eos % (Auto) 0.8 % Baso % (Auto) 0.5 % Neut # (Auto) 6.52 H (1.4-6.5) K/uL Lymph # (Auto) 1.34 (1.2-3.4) K/uL Williams # (Auto) 0.44 (0.11-0.59) K/uL Eos # (Auto) 0.07 (0-0.5) K/uL Baso # (Auto) 0.04 (0-0.2) K/uL Immature Gran # (Auto) 0.04 H (0.00-0.02) K/uL PT (9.0-12.0) Seconds INR (0.9-1.1) POC Sodium 142 (135-144) mmol/L Sodium 143 (136-145) mmol/L POC Potassium 3.6 (3.3-5.0) mmol/L Potassium 3.6 (3.5-5.1) mmol/L POC Chloride 109 (101-112) mmol/L Chloride 114 H (98-107) mmol/L Carbon Dioxide 23 (21-32) mmol/L POC Total CO2 20 L (24-31) mmol/L Anion Gap 6.0 (3-11) POC Anion Gap 19.0 (16-25) mmol/L POC BUN 27 H (7-18) mg/dl BUN 28 H (7-18) mg/dl Creatinine 1.19 (0.6-1.4) mg/dl POC Creatinine 1.1 (0.6-1.3) mg/dl Est Cr Clr Drug Dosing 46.3 ml/min Est GFR ( Amer) 65.5 Est GFR (Non-Af Amer) 56.5 BUN/Creatinine Ratio 23.5 H (10-20) Glucose 116 H (70-99) mg/dl POC Glucose (other) 119 H (70-99) mg/dl Lactate (0.4-2.0) mmol/L Calcium 8.4 L (8.5-10.1) mg/dl POC Ioniz Calcium Kathi 1.13 (1.12-1.32) mmol/l Magnesium 2.1 (1.8-2.4) mg/dl Total Bilirubin 3.0 H (0.2-1) mg/dl AST 184 H (15-37) U/L ALT 362 H (12-78) U/L Alkaline Phosphatase 423 H (45-117) U/L Total Creatine Kinase 46 (39-308) U/L CK-MB (CK-2) 1.4 (0.5-3.6) ng/ml CK/CKMB % Calc 3.0 (0-3.0) Troponin I < 0.015 (0-0.045) ng/ml Total Protein 6.7 (6.4-8.2) gm/dl Albumin 2.6 L (3.4-5.0) gm/dl Globulin 4.1 H (2.5-4.0) gm/dl Albumin/Globulin Ratio 0.6 L (0.9-2) Lipase 85 (73-393) U/L Procalcitonin (0-0.5) ng/ml TSH 7.390 H (0.300-4.500) uIu/ml Free T4 1.48 (0.8-1.6) ng/dl Urine Color Urine Appearance (Clear) Urine pH (4.5-7.5) Ur Specific Flint (1.000-1.030) Urine Protein (Negative) Urine Glucose (UA) (Negative) Urine Ketones (Negative) Urine Blood (Negative) Urine Nitrite (Negative) Urine Bilirubin (Negative) Urine Urobilinogen (Negative) Ur Leukocyte Esterase (Negative) Urine WBC (Auto) (0-5) /hpf Urine RBC (Auto) (0-4) /hpf U Hyaline Cast (Auto) (0-5) /lpf U Epithel Cells (Auto) (0-5) /lpf Urine Bacteria (Auto) (Negative) Calcium Oxalate Crystal (None Prsent) Granular Casts (0) /lpf Urine Mucus (None Prsent) 02/12/20 02/12/20 02/12/20 Range/Units 20:35 22:01 22:01 WBC (4.8-10.8) K/uL RBC (4.7-6.1) M/uL Hgb (14.0-18.0) g/dL POC Hgb (14.0-18.0) g/dl Hct (42-52) % POC Hct (42-52) % MCV (80-100) fL MCH (25-34) pg MCHC (32-36) g/dL RDW Std Deviation (36.4-46.3) fL RDW Coeff of Alan (11.5-14.5) % Plt Count (130-400) K/uL MPV (7.4-10.4) fL Immature Gran % (Auto) % Neut % (Auto) % Lymph % (Auto) % Williams % (Auto) % Eos % (Auto) % Baso % (Auto) % Neut # (Auto) (1.4-6.5) K/uL Lymph # (Auto) (1.2-3.4) K/uL Williams # (Auto) (0.11-0.59) K/uL Eos # (Auto) (0-0.5) K/uL Baso # (Auto) (0-0.2) K/uL Immature Gran # (Auto) (0.00-0.02) K/uL PT (9.0-12.0) Seconds INR (0.9-1.1) POC Sodium (135-144) mmol/L Sodium (136-145) mmol/L POC Potassium (3.3-5.0) mmol/L Potassium (3.5-5.1) mmol/L POC Chloride (101-112) mmol/L Chloride (98-107) mmol/L Carbon Dioxide (21-32) mmol/L POC Total CO2 (24-31) mmol/L Anion Gap (3-11) POC Anion Gap (16-25) mmol/L POC BUN (7-18) mg/dl BUN (7-18) mg/dl Creatinine (0.6-1.4) mg/dl POC Creatinine (0.6-1.3) mg/dl Est Cr Clr Drug Dosing ml/min Est GFR ( Amer) Est GFR (Non-Af Amer) BUN/Creatinine Ratio (10-20) Glucose (70-99) mg/dl POC Glucose (other) (70-99) mg/dl Lactate 0.9 (0.4-2.0) mmol/L Calcium (8.5-10.1) mg/dl POC Ioniz Calcium Kathi (1.12-1.32) mmol/l Magnesium (1.8-2.4) mg/dl Total Bilirubin (0.2-1) mg/dl AST (15-37) U/L ALT (12-78) U/L Alkaline Phosphatase (45-117) U/L Total Creatine Kinase (39-308) U/L CK-MB (CK-2) (0.5-3.6) ng/ml CK/CKMB % Calc (0-3.0) Troponin I (0-0.045) ng/ml Total Protein (6.4-8.2) gm/dl Albumin (3.4-5.0) gm/dl Globulin (2.5-4.0) gm/dl Albumin/Globulin Ratio (0.9-2) Lipase (73-393) U/L Procalcitonin 0.41 (0-0.5) ng/ml TSH (0.300-4.500) uIu/ml Free T4 (0.8-1.6) ng/dl Urine Color Dark Yellow Urine Appearance Clear (Clear) Urine pH 5.0 (4.5-7.5) Ur Specific Flint > 1.045 H (1.000-1.030) Urine Protein Trace H (Negative) Urine Glucose (UA) Negative (Negative) Urine Ketones Negative (Negative) Urine Blood 3+ H (Negative) Urine Nitrite Positive A (Negative) Urine Bilirubin 2+ H (Negative) Urine Urobilinogen Negative (Negative) Ur Leukocyte Esterase 1+ H (Negative) Urine WBC (Auto) 1-5 (0-5) /hpf Urine RBC (Auto) >30 H (0-4) /hpf U Hyaline Cast (Auto) 0 (0-5) /lpf U Epithel Cells (Auto) 10-20 H (0-5) /lpf Urine Bacteria (Auto) Negative (Negative) Calcium Oxalate Crystal Present A (None Prsent) Granular Casts 1-5 H (0) /lpf Urine Mucus Present A (None Prsent) 02/12/20 Range/Units 22:01 WBC (4.8-10.8) K/uL RBC (4.7-6.1) M/uL Hgb (14.0-18.0) g/dL POC Hgb (14.0-18.0) g/dl Hct (42-52) % POC Hct (42-52) % MCV (80-100) fL MCH (25-34) pg MCHC (32-36) g/dL RDW Std Deviation (36.4-46.3) fL RDW Coeff of Alan (11.5-14.5) % Plt Count (130-400) K/uL MPV (7.4-10.4) fL Immature Gran % (Auto) % Neut % (Auto) % Lymph % (Auto) % Williams % (Auto) % Eos % (Auto) % Baso % (Auto) % Neut # (Auto) (1.4-6.5) K/uL Lymph # (Auto) (1.2-3.4) K/uL Williams # (Auto) (0.11-0.59) K/uL Eos # (Auto) (0-0.5) K/uL Baso # (Auto) (0-0.2) K/uL Immature Gran # (Auto) (0.00-0.02) K/uL PT 11.5 (9.0-12.0) Seconds INR 1.1 (0.9-1.1) POC Sodium (135-144) mmol/L Sodium (136-145) mmol/L POC Potassium (3.3-5.0) mmol/L Potassium (3.5-5.1) mmol/L POC Chloride (101-112) mmol/L Chloride (98-107) mmol/L Carbon Dioxide (21-32) mmol/L POC Total CO2 (24-31) mmol/L Anion Gap (3-11) POC Anion Gap (16-25) mmol/L POC BUN (7-18) mg/dl BUN (7-18) mg/dl Creatinine (0.6-1.4) mg/dl POC Creatinine (0.6-1.3) mg/dl Est Cr Clr Drug Dosing ml/min Est GFR ( Amer) Est GFR (Non-Af Amer) BUN/Creatinine Ratio (10-20) Glucose (70-99) mg/dl POC Glucose (other) (70-99) mg/dl Lactate (0.4-2.0) mmol/L Calcium (8.5-10.1) mg/dl POC Ioniz Calcium Kathi (1.12-1.32) mmol/l Magnesium (1.8-2.4) mg/dl Total Bilirubin (0.2-1) mg/dl AST (15-37) U/L ALT (12-78) U/L Alkaline Phosphatase (45-117) U/L Total Creatine Kinase (39-308) U/L CK-MB (CK-2) (0.5-3.6) ng/ml CK/CKMB % Calc (0-3.0) Troponin I (0-0.045) ng/ml Total Protein (6.4-8.2) gm/dl Albumin (3.4-5.0) gm/dl Globulin (2.5-4.0) gm/dl Albumin/Globulin Ratio (0.9-2) Lipase (73-393) U/L Procalcitonin (0-0.5) ng/ml TSH (0.300-4.500) uIu/ml Free T4 (0.8-1.6) ng/dl Urine Color Urine Appearance (Clear) Urine pH (4.5-7.5) Ur Specific Flint (1.000-1.030) Urine Protein (Negative) Urine Glucose (UA) (Negative) Urine Ketones (Negative) Urine Blood (Negative) Urine Nitrite (Negative) Urine Bilirubin (Negative) Urine Urobilinogen (Negative) Ur Leukocyte Esterase (Negative) Urine WBC (Auto) (0-5) /hpf Urine RBC (Auto) (0-4) /hpf U Hyaline Cast (Auto) (0-5) /lpf U Epithel Cells (Auto) (0-5) /lpf Urine Bacteria (Auto) (Negative) Calcium Oxalate Crystal (None Prsent) Granular Casts (0) /lpf Urine Mucus (None Prsent) Imaging Data Attestation: I personally reviewed and interpreted this imaging study as follows: My Impression: 1 view of the chest was interpreted by me shows no evidence of pneumonia congestion or pneumothorax. Radiologist's Impression: [facility], [place] [phone] CT Scan Report Patient: SRINIVASA SHERMAN Admit Date: 02/12/20 MR#: [id number] Address1: [address] [place] [address] Acct ID:[id number] Address2: Date: 1935 [facility] Zip: [place] [id number] Age: 84 Location: ED Sex: M Room/Bed: Att Phy: Diagnosis: ABD CRAMPING, HEMATURIA, NEAR SYNCOPE Devi Phy: Danny Solitario MD Service Date: 02/12/20 [facility] Phy: Interpreting Phy: Torrey Hood MD Admit Phy: Ordering Phy: Elton Baird MD cc: ~ CT OF THE ABDOMEN AND PELVIS WITH CONTRAST CLINICAL HISTORY: Lower abdominal pain. COMPARISON STUDY: None. TECHNIQUE: Following IV administration of 93 mL of Optiray-320, axial images of the abdomen and pelvis were obtained from the lung bases to the proximal femurs. Images were reviewed in the axial, sagittal, and coronal planes. IV contrast was administered without complication. Automated exposure control was utilized for the study. A dose lowering technique was utilized adhering to the principles of ALARA. CT DOSE: 295.50 mGy.cm FINDINGS: The heart is mildly enlarged. Calcified granulomas within the lower lungs are noted. No pneumatosis, free air or portal venous gas is present. Numerous hypodense hepatic lesions measure up to 2.5 cm. These favor cysts. There is mild intrahepatic biliary ductal dilatation. Of note, there is suspected wall thickening of the common bile duct as well as the right and left hepatic ducts. There is also gallbladder wall thickening. The spleen is moderately enlarged. No pancreatic ductal dilatation is present. There is no peripancreatic infiltration. The adrenal glands are normal. A 3.1 cm left renal cyst is noted. Several subcentimeter left renal lesions are too small to characterize but favor cysts. There is slight indistinctness of each renal sinus with possible urothe lial thickening. There is no hydronephrosis or hydroureter. There are no urinary calculi. The prostate is markedly enlarged. Bladder wall is irregular and trabeculated. This is chronic. There is mild dilatation of the left common iliac artery, measuring 1.6 cm. There is moderate aortoiliac atherosclerotic plaque. There is no evidence for a bowel obstruction. The appendix is normal. Numerous enlarged abdominal and pelvic lymph nodes are noted, the largest of which is a 4.1 x 2.4 cm right external iliac node on image 306 of 481. An enlarged ileocolic lymph node measures 3.7 x 1.9 cm. An enlarged portacaval lymph node measures 2.8 x 1.3 cm. Major vasculature is patent. There are no suspicious o sseous lesions. IMPRESSION: 1. Mild intrahepatic biliary ductal dilatation with wall thickening and enhancement most pronounced within the common bile duct. This is nonspecific and differential considerations include cholangitis and IgG4 related disease as well as cholangiocarcinoma. Lymphoma could also explain these findings given splenomegaly and lymphadenopathy. Correlation with liver function tests is recommended. 2. Moderate abdominal and pelvic lymphadenopathy, including a 4.1 x 2.4 cm right external iliac lymph node. Moderate splenomegaly. These findings favor a lymphoproliferative disorder such as lymphoma. Metastatic disease could have this appearance but is considered less likely. 3. Marked enlargement of the prostate. Bladder wall thickening and trabeculation which is chronic. Possible urothelial thickening and indistinctness of each renal sinus which could be correlated with urinalysis. Lymphomatous involvement cannot be excluded. 4. Colonic diverticulosis without evidence for acute diverticulitis. No bowel obstruction. Normal appendix. ACT 112: Negative or not required by law. Electronically signed by: Torrey Hood M.D. 02/12/2020 8:32 PM Dictated: 02/12/201954 Transcribed: 02/12/201954 ECG Data Attestation: I personally reviewed and interpreted this ECG as follows: Indication: + weakness Rate (beats per minute): 73 Rhythm: + normal sinus ECG Intervals/blocks: + Left anterior fascicular block and + Normal QT-c (453) ECG Waldron: + Normal ECG ST segments: no ST depression and no ST elevation Comparison ECG Date: from (08/10/2017) Change: the following changes noted (No PVCs noted) MDM Narrative Patient was seen and evaluated as above in room B7. Review was performed of nursing notes and vital signs. I did review pertinent previous visits and patient history. After obtaining a thorough history and physical examination the above work up was performed. This is an 84-year-old male who presents emergency department complaining of generalized weakness that is been ongoing for the past several months. The patient has an elevation in his liver enzymes as well as his T bili. CAT scan of the abdomen pelvis is concerning for what appears to be a mass. I did discuss my findings with the patient and family strongly recommended admission as the patient has been hypotensive here. I also discussed the findings with gastroenterology who recommended blood cultures and starting the patient on antibiotics. I did discuss the patient with the hospitalist service who agreed to admit the patient. While in the department, I personally reevaluated the patient several times and each time the patient was found to be resting comfortably. The patient was educated upon management, educated upon todays findings/results, educated upon importance of follow up from today's visit, educated upon symptoms in which to return, had questions answered prior to discharge, verbalized understanding, and was discharged home in good condition. An order was placed for continuous cardiac monitoring. The monitor shows a rate of 87 with Normal SInus rhythm. The patient was evaluated during the global COVID-19 pandemic, and that diagnosis was suspected/considered upon their initial presentation. Their evaluation, treatment and testing was consistent with current guidelines for patients who present with complaints or symptoms that may be related to COVID- 19. Impression & Plan Elev transaminase/LDH, Acute hypotension, Acute dehydration Discharge Plan Visit Data Chief Complaint: Hematuria Stated Complaint: ABD CRAMPING, HEMATURIA, NEAR SYNCOPE ED Provider: Elton Baird Discharge Problem: Elev transaminase/LDH, Acute hypotension, Acute dehydration Discharge Instructions Interventions: ED Discharge Assessment Last Done: 02/12/20 23:27 Forms Stand Alone Forms: My [facility] Prescriptions Prescriptions: No Action omeprazole 40 mg capsule,delayed release(DR/EC) 40 mg PO DAILY RF: 0 tamsulosin 0.4 mg capsule 0.4 mg PO DAILY RF: 0 simvastatin 20 mg tablet 20 mg PO DAILY RF: 0 aspirin [Aspir-81] 81 mg Tablet,Delayed Release (Dr/Ec) 81 mg PO DAILY RF: 0 metoprolol tartrate 25 mg tablet 12.5 mg PO DAILY RF: 0
[2020-02-12] MEDS: LACTATED RINGER'S 1,000 ML IV SCH (23:08)
[2020-02-13] MEDS ORDERED: MoRPHine SULFATE 2 MG/ML CARP IV PRN (00:13)
[2020-02-13] MEDS ORDERED: ACETAMINOPHEN 325 MG TAB PO PRN (00:13)
[2020-02-13] MEDS ORDERED: PROMETHAZINE HCL 6.25 MG in SODIUM CHLORIDE 0.9% 50 ML IV PRN (00:13)
[2020-02-13] MEDS ORDERED: traMADol HCL 50 MG TABLET PO PRN (00:13)
[2020-02-13] MEDS: PIPERACILLIN/TAZOBACTAM 3.375 GM in DEXTROSE 5% 100 ML IV SCH ×3 (04:37→20:11)
[2020-02-13 07:58] LABS: Basophils # (auto) 0.02 K/uL (0-0.2); Basophils % (auto) 0.3 %; Eosinophils # (auto) 0.09 K/uL (0-0.5); Eosinophils % (auto) 1.2 %; Hematocrit (blood only) 36.5 % (42-52); Hemoglobin 11.9 g/dL (14.0-18.0); Immature Granulocytes # (auto) 0.03 K/uL (0.00-0.02); Immature Granulocytes % (auto) 0.4 %; Lymphocytes # (auto) 1.16 K/uL (1.2-3.4); Lymphocytes % (auto) 15.6 %; Mean Corpuscular Hemoglobin 29.3 pg (25-34); Mean Corpuscular Hgb Conc 32.6 g/dL (32-36); Mean Corpuscular Volume 89.9 fL (80-100); Mean Platelet Volume 9.2 fL (7.4-10.4); Monocytes # (auto) 0.52 K/uL (0.11-0.59); Neutrophils # (auto) 5.61 K/uL (1.4-6.5); Neutrophils % (auto) 75.5 %; Platelet Count 298 K/uL (130-400); RDW Coefficient of Variation 14.5 % (11.5-14.5); RDW Standard Deviation 47.4 fL (36.4-46.3); Red Blood Count 4.06 M/uL (4.7-6.1); White Blood Count 7.43 K/uL (4.8-10.8)
[2020-02-13 08:28] LABS: BUN Creatinine Ratio 23.1 (10-20); Calcium 8.2 mg/dl (8.5-10.1); Creatinine Clr Calc Pharmacy 56.2 ml/min; Est GFR (African American) 82.9; Est GFR (Non-African American) 71.5; Potassium 3.4 mmol/L (3.5-5.1)
[2020-02-13] MEDS: TAMSULOSIN HCL 0.4 MG CAP PO SCH (08:32)
[2020-02-13] MEDS: METOPROLOL TARTRATE 25 MG TAB PO SCH ×2 (08:32→20:09)
[2020-02-13] MEDS: ASPIRIN 81 MG ECTAB PO SCH (08:32)
[2020-02-13] MEDS: PANTOprazole 40 MG TAB PO SCH (08:32)
[2020-02-13 08:37] LABS: Albumin Globulin Ratio 0.7 (0.9-2); Bilirubin,Total 2.6 mg/dl (0.2-1); Globulin 3.1 gm/dl (2.5-4.0); Total Protein 5.1 gm/dl (6.4-8.2)
[2020-02-13] MEDS ORDERED: ENOXAPARIN INJ 30 MG/0.3 ML SYR SQ SCH (09:00)
--- NOTE | 2020-02-13 09:18 | XRay Report ---
XR chest 1V portable CLINICAL HISTORY: weakness COMPARISON STUDY: Chest radiograph August 10, 2017. FINDINGS: Mild cardiomegaly is unchanged. This no pneumothorax or pleural effusion. There is no conso lidation or evidence for pulmonary edema. Appearance of the chest is unchanged. Calcified granulomas within the left lower lobe are noted. IMPRESSION: No acute cardiopulmonary findings. No change in appearance of the chest. ACT 112: Negative or not required by law. Electronically signed by: Torrey Hood M.D. 02/13/2020 9:16 AM
--- NOTE | 2020-02-13 10:33 | Gastrointestinal Consultation ---
Date of Consultation February 13, 2020 Assessment & Plan (1) Biliary obstruction: (2) Elev transaminase/LDH: (3) Abnormal CT scan: (4) Painless jaundice: no RUQ tenderness or pains at this time. findings concerning for malignancy, cholangiocarcinoma vs. metastatic from other primary. Recs: --NPO post midnight --EUS/ERCP tomorrow to further evaluate with Dr. Gonzales --supportive care, rest as per primary team --f/u blood cultures --ok to continue abx for now Thank you for allowing me to participate in the care of this patient History of Present Illness Attending Physician: Luis Carlos Paul MD 84 yo male here with weakness for the last few weeks. He notes LUQ abdominal pains as well for the last few days with radiation to the back, and decreased appetite recently with weight loss. Also noted to have dark urine. Otherwise denies fevers, chills, n/v and other symptoms. CT shows findings c/w possible biliary malignancy vs. metastatic disease or autoimmune cholangitis. labs reviewed. Allergies Allergy/AdvReac Type Severity Reaction Status Date / Time No Known Allergies Allergy Unverified 02/12/20 20:22 Home Medications Home Medications Medication Instructions Recorded Confirmed Type aspirin [Aspir-81] 81 mg PO DAILY 02/12/20 02/12/20 History metoprolol tartrate 12.5 mg PO DAILY 02/12/20 02/12/20 History omeprazole 40 mg PO DAILY 02/12/20 02/12/20 History simvastatin 20 mg PO DAILY 02/12/20 02/12/20 History tamsulosin 0.4 mg PO DAILY 02/12/20 02/12/20 History Patient History Social History Smoking Status: Former smoker Tobacco Type: Cigarettes Hx Alcohol Use: No Hx Substance Use: No Communication Ability: Effective Beliefs That Will Affect Care: None Current Living Situation: Spouse Other Information That Helps Us Care for You: No Feels Safe at Home: Yes Assistive Devices: None Review of Systems Constitutional: no fever, no chills and no weight loss Eyes: as per Subjective / HPI Ear, Nose, Mouth, Throat: as per Subjective / HPI Respiratory: no dyspnea and no dyspnea on exertion Cardiovascular: no chest pain and no palpitations Gastrointestinal: as per Subjective / HPI Musculoskeletal: no joint pain and no swelling Integumentary: no rash and no lesions Neurologic: no numbness and no paresthesia Psychiatric: no depression and no anxiety Endocrine: no fatigue Hematologic / Lymphatic: no easy bleeding and no easy bruising Physical Exam Constitutional: WD/WN, vitals as above Eyes: EOM intact bilaterally Neck: normal visual inspection Respiratory: normal respiratory effort, lungs clear to auscultation Cardiovascular: RRR, no murmur, no edema Gastrointestinal (Abdomen): Inspection/Auscultation: abdomen normal to inspection; abdomen not distended Percussion/Palpation: abdomen soft; abdomen nontender and no hepatosplenomegaly Musculoskeletal: Extremities: no cyanosis Gait: normal gait Skin: no rashes, warm and dry Neurologic: moves all extremities Psychiatric: A+Ox3, euthymic affect Results & Data ([facility]) Vital Signs (Past 12 Hours) Vital Signs Temp Pulse Pulse Resp BP BP BP 02/13/20 07:44 72 02/13/20 07:24 36.7 C 64 18 122/64 02/13/20 04:00 36.9 C 77 20 119/60 02/13/20 03:56 77 02/13/20 00:08 36.9 C 18 128/62 02/12/20 23:00 66 18 125/67 Pulse Ox 02/13/20 07:44 02/13/20 07:24 96 02/13/20 04:00 95 02/13/20 03:56 02/13/20 00:08 95 02/12/20 23:00 97 PG Care Time/CCT Total # of Minutes Spent Total Time Spent with Patient: Total time spent is greater than 50% in coord ination of care (as documented) at patient's floor/unit and/or counseling patient: Coding Level of Care Code 46445 Initial Inpt Care Lvl 3 Diagnoses Biliary obstruction K83.1 Elev transaminase/LDH Abnormal CT scan R93.89 Painless jaundice R17
[2020-02-13] MEDS: LACTATED RINGER'S 1,000 ML IV SCH (12:14)
--- NOTE | 2020-02-13 12:20 | Electrocardiogram Report ---
Test Reason : Blood Pressure : / mmHG Vent. Rate : 073 BPM Atrial Rate : 073 BPM P-R Int : 166 ms QRS Dur : 098 ms QT Int : 412 ms P-R-T Axes : 050 -46 014 degrees QTc Int : 453 ms Normal sinus rhythm Left anterior fascicular block Abnormal ECG When compared with ECG of 10-AUG-2017 20:40, Premature ventricular complexes are no longer Present Confirmed by Andrew Deras ([id number]) on 02/13/2020 12:20:25 PM Referred By: REFERRED SELF Confirmed By:Andrew Deras
--- NOTE | 2020-02-13 14:18 | Magnetic Resonance Report ---
MRCP CLINICAL HISTORY: Abnormal liver function studies. COMPARISON STUDY: Abdominal CT dated 02/12/2020. TECHNIQUE: Abdominal MRCP is performed utilizing various T2-weighted sequences in the axial and coron al planes. IV contrast was not administered for this examination. 3-D reformats are created and asses sed. The examination is severely degraded by motion artifact which degrades diagnostic utility. FINDINGS: The gallbladder wall is circumferentially thickened. No gallstones are identified. There is mild to m oderate intrahepatic biliary ductal dilatation. The distal common bile duct is normal in caliber saul uring up to 2 mm in diameter. There is likely wall thickening of the common bile duct. No filling def ects are identified to suggest choledocholithiasis. Question narrowing at the confluence of the right and left intrahepatic bile ducts. The pancreatic duct is normal in caliber. There are 2 cystic foci measuring up to 8 mm seen along the course of the pancreatic duct. 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 Scattered hepatic cysts measure up to 2.3 cm. The spleen is enlarged measuring 14.6 cm in length. The pancreas is atrophic and not well evaluated. The kidneys demonstrate mild cortical atrophy and are w ithout hydronephrosis. A 3 cm cyst is noted in the left lower pole. The abdominal aorta is normal in caliber. There is no evidence of bowel obstruction. Adenopathy is noted in the skyler hepatis and uppe r abdomen. No abdominal ascites is identified. The heart is enlarged noting a small pericardial effus ion. There are trace pleural effusions. No destructive bony process is identified. IMPRESSION: 1. Severely motion compromised examination. This degrades diagnostic utility. 2. Question focal narrowing at the confluence of the hepatic ducts and the proximal common bile duct. There is associated intrahepatic biliary ductal dilatation. Cholangitis could have this appearance. A mass lesion ([place] tumor) is not excluded. Consider ERCP for further assessment. 3. There is circumferential wall thickening of the gallbladder as well as the common bile duct. No ga llstones are identified. 4. There is no evidence of choledocholithiasis. 5. Splenomegaly. 6. Trace pleural effusions. 7. Upper abdominal lymphadenopathy. This was better assessed on the recent abdominal CT scan. Dictated: 02/13/2020 1:38 PM Transcribed: 02/13/2020 2:14 PM Desire [id number] Electronically signed by: Les Vasquez M.D. 02/13/2020 2:17 PM
--- NOTE | 2020-02-13 20:05 | Hospitalist Progress Note ---
Date of Service February 13, 2020 Assessment & Plan (1) Biliary obstruction: Biliary obstruction malignancy versus infection --For ERCP tomorrow --N.p.o. post midnight --Follow-up blood cultures Continue Zosyn Abdominal and pelvic lymphadenopathy --Discussed with Dr. Camrichael regarding attempt to perform lymph node biopsy during ERCP Peripheral smear ordered --Unsuccessful, may need CT-guided biopsy of abdominal/pelvic lymphadenopathy Prostatomegaly --No urinary symptoms Has history of BPH, elevated PSA, chronic prostatitis Check PSA level Consult urology chronic diastolic heart failure (EF 55 to 60%, TTE 2018 ) --Euvolemic hx CAD, valvular heart disease (Moderate MR, mild AR/TR TTE 2019) --No cardiac symptoms hypertension --Stable overall history DVT as per records --Hold anticoagulation in light of ERCP tomorrow Hyperglycemia rule out DM -- A1c pending chronic anemia, hemoglobin at baseline past tobacco abuse DVT prophylaxis: Hold Lovenox F ERCP tomorrow Full code Care discussed with patient and his daughter over the phone in detail and at length All questions were answered They are understanding, agreeable, comfortable with plan of care Admission and Anticipated Discharge Date Admission Date: February 12, 2020 Subjective Follow-up for biliary obstruction, abdominal lymphadenopathy Seen sitting up in bed, having dinner In good spirits States he feels fine overall today Abdominal pain improving No nausea vomiting, no melena hematochezia Denies chest pain, shortness of breath, palpitations, dizziness No other symptoms Review of Systems Review of Systems: All systems reviewed & are unremarkable except as noted in Subjective Physical Exam Physical Exam: General- oriented x 3, not in distress, speaks in sentences with no effort or accessory muscle use Head- atraumatic Eyes- PERRL, EOMI, anicteric ENT- oropharynx clear Neck- supple, no JVD, no adenopathy, no thyromegaly; carotids +2/2, no bruits appreciated Lungs- clear to auscultation bilaterally, no rales/wheezes Heart- normal rate, regular rhythm; no murmur, no gallop, no rub appreciated Abdomen- normal bowel sounds, nondistended, soft, nontender, no masses or hepatosplenomegaly Extremities- no pretibial edema, no calf tenderness; peripheral pulses intact Neuro- alert, oriented x 3; CN 2-12 grossly intact; motor 5/5 bilaterally;sensation 100% on all extremities; no other gross focal neurologic deficits Skin- warm & dry Results & Data Results & Data ([facility]) Vital Signs (Past 12 Hours) Vital Signs Temp Pulse Pulse Resp BP Pulse Ox 02/13/20 19:36 36.9 C 67 19 141/67 H 95 02/13/20 15:06 36.8 C 62 18 121/60 96 02/13/20 14:20 81 02/13/20 11:11 36.9 C 57 L 18 131/65 95 Laboratory Results Laboratory Results - last 24 hr 02/12/20 02/12/20 02/12/20 19:26 20:35 22:01 WBC RBC Hgb Hct MCV MCH MCHC RDW Std Deviation RDW Coeff of Alan Plt Count MPV Immature Gran % (Auto) Neut % (Auto) Lymph % (Auto) Duval % (Auto) Eos % (Auto) Baso % (Auto) Neut # (Auto) Lymph # (Auto) Duval # (Auto) Eos # (Auto) Baso # (Auto) Immature Gran # (Auto) Peripher Smr Path Cons PT INR Sodium 143 Potassium 3.6 Chloride 114 H Carbon Dioxide 23 Anion Gap 6.0 BUN 28 H Creatinine 1.19 Est Cr Clr Drug Dosing 46.3 Est GFR ( Amer) 65.5 Est GFR (Non-Af Amer) 56.5 BUN/Creatinine Ratio 23.5 H Glucose 116 H Estimat Average Glucose Hemoglobin A1c Lactate Uric Acid Calcium 8.4 L Magnesium 2.1 Total Bilirubin 3.0 H Direct Bilirubin AST 184 H ALT 362 H Alkaline Phosphatase 423 H Lactate Dehydrogenase Total Creatine Kinase 46 CK-MB (CK-2) 1.4 CK/CKMB % Calc 3.0 Troponin I < 0.015 Total Protein 6.7 Albumin 2.6 L Globulin 4.1 H Albumin/Globulin Ratio 0.6 L Lipase 85 Procalcitonin 0.41 TSH 7.390 H Free T4 1.48 Urine Color Dark Yellow Urine Appearance Clear Urine pH 5.0 Ur Specific Freeburn > 1.045 H Urine Protein Trace H Urine Glucose (UA) Negative Urine Ketones Negative Urine Blood 3+ H Urine Nitrite Positive A Urine Bilirubin 2+ H Urine Urobilinogen Negative Ur Leukocyte Esterase 1+ H Urine WBC (Auto) 1-5 Urine RBC (Auto) >30 H U Hyaline Cast (Auto) 0 U Epithel Cells (Auto) 10-20 H Urine Bacteria (Auto) Negative Calcium Oxalate Crystal Present A Granular Casts 1-5 H Urine Mucus Present A 02/12/20 02/12/20 02/12/20 22:01 22:01 22:01 WBC RBC Hgb Hct MCV MCH MCHC RDW Std Deviation RDW Coeff of Alan Plt Count MPV Immature Gran % (Auto) Neut % (Auto) Lymph % (Auto) Duval % (Auto) Eos % (Auto) Baso % (Auto) Neut # (Auto) Lymph # (Auto) Duval # (Auto) Eos # (Auto) Baso # (Auto) Immature Gran # (Auto) Peripher Smr Path Cons PT 11.5 INR 1.1 Sodium Potassium Chloride Carbon Dioxide Anion Gap BUN Creatinine Est Cr Clr Drug Dosing Est GFR ( Amer) Est GFR (Non-Af Amer) BUN/Creatinine Ratio Glucose Estimat Average Glucose Pending Hemoglobin A1c Pending Lactate 0.9 Uric Acid Calcium Magnesium Total Bilirubin Direct Bilirubin AST ALT Alkaline Phosphatase Lactate Dehydrogenase Total Creatine Kinase CK-MB (CK-2) CK/CKMB % Calc Troponin I Total Protein Albumin Globulin Albumin/Globulin Ratio Lipase Procalcitonin TSH Free T4 Urine Color Urine Appearance Urine pH Ur Specific Freeburn Urine Protein Urine Glucose (UA) Urine Ketones Urine Blood Urine Nitrite Urine Bilirubin Urine Urobilinogen Ur Leukocyte Esterase Urine WBC (Auto) Urine RBC (Auto) U Hyaline Cast (Auto) U Epithel Cells (Auto) Urine Bacteria (Auto) Calcium Oxalate Crystal Granular Casts Urine Mucus 02/13/20 02/13/20 02/13/20 07:36 07:36 07:36 WBC 7.43 RBC 4.06 L Hgb 11.9 L Hct 36.5 L MCV 89.9 MCH 29.3 MCHC 32.6 RDW Std Deviation 47.4 H RDW Coeff of Alan 14.5 Plt Count 298 MPV 9.2 Immature Gran % (Auto) 0.4 Neut % (Auto) 75.5 Lymph % (Auto) 15.6 Duval % (Auto) 7.0 Eos % (Auto) 1.2 Baso % (Auto) 0.3 Neut # (Auto) 5.61 Lymph # (Auto) 1.16 L Duval # (Auto) 0.52 Eos # (Auto) 0.09 Baso # (Auto) 0.02 Immature Gran # (Auto) 0.03 H Peripher Smr Path Cons Pending PT INR Sodium 144 Potassium 3.4 L Chloride 115 H Carbon Dioxide 22 Anion Gap 7.0 BUN 23 H Creatinine 0.98 Est Cr Clr Drug Dosing 56.2 Est GFR ( Amer) 82.9 Est GFR (Non-Af Amer) 71.5 BUN/Creatinine Ratio 23.1 H Glucose 91 Estimat Average Glucose Hemoglobin A1c Lactate Uric Acid Calcium 8.2 L Magnesium Total Bilirubin 2.6 H Direct Bilirubin AST 165 H ALT 292 H Alkaline Phosphatase 310 H Lactate Dehydrogenase 184 Total Creatine Kinase CK-MB (CK-2) CK/CKMB % Calc Troponin I Total Protein 5.1 L D Albumin 2.0 L Globulin 3.1 Albumin/Globulin Ratio 0.7 L Lipase Procalcitonin TSH Free T4 Urine Color Urine Appearance Urine pH Ur Specific Freeburn Urine Protein Urine Glucose (UA) Urine Ketones Urine Blood Urine Nitrite Urine Bilirubin Urine Urobilinogen Ur Leukocyte Esterase Urine WBC (Auto) Urine RBC (Auto) U Hyaline Cast (Auto) U Epithel Cells (Auto) Urine Bacteria (Auto) Calcium Oxalate Crystal Granular Casts Urine Mucus 02/13/20 02/13/20 02/13/20 07:36 16:36 16:36 WBC RBC Hgb Hct MCV MCH MCHC RDW Std Deviation RDW Coeff of Alan Plt Count MPV Immature Gran % (Auto) Neut % (Auto) Lymph % (Auto) Duval % (Auto) Eos % (Auto) Baso % (Auto) Neut # (Auto) Lymph # (Auto) Duval # (Auto) Eos # (Auto) Baso # (Auto) Immature Gran # (Auto) Peripher Smr Path Cons PT INR Sodium Potassium Chloride Carbon Dioxide Anion Gap BUN Creatinine Est Cr Clr Drug Dosing Est GFR ( Amer) Est GFR (Non-Af Amer) BUN/Creatinine Ratio Glucose Estimat Average Glucose Hemoglobin A1c Lactate Uric Acid 3.4 Calcium Magnesium Total Bilirubin Direct Bilirubin 2.0 H AST ALT Alkaline Phosphatase Lactate Dehydrogenase 178 Total Creatine Kinase CK-MB (CK-2) CK/CKMB % Calc Troponin I Total Protein Albumin Globulin Albumin/Globulin Ratio Lipase Procalcitonin TSH Free T4 Urine Color Urine Appearance Urine pH Ur Specific Freeburn Urine Protein Urine Glucose (UA) Urine Ketones Urine Blood Urine Nitrite Urine Bilirubin Urine Urobilinogen Ur Leukocyte Esterase Urine WBC (Auto) Urine RBC (Auto) U Hyaline Cast (Auto) U Epithel Cells (Auto) Urine Bacteria (Auto) Calcium Oxalate Crystal Granular Casts Urine Mucus
[2020-02-14] MEDS: PIPERACILLIN/TAZOBACTAM 3.375 GM in DEXTROSE 5% 100 ML IV SCH ×3 (04:52→20:30)
[2020-02-14 05:58] LABS: Estimated Average Glucose 103 mg/dl; Hemoglobin A1C 5.2 % (4.5-5.6)
[2020-02-14] MEDS: METOPROLOL TARTRATE 25 MG TAB PO SCH ×2 (07:18→20:29)
[2020-02-14] MEDS: PANTOprazole 40 MG TAB PO SCH (07:19)
[2020-02-14] MEDS: TAMSULOSIN HCL 0.4 MG CAP PO SCH (07:19)
[2020-02-14] MEDS: ASPIRIN 81 MG ECTAB PO SCH (07:19)
--- NOTE | 2020-02-14 08:38 | Urology Consultation ---
Date of Consultation February 14, 2020 Assessment & Plan (1) BPH (benign prostatic hypertrophy): 84 yo M admitted for abdominal pain, weakness, and elevated LFTs. - CT A/P reviewed and discussed with patient - large prostate, possible upper tract abnormality with urothelial thickening and indistinctness of each renal sinus noted, likely needs further work-up - Reviewed plan with Dr. Shi - No acute intervention planned from perspective - Pending GI work-up, allow acute GI issues to resolve - Continue Tamsulosin - PSA 3.64 acceptable for age - Recommend patient follow-up outpatient with his established urologist for further evaluation Thank you for allowing us to participate in the acute care of Mr. Gray. Please reconsult us with additional questions, concerns or changes in patient status. History of Present Illness Reason for Consultation: Marked prostatomegaly Requesting Physician: Dr. Paul Attending Physician: Luis Carlos Paul MD History of Present Illness 84 yo M admitted for abdominal pain, weakness, and elevated LFTs. PMHx of BPH, elevated PSA, history of DVT, CAD s/p stent. Patient presented to [facility] ED on 02/12/20 with symptoms of weakness, abdominal pain and hematuria. Lab work on admission: WBC 7.43, Hgb 11.9, Creatinine 0.98, elevated LFTs. He was admitted for further evaluation and management. He is undergoing work-up for biliary obstruction and abdominal and pelvic lymphadenopathy. Our service is consulted for marked prostatomegaly. Contrast enhanced CT A/P demonstrated 1. Mild intrahepatic biliary ductal dilatation with wall thickening and enhancement most pronounced within the common bile duct. 2. Moderate abdominal and pelvic lymphadenopathy, including a 4.1 x 2.4 cm right external iliac lymph node. Moderate splenomegaly. These findings favor a lymphoproliferative disorder such as lymphoma. Metastatic disease could have this appearance but is considered less likely. 3. Marked enlargement of the prostate. Bladder wall thickening and trabeculation which is chronic. Possible urothelial thickening and indistinctness of each renal sinus which could be correlated with urinalysis. Lymphomatous involvement cannot be excluded. 4. Colonic diverticulosis without evidence for acute diverticulitis. No bowel o bstruction. Normal appendix. Chart review: Afebrile overnight Creatinine 02/13 - 0.89 WBC 02/12 - 7.43 PSA 02/13 - 3.640 BCx - no growth x 24 hours On IV Zosyn Scheduled for ERCP today Patient examined at bedside. Awake and sitting up in bed. Offers no complaints at present. Denies issues overnight. No abdominal, flank or suprapubic pain. Voiding spontaneously. Denies dysuria or hematuria. No nausea or vomiting. No fever or chills. Per his report, he follows with a urologist in [place] for BPH and elevated PSA, Dr. Martínez. He remains on Tamsulosin. Reports history of PSA elevation, cannot recall most recent PSA results. Baseline urinary symptoms are not overly bothersome. Nocturia 1-2x. Feels he is emptying. No bothersome urgency or frequency. Previous PSA on chart 48.9 in August 2017. No additional results to review at time of exam. No additional concerns today. Allergies Allergy/AdvReac Type Severity Reaction Status Date / Time No Known Allergies Allergy Unverified 02/12/20 20:22 Home Medications Home Medications Medication Instructions Recorded Confirmed Type aspirin [Aspir-81] 81 mg PO DAILY 02/12/20 02/12/20 History metoprolol tartrate 12.5 mg PO DAILY 02/12/20 02/12/20 History omeprazole 40 mg PO DAILY 02/12/20 02/12/20 History simvastatin 20 mg PO DAILY 02/12/20 02/12/20 History tamsulosin 0.4 mg PO DAILY 02/12/20 02/12/20 History Patient History Medical History (Updated 02/14/20 @ 11:24 by PERLA Trinidad) BPH (benign prostatic hypertrophy) Elevated PSA Social History Smoking Status: Former smoker Tobacco Type: Cigarettes Hx Alcohol Use: No Hx Substance Use: No Communication Ability: Effective Beliefs That Will Affect Care: None Current Living Situation: Spouse Other Information That Helps Us Care for You: No Feels Safe at Home: Yes Assistive Devices: None Review of Systems Constitutional: as per Subjective / HPI Gastrointestinal: as per Subjective / HPI Genitourinary: + as per Subjective / HPI Physical Exam Constitutional: well developed and well nourished; no acute distress and not ill appearing Respiratory: normal respiratory effort and able to speak in complete sentences; no respiratory distress and no labored breathing Cardiovascular: Extremities: no pedal edema Gastrointestinal (Abdomen): Inspection/Auscultation: abdomen normal to inspection; abdomen not distended Percussion/Palpation: abdomen soft; abdomen nontender and no guarding Musculoskeletal: Head/Neck/Chest: normocephalic and head atraumatic Extremities: extremities normal to inspection Skin: no rashes, warm and dry Neurologic: moves all extremities and awake Psychiatric: A+Ox3, euthymic affect Genitourinary: no CVA tenderness Results & Data ([facility]) Vital Signs (Past 12 Hours) Vital Signs Temp Pulse Pulse Resp BP Pulse Ox 02/14/20 07:46 36.5 C 71 20 109/58 L 95 02/14/20 04:01 37 C 60 17 155/60 H 95 02/14/20 00:22 60 02/13/20 22:38 36.8 C 60 19 PG Care Time/CCT Total # of Minutes Spent Total Time Spent with Patient: Total time spent is greater than 50% in coordination of care (as documented) at patient's floor/unit and/or counseling patient: Coding Level of Care Code 03365 Initial Inpt Care Lvl 3 Diagnoses BPH (benign prostatic hypertrophy) N40.0
--- NOTE | 2020-02-14 09:12 | Communication Note ---
Date of Service: February 14, 2020 Pt was seen this AM, remains NPO for EUS/ERCP this afternoon. AM labs are pending. Offers no acute concerns. Rapid COVID-19 test was ordered. Please keep NPO.
[2020-02-14 09:15] LABS: Albumin Level 2.1 gm/dl (3.4-5.0); BUN Creatinine Ratio 22.3 (10-20); Bilirubin Direct 1.1 mg/dl (0-0.2); Calcium 8.3 mg/dl (8.5-10.1); Creatinine Clr Calc Pharmacy 61.9 ml/min; Est GFR (African American) 92.3; Est GFR (Non-African American) 79.6; Potassium 3.6 mmol/L (3.5-5.1)
[2020-02-14 09:19] LABS: Bilirubin,Total 1.8 mg/dl (0.2-1); Total Protein 5.4 gm/dl (6.4-8.2)
[2020-02-14] MEDS ORDERED: fentaNYL citrate 100 MCG/2 ML VIAL ONE (14:14)
[2020-02-14] MEDS ORDERED: IOVERSOL 50ml IV ONE (14:38)
--- NOTE | 2020-02-14 14:47 | History & Physical Bridge Note ---
Date of Service February 14, 2020 History & Physical Bridge Note I have examined the patient, reviewed the History & Physical and in the interval since the performance of the History & Physical I have noted the following changes of clinical significance: no changes noted. The patient was referred for endoscopic ultrasound and ERCP are he presented with irregular changes of his bowel habit and was found to have increased liver test elevation. Imaging findings are suggestive of either a biliary stricture or perhaps cholangiocarcinoma. Planning to proceed with upper endoscopy, endoscopic ultrasound and ERCP. We have discussed the risks of the procedures to include bleeding, infection, perforation, pain, cryptitis and failed biliary cannulation.
[2020-02-14] MEDS ORDERED: INDOMETHACIN 50 MG SUPP PR ONE (14:48)
--- NOTE | 2020-02-14 15:02 | Anesthesiology Consultation ---
Date of Service February 14, 2020 Assessment & Plan (1) Encounter for pre-operative examination: Chart Review Chart Review: Acceptable Risk for Surgery and Patient NOT seen in Pre Admission Testing Consults Requested none ASA ASA3 Proposed Anesthesia Anesthesia Type: General Risk / Benefits Reviewed With: PT / POA / Parent / Guardian, Accepts Plan and Informed Consent Obtained History Surgery Operation Date: 02/14/20 07:00 Proposed Procedures p Endoscopic Retrograde Cholangiopancreatogram - Ky Gonzales s Upper Endoscopic Ultrasonography - Ky Gonzales Height/Weight Height: 5 ft 8 in Weight: 69.9 kg Allergies Allergy/AdvReac Type Severity Reaction Status Date / Time No Known Allergies Allergy Unverified 02/12/20 20:22 Medications Home Medications Medication Instructions Recorded Confirmed Last Taken aspirin [Aspir-81] 81 mg PO DAILY 02/12/20 02/12/20 02/12/20 metoprolol tartrate 12.5 mg PO DAILY 02/12/20 02/12/20 02/12/20 omeprazole 40 mg PO DAILY 02/12/20 02/12/20 02/12/20 simvastatin 20 mg PO DAILY 02/12/20 02/12/20 02/11/20 tamsulosin 0.4 mg PO DAILY 02/12/20 02/12/20 02/12/20 Active Medications Generic Name Dose Route Start Last Admin Trade Name Freq PRN Reason Stop Dose Admin Aspirin 81 mg 02/13/20 09:00 02/14/20 07:19 Aspirin 81 Mg Ectab PO 03/14/20 08:59 81 mg DAILY ATILIO Administration Enoxaparin Sodium 30 mg 02/13/20 09:00 02/13/20 08:32 Enoxaparin Inj 30 Mg/0.3 Ml Syr SQ 03/14/20 08:59 30 mg QAM ATILIO Administration Piperacillin Sod/Tazobactam 115 mls @ 28.75 mls/hr 02/13/20 04:00 02/14/20 13:20 Sod 3.375 gm/ Dextrose IV 02/23/20 03:59 28.8 mls/hr Q8H ATILIO Infusion Protocol Metoprolol Tartrate 12.5 mg 02/13/20 09:00 02/14/20 07:18 Metoprolol Tartrate 25 Mg Tab PO 03/14/20 08:59 12.5 mg BID ATILIO Administration Pantoprazole Sodium 40 mg 02/13/20 09:00 02/14/20 07:19 Pantoprazole 40 Mg Tab PO 03/14/20 08:59 40 mg DAILY ATILIO Administration Tamsulosin HCl 0.4 mg 02/13/20 09:00 02/14/20 07:19 Tamsulosin Hcl 0.4 Mg Cap PO 03/14/20 08:59 0.4 mg DAILY ATILIO Administration NPO Date Last Intake of Fluids: 02/13/20 Time Last Intake of Fluids: 18:00 Date Last Intake of Solids: 02/13/20 Time Last Intake of Solids: 18:00 Past Medical History Medical History BPH (benign prostatic hypertrophy) Elevated PSA Exercise / Class Metabolic Activity II 4-5 Yardwork/Stairs/Walk up hill Past Anesthesia History No Hx of Anesthesia Complications and No Family Hx of Anesthesia Complications History of PONV No Hx of PONV and No Hx of Motion Sickness Social History Smoking Status: Former smoker Hx Alcohol Use: No alcohol intake frequency: 0-2 drinks per day Hx Substance Use: No Physical Exam Vital Signs Last Vital Signs Temp 36.8 C 02/14/20 14:17 Pulse 64 02/14/20 14:17 Resp 19 02/14/20 14:17 BP 142/79 H 02/14/20 14:17 Pulse Ox 96 02/14/20 14:17 ENMT Mouth: no dentition abnormality Thyromental Distance: > or= 3.5 Finger Breadths Mallampati Class: II Neck normal visual inspection Respiratory normal respiratory effort Auscultation: lungs clear to auscultation bilaterally Cardiovascular Rate/Rhythm: regular rate and regular rhythm Skin jaundice Psychiatric Orientation: alert Testing Laboratory Results 02/13/20 07:36 02/14/20 05:32 PT 11.5 Seconds (9.0-12.0) 02/12/20 22:01 INR 1.1 (0.9-1.1) 02/12/20 22:01 Hemoglobin A1c 5.2 % (4.5-5.6) 02/12/20 22:01 Urine Color Dark Yellow 02/12/20 20:35 Urine Appearance Clear (Clear) 02/12/20 20:35 Urine pH 5.0 (4.5-7.5) 02/12/20 20:35 Ur Specific [place] > 1.045 (1.000-1.030) H 02/12/20 20:35 Urine Protein Trace (Negative) H 02/12/20 20:35 Urine Glucose (UA) Negative (Negative) 02/12/20 20:35 Urine Ketones Negative (Negative) 02/12/20 20:35 Urine Nitrite Positive (Negative) A 02/12/20 20:35 Ur Leukocyte Esterase 1+ (Negative) H 02/12/20 20:35 Urine WBC (Auto) 1-5 /hpf (0-5) 02/12/20 20:35 Urine RBC (Auto) >30 /hpf (0-4) H 02/12/20 20:35 U Hyaline Cast (Auto) 0 /lpf (0-5) 02/12/20 20:35 U Epithel Cells (Auto) 10-20 /lpf (0-5) H 02/12/20 20:35 Urine Bacteria (Auto) Negative (Negative) 02/12/20 20:35 02/12/20 22:01 Aerobic Blood Culture - Preliminary Blood No growth in Aerobic bottle after 24 hours. Anaerobic Blood Culture - Preliminary No growth in Anaerobic bottle after 24 hours. 02/12/20 22:05 Aerobic Blood Culture - Preliminary Blood No growth in Aerobic bottle after 24 hours. Anaerobic Blood Culture - Preliminary No growth in Anaerobic bottle after 24 hours.
[2020-02-14] MEDS ORDERED: ONDANSETRON INJ 2 MG/ML 2 ML VIAL IV PRN (15:06)
[2020-02-14] MEDS ORDERED: ATROPINE SULFATE 0.1 MG/ML 10ML SYR IV PRN (15:06)
[2020-02-14] MEDS ORDERED: fentaNYL citrate 100 MCG/2 ML VIAL IV PRN (15:06)
[2020-02-14] MEDS ORDERED: ePHEDrine sulfate 50 MG/ML AMP IV PRN (15:06)
[2020-02-14] MEDS ORDERED: ONDANSETRON INJ 2 MG/ML 2 ML VIAL ONE (15:26)
[2020-02-14] MEDS ORDERED: LIDOCAINE HCL 2% 2 ML VIAL/AMP(20MG/ML) INFIL ONE (15:26)
[2020-02-14] MEDS ORDERED: PROPOFOL IV EMULSION 10 MG/ML 20 ML VIAL IV ONE (15:26)
--- NOTE | 2020-02-14 15:26 | GI REPORT ---
Patient Name: Dedrick Gray Procedure Date: 02/14/2020 3:03 PM Date of : 1935 Admit Type: Inpatient Age: 84 Gender: Male Attending MD: Ky Gonzales DO Procedure: Upper GI endoscopy Providers: Ky Gonzales DO Referring MD: Danny Loomis Indications: Epigastric abdominal pain Medicines: General Anesthesia Complications: No immediate complications. Estimated blood loss: Minimal. Estimated Blood Loss: Estimated blood loss was minimal. Procedure: Pre-Anesthesia Assessment: - Prior to the procedure, a History and Physical was performed, and patient medications, allergies and sensitivities were reviewed. The patient's tolerance of previous anesthesia was reviewed. - The risks and benefits of the procedure and the sedation options and risks were discussed with the patient. All questions were answered and informed consent was obtained. - Patient identification and proposed procedure were verified prior to the procedure by the physician, the nurse and the city councilman. The procedure was verified in the procedure room. - Pre-procedure physical examination revealed no contraindications to sedation. - ASA Grade Assessment: III - A patient with severe systemic disease. - After reviewing the risks and benefits, the patient was deemed in satisfactory condition to undergo the procedure. - The anesthesia plan was to use general anesthesia. - Immediately prior to administration of medications, the patient was re-assessed for adequacy to receive sedatives. - The heart rate, respiratory rate, oxygen saturations, blood pressure, adequacy of pulmonary ventilation, and response to care were monitored throughout the procedure. - The physical status of the patient was re-assessed after the procedure. After obtaining informed consent, the endoscope was passed under direct vision. Throughout the procedure, the patient's blood pressure, pulse, and oxygen saturations were monitored continuously. The Endoscope was introduced through the mouth, and advanced to the third part of duodenum. The upper GI endoscopy was accomplished without difficulty. The patient tolerated the procedure well. Findings: The examined esophagus was normal. The entire examined stomach was normal. The examined duodenum was normal. Impression: - Normal esophagus. - Normal stomach. - Normal examined duodenum. - No specimens collected. Recommendation: - Perform an upper endoscopic ultrasound (UEUS) today. Ky Gonzales D.O. Ky Gonzales DO 02/14/2020 3:26:20 PM This report has been signed electronically. Note Initiated On: 02/14/2020 3:03 PM Number of Addenda: 0 I attest to the content of the Intraoperative Record and orders documented therein, exceptions below {[id number]}
[2020-02-14] MEDS ORDERED: SUCCINYLCHOLINE CHLORIDE 20 MG/ML 10 ML VIAL IV ONE (15:34)
[2020-02-14] MEDS ORDERED: ROCURONIUM BROMIDE 10 MG/ML 5 ML VIAL IV ONE (15:34)
[2020-02-14] MEDS ORDERED: LARYING-O-JET KIT (LTA) ONE (15:35)
[2020-02-14] MEDS ORDERED: ePHEDrine sulfate 50 MG/ML SYR ONE (16:04)
--- NOTE | 2020-02-14 16:29 | Post Operative Brief Note ---
Immediate Post Op Note v1 Date of Surgery February 14, 2020 Pre & Post Diagnosis Operation Date: 02/14/20 07:00 Pre-Op Diagnosis: TRANSIENT HYPOTENSION; BILIARY OBSTRUCTION Post-Op Diagnosis: Biliry stricture, portal LN I identified the patient and participated in the time-out.: Yes Procedure Operation Date: 02/14/20 07:00 Actual Procedures p Endoscopic Retrograde Cholangiopancreatogram - Ky Gonzales s Upper Endoscopic Ultrasonography, Upper Gastrointestinal Endoscopy - Ky Gonzales Surgeon Ky Gonzales [place] Mixer Operator none Estimated Blood Loss 0 Findings Consistent with Post-Op Diagnosis
--- NOTE | 2020-02-14 16:40 | GI REPORT ---
Patient Name: Dedrick Gray Procedure Date: 02/14/2020 3:04 PM Date of : 1935 Admit Type: Inpatient Age: 84 Gender: Male Attending MD: Ky Gonzales DO Procedure: ERCP Providers: Ky Gonzales DO Referring MD: Danny Loomis Indications: Jaundice, Elevated liver enzymes Medicines: General Anesthesia Complications: No immediate complications. Estimated blood loss: Minimal. Estimated Blood Loss: Estimated blood loss was minimal. Procedure: Pre-Anesthesia Assessment: - Prior to the procedure, a History and Physical was performed, and patient medications, allergies and sensitivities were reviewed. The patient's tolerance of previous anesthesia was reviewed. - The risks and benefits of the procedure and the sedation options and risks were discussed with the patient. All questions were answered and informed consent was obtained. - Patient identification and proposed procedure were verified prior to the procedure by the physician, the nurse and the paper processing machine helper. The procedure was verified in the procedure room. - Pre-procedure physical examination revealed no contraindications to sedation. - ASA Grade Assessment: III - A patient with severe systemic disease. - After reviewing the risks and benefits, the patient was deemed in satisfactory condition to undergo the procedure. - The anesthesia plan was to use general anesthesia. - Immediately prior to administration of medications, the patient was re-assessed for adequacy to receive sedatives. - The heart rate, respiratory rate, oxygen saturations, blood pressure, adequacy of pulmonary ventilation, and response to care were monitored throughout the procedure. - The physical status of the patient was re-assessed after the procedure. After obtaining informed consent, the scope was passed under direct vision. Throughout the procedure, the patient's blood pressure, pulse, and oxygen saturations were monitored continuously. The Scope was introduced through the mouth, and advanced to the duodenum and used to inject contrast into the bile duct. The ERCP was accomplished without difficulty. The patient tolerated the procedure well. Findings: The shear assembler film was normal. The esophagus was successfully intubated under direct vision without detailed examination of the pharynx, larynx, and associated structures, and upper GI tract. The upper GI tract was grossly normal. The major papilla was normal. The bile duct was deeply cannulated with the short-nosed traction sphincterotome and guidewire. Contrast was injected. I personally interpreted the bile duct images. Contrast extended to the entire biliary tree. The main bile duct contained a single segmental stenosis. The common hepatic duct and left and right hepatic ducts and all intrahepatic branches were borderline dilated. Biliary sphincterotomy was made with a monofilament Fusion OMNI sphincterotome using ERBE electrocautery. There was no post-sphincterotomy bleeding. Cells for cytology were obtained by brushing in the entire main bile duct. One 10 Fr by 10 cm biliary stent with a single external flap and a single internal flap was placed 9 cm into the common bile duct. Bile flowed through the stent. The stent was in good position. Indomethacin 100 mg was given via suppository to decrease the risk of post-ERCP pancreatitis (PEP). Impression: - The major papilla appeared normal. - A single segmental biliary stricture was found in the entire main bile duct. The stricture was indeterminate. - The left and right hepatic ducts and all intrahepatic branches and common hepatic duct were borderline dilated. - A biliary sphincterotomy was performed. - Cells for cytology obtained in the main bile duct. - One biliary stent was placed into the common bile duct. - Indomethacin given to decrease risk of post-ERCP pancreatitis. Recommendation: - Avoid aspirin and nonsteroidal anti-inflammatory medicines for 5 days (may use Baby aspirin). - Clear liquid diet today. - Use broad spectrum antibiotics for 5 days. - Await cytology results. Ky Gonzales D.O. Ky Gonzales, 02/14/2020 4:40:02 PM This report has been signed electronically. Note Initiated On: 02/14/2020 3:04 PM Number of Addenda: 0 I attest to the content of the Intraoperative Record and orders documented therein, exceptions below {[id number]}
--- NOTE | 2020-02-14 16:47 | GI REPORT ---
Patient Name: Dedrick Gray Procedure Date: 02/14/2020 2:59 PM Date of : 1935 Admit Type: Inpatient Age: 84 Gender: Male Attending MD: Ky Gonzales DO Procedure: Upper EUS Providers: Ky Gonzales DO Referring MD: Danny Loomis Indications: Common bile duct dilation (acquired) seen on MRI Medicines: General Anesthesia Complications: No immediate complications. Estimated blood loss: Minimal. Estimated Blood Loss: Estimated blood loss was minimal. Procedure: Pre-Anesthesia Assessment: - Prior to the procedure, a History and Physical was performed, and patient medications, allergies and sensitivities were reviewed. The patient's tolerance of previous anesthesia was reviewed. - The risks and benefits of the procedure and the sedation options and risks were discussed with the patient. All questions were answered and informed consent was obtained. - Patient identification and proposed procedure were verified prior to the procedure by the physician, the nurse and the plant attendant. The procedure was verified in the procedure room. - Pre-procedure physical examination revealed no contraindications to sedation. - ASA Grade Assessment: III - A patient with severe systemic disease. - After reviewing the risks and benefits, the patient was deemed in satisfactory condition to undergo the procedure. - The anesthesia plan was to use general anesthesia. - Immediately prior to administration of medications, the patient was re-assessed for adequacy to receive sedatives. - The heart rate, respiratory rate, oxygen saturations, blood pressure, adequacy of pulmonary ventilation, and response to care were monitored throughout the procedure. - The physical status of the patient was re-assessed after the procedure. After obtaining informed consent, the endoscope was passed under direct vision. Throughout the procedure, the patient's blood pressure, pulse, and oxygen saturations were monitored continuously. The upper EUS was accomplished without difficulty. The patient tolerated the procedure well. The Scope was introduced through the mouth, and advanced to the second part of duodenum. The Endosonoscope was introduced through the mouth, and advanced to the second part of duodenum. Findings: ENDOSONOGRAPHIC FINDING: : There was no sign of significant endosonographic abnormality in the ampulla. No masses were identified. diffuse Intrahepatic ductal dilation was noted There was no sign of significant endosonographic abnormality in the left adrenal gland. No adrenal gland enlargement was identified. Diffuse bile duct wall thickening extending from just below the common hepatic duct to the distal common bile duct was noted. This measured approximately 3 mm. No obvious mass lesion was seen within the bile duct. Endosonographic imaging in the gallbladder showed no stones, sludge or mass. Gallbladder wall was diffusely thickened measuring 4 mm. No obvious mass or dilation of the gallbladder was noted There was no sign of significant endosonographic abnormality in the entire pancreas. The pancreatic duct measured up to 1 mm in diameter. No masses, no cysts, no calcifications. Many enlarged lymph nodes were visualized in the skyler hepatis region. The largest measured 16 mm by 14 mm in maximal cross-sectional diameter. The nodes were triangular, hypoechoic and had well defined margins. Fine needle aspiration for cytology was performed. Color Doppler imaging was utilized prior to needle puncture to confirm a lack of significant vascular structures within the needle path. Four passes were made with the 22 gauge needle using a transduodenal approach. A stylet was used. A global supply chain vice president was present to evaluate the adequacy of the specimen. Final cytology results are pending. Estimated blood loss was minimal. Impression: - There was no sign of significant pathology in the ampulla. - Endosonographic images of the left adrenal gland were unremarkable. - There was no sign of significant pathology in the entire pancreas. - Many enlarged lymph nodes were visualized in the skyler hepatis region. Fine needle aspiration performed. -Diffuse wall thickening of the common bile duct was noted. This could represent a process such as autoimmune cholangiopathy or perhaps an extrahepatic cholangiocarcinoma. Recommendation: - Perform an ERCP today. Ky Gonzales D.O. Ky Gonzales, 02/14/2020 4:47:08 PM This report has been signed electronically. Note Initiated On: 02/14/2020 2:59 PM Number of Addenda: 0 I attest to the content of the Intraoperative Record and orders documented therein, exceptions below {[id number]}
--- NOTE | 2020-02-14 16:49 | Communication Note ---
this afternoon.The patient underwent upper endoscopy endoscopic ultrasound and ERCP. upper digestive tract was normal endoscopically. The endoscopic ultrasound was notable for diffuse wall thickening of the common bile duct in addition to lymphadenopathy. An ERCP was performed during which time a biliary sphincterotomy was made and a biliary stent was placed. We obtained brush cyto logy from the common bile duct and a fine-needle aspiration from lymph nodes. I wonder if this may be an atypical presentation of autoimmune cholangiopathy or perhaps cholangiocarcinoma. Recommendations Clear liquid diet tonight Continue antibiotic coverage for total of 5 days Await cytology results We will have patient undergo outpatient testing with an MEHRDAD in addition to IgG subsets to screen for evidence of IgG4 elevation Date of Service: February 14, 2020
--- NOTE | 2020-02-14 16:51 | Fluoroscopy Report ---
INTRAOPERATIVE RADIOGRAPHS CLINICAL HISTORY: ERCP. Fluoroscopy time: 1 minute 3 seconds. FINDINGS: 9 spot fluoroscopic images of the right upper quadrant from an ERCP procedure are correlate d with abdominal CT dated 02/12/2020 and MRCP dated 02/13/2020. The initial image shows the endoscope projecting over the stomach with a wire in the common bile duct. There is contrast opacification of the bile ducts. There is only mild dilatation of the intrahepatic ducts. The common bile duct is norm al in caliber. No filling defects are clearly identified. Mild narrowing is again suggested in the he patic hilum. The final image shows a common bile duct stent in place. IMPRESSION: Intraoperative ERCP images as above. See operative report for detailed findings. Electronically signed by: Les Vasquez M.D. 02/14/2020 4:50 PM
--- NOTE | 2020-02-14 17:23 | Anesthesiology Progress Note ---
Date of Service February 14, 2020 Anesthesia Post Procedure Vital Signs Vital Signs: Temp Pulse Pulse Pulse Resp BP Pulse Ox 02/14/20 17:15 99.0 F 63 18 142/66 H 95 02/14/20 17:10 66 23 137/70 96 02/14/20 17:00 70 17 125/65 96 02/14/20 16:50 62 20 134/70 99 02/14/20 16:42 97.3 F L 69 21 112/75 100 02/14/20 14:17 98.2 F 64 19 142/79 H 96 02/14/20 11:30 98.2 F 62 20 131/71 94 02/14/20 07:46 97.7 F 71 20 109/58 L 95 02/14/20 04:01 98.6 F 60 17 155/60 H 95 02/14/20 00:22 60 02/13/20 22:38 98.2 F 60 19 02/13/20 19:36 98.4 F 67 19 141/67 H 95 Transfer of Care Handoff Completed per policy Notes Mental Status: alert / awake / arousable and participated in evaluation Patient Amnestic to Procedure: Yes Nausea / Vomiting: adequately controlled Pain: adequately controlled Airway Patency, RR, SpO2: stable & adequate BP & HR: stable & adequate Hydration State: stable & adequate Anesthetic Complications: no major complications apparent and Pt Satisfied with anesthetic care
--- NOTE | 2020-02-14 21:47 | Hospitalist Progress Note ---
Date of Service Delayed entry Date of service below February 14, 2020 Assessment & Plan (1) Biliary obstruction: Biliary obstruction malignancy versus infection --Status post ERCP with stent placement in the common bile duct, biopsy also obtained, pending Lymph node biopsy also obtained, pending --Bilirubin and LFTs improving --Clear liquid diet --Blood cultures negative so far Continue Zosyn for total of 5 days per GI Abdominal and pelvic lymphadenopathy --Discussed with Dr. Carmichael regarding attempt to perform lymph node biopsy during ERCP Peripheral smear: Mild normochromic, normocytic anemia which is chronic, #thought is normal, features of lymphoproliferative disorder NOT seen on the smear --Follow-up biopsy obtained during ERCP Prostatomegaly --No urinary symptoms Has history of BPH, elevated PSA, chronic prostatitis PSA level 3.[address] Shi consulted: No acute evaluation, continue tamsulosin Chronic diastolic heart failure (EF 55 to 60%, TTE 2018 ) --Euvolemic hx CAD, valvular heart disease (Moderate MR, mild AR/TR TTE 2019) --No cardiac symptoms hypertension --Stable overall history DVT as per records --Hold anticoagulation in light of ERCP Hyperglycemia rule out DM -- A1c 5.2 chronic anemia, hemoglobin at baseline past tobacco abuse DVT prophylaxis: Hold Lovenox in light of ERCP with biopsy Full code Care discussed with patient and his daughter over the phone in detail and at length All questions were answered They are understanding, agreeable, comfortable with plan of care Disposition Dissipate discharge to home when medically stable Follow-up with PCP, GI service Admission and Anticipated Discharge Date Admission Date: February 12, 2020 Subjective Follow-up for biliary obstruction Seen resting in bed, status post ERCP with stent placement to the bile duct today Patient in good spirits, comfortable states that he feels fine overall No abdominal pain, nausea vomiting, fevers or chills No chest pain, shortness of breath, palpitations No other symptoms Review of Systems Review of Systems: All systems reviewed & are unremarkable except as noted in Subjective Physical Exam Physical Exam: General- oriented x 3, not in distress, speaks in sentences with no effort or accessory muscle use Eyes- anicteric Neck- no JVD Lungs- clear breath sounds bilaterally Heart- normal rate, regular rhythm; no murmurs Abdomen- normal bowel sounds, nondistended, soft, nontender Extremities- no pretibial edema, no calf tenderness Neuro- alert, oriented x 3; no gross focal neurologic deficits Skin- warm & dry Results & Data Results & Data ([facility]) Vital Signs (Past 12 Hours) Vital Signs Temp Pulse Pulse Pulse Resp BP BP 02/14/20 19:30 36.8 C 68 18 142/67 H 02/14/20 19:19 62 02/14/20 17:18 36.7 C 65 18 144/65 H 02/14/20 17:15 37.2 C 63 18 142/66 H 02/14/20 17:10 66 23 137/70 02/14/20 17:00 70 17 125/65 02/14/20 16:50 62 20 134/70 02/14/20 16:42 36.3 C L 69 21 112/75 02/14/20 14:17 36.8 C 64 19 142/79 H 02/14/20 11:30 36.8 C 62 20 131/71 Pulse Ox 02/14/20 19:30 95 02/14/20 19:19 02/14/20 17:18 95 02/14/20 17:15 95 02/14/20 17:10 96 02/14/20 17:00 96 02/14/20 16:50 99 02/14/20 16:42 100 02/14/20 14:17 96 02/14/20 11:30 94 Laboratory Results Laboratory Results - last 24 hr 02/14/20 02/15/20 02/15/20 05:32 07:55 07:55 PT 11.2 INR 1.1 APTT 27.2 PTT Ratio 1.0 Sodium 142 Potassium 4.2 D Chloride 112 H Carbon Dioxide 24 Anion Gap 7.0 BUN 17 Creatinine 1.03 Est Cr Clr Drug Dosing 53.5 Est GFR ( Amer) 78.0 Est GFR (Non-Af Amer) 67.3 BUN/Creatinine Ratio 16.2 Glucose 92 Calcium 8.1 L Magnesium 2.0 Total Bilirubin 1.5 H Direct Bilirubin 1.1 H AST 154 H ALT 260 H Alkaline Phosphatase 251 H Total Protein 5.3 L Albumin 2.1 L
[2020-02-14] MEDS ORDERED: POTASSIUM CHLORIDE 20 MEQ TABCR PO STA (22:35)
[2020-02-14] MEDS ORDERED: SODIUM CHLORIDE 0.9% 500 ML IV ONE (22:36)
[2020-02-14] MEDS ORDERED: MAGNESIUM SULFATE / D5W 1 GM/100 ML BAG IV ONE (22:45)
--- NOTE | 2020-02-14 23:18 | Communication Note ---
Date of Service: February 14, 2020 Notified by RN of A. fib on the monitor, cardiac rate 80s. Patient sleeping at time of event. AP New onset A. fib (No prior episodes as per patient account.) TTE, Cardiology consult Will relay to AM provider.
[2020-02-15] MEDS: PIPERACILLIN/TAZOBACTAM 3.375 GM in DEXTROSE 5% 100 ML IV SCH ×3 (04:35→19:37)
[2020-02-15 08:29] LABS: INR 1.1 (0.9-1.1); Partial Thromboplastin Time 27.2 Seconds (21.0-31.0); Prothrombin Time 11.2 Seconds (9.0-12.0)
[2020-02-15] MEDS: TAMSULOSIN HCL 0.4 MG CAP PO SCH (08:39)
[2020-02-15] MEDS: PANTOprazole 40 MG TAB PO SCH (08:39)
[2020-02-15] MEDS: ASPIRIN 81 MG ECTAB PO SCH (08:39)
[2020-02-15] MEDS: METOPROLOL TARTRATE 25 MG TAB PO SCH ×2 (08:39→20:24)
[2020-02-15 08:48] LABS: Albumin Level 2.1 gm/dl (3.4-5.0); BUN Creatinine Ratio 16.2 (10-20); Bilirubin Direct 1.1 mg/dl (0-0.2); Bilirubin,Total 1.5 mg/dl (0.2-1); Calcium 8.1 mg/dl (8.5-10.1); Creatinine Clr Calc Pharmacy 53.5 ml/min; Est GFR (Non-African American) 67.3; Potassium 4.2 mmol/L (3.5-5.1); Total Protein 5.3 gm/dl (6.4-8.2)
--- NOTE | 2020-02-15 09:11 | Gastroenterology Progress Note ---
Date of Service February 15, 2020 Assessment & Plan (1) Painless jaundice: S/P EGD/EUS/ERCP notable for diffuse wall thickening of the common bile duct in addition to lymphadenopathy s/p biliary sphincterotomy & stent placement. Await cytology and biopsy from lymph nodes Continue antibiotic coverage for total of 5 days We will have patient undergo outpatient testing with an MEHRDAD in addition to IgG subsets to screen for evidence of IgG4 elevation Can advance diet as tolerated GI to sign off. Thank you for allowing us to participate in the care of this patient. Please call with any acute changes, questions or concerns. Please see addendum below with additional recommendation from my supervising physician. Admission and Anticipated Discharge Date Admission Date: February 12, 2020 Supervising Physician Co-Signing Physician Notes I have seen and examined the patient and discussed the management with PERLA Tsai. No acute complaint PE - well nourished male in nad, HEENT - perrla, CV- rrr no mrg, Pulm - ctab, Abd - soft Labs reviewed Agree with further plan of care as per Kristen's assessment. Subjective Clinically feeling well No abd pain No nausea/vomiting Wants to go home Awaiting biopsies Review of Systems Constitutional: no fever, no chills and no fatigue Respiratory: no cough and no dyspnea Cardiovascular: no chest pain and no dyspnea on exertion Gastrointestinal: no abdominal pain, no nausea, no hematemesis, no diarrhe a/loose stools, no blood in stools and no melena Physical Exam Constitutional: well developed and well nourished; no acute distress Neck: trachea midline Respiratory: normal respiratory effort Cardiovascular: Rate/Rhythm: regular rate Gastrointestinal (Abdomen): Percussion/Palpation: abdomen soft; abdomen nontender, no guarding, abdomen not rigid, no abdominal mass and no ascites Skin: no rashes, warm and dry Results & Data ([facility]) Vital Signs (Past 12 Hours) Vital Signs Temp Pulse Pulse Resp BP Pulse Ox 02/15/20 07:18 36.3 C L 51 L 18 137/68 94 02/15/20 02:58 36.6 C 52 L 16 135/68 95 02/15/20 00:35 77 02/14/20 22:29 36.9 C 81 16 97/58 L 92
--- NOTE | 2020-02-15 19:58 | Hospitalist Progress Note ---
Date of Service February 15, 2020 Assessment & Plan (1) Biliary obstruction: Biliary obstruction Status post ERCP, with stent placement to the common bile duct --Status post ERCP with stent placement in the common bile duct, biopsy from common bile duct also obtained, pending Lymph node biopsy also obtained, pending --Bilirubin and LFTs improving --Diet advanced to soft, tolerating well --Blood cultures negative so far Continue Zosyn for total of 5 days per GI --Follow-up biopsies and discuss next steps with GI service Abdominal and pelvic lymphadenopathy --Possible lymphoma per CT report Peripheral smear: Mild normochromic, normocytic anemia which is chronic, #thought is normal, features of lymphoproliferative disorder NOT seen on the smear --Follow-up lymph node biopsy obtained during ERCP Prostatomegaly --No urinary symptoms Has history of BPH, elevated PSA, chronic prostatitis PSA level 3.[address] Shi consulted: No acute evaluation, continue tamsulosin Episode of atrial fibrillation --Noted in the evening of 02/14/2020 Patient asymptomatic during episode --Currently back to sinus rhythm --Follows with exterior designer in [place] (patient can not recall the name) for CAD and chronic diastolic heart failure already on metoprolol and aspirin --Echocardiogram ordered Cardiology service consulted Chronic diastolic heart failure (EF 55 to 60%, TTE 2018 ) --Euvolemic hx CAD, valvular heart disease (Moderate MR, mild AR/TR TTE 2018) --No cardiac symptoms hypertension --Stable overall history DVT as per records --Hold anticoagulation in light of ERCP consider starting if with prolonged hospital stay Hyperglycemia rule out DM -- A1c 5.2 chronic anemia, hemoglobin at baseline past tobacco abuse DVT prophylaxis: Hold Lovenox in light of ERCP with biopsy consider starting if with prolonged hospital stay Full code Disposition anticipate discharge to home when medically stable Follow-up with PCP, GI service Care discussed with patient and his daughter over the phone in detail and at length All questions were answered They are understanding, agreeable, comfortable with plan of care Admission and Anticipated Discharge Date Admission Date: February 12, 2020 Subjective Follow-up for biliary obstruction, etc. Overnight noted to have atrial fibrillation by telemetry Telemetry reviewed, patient had atrial fibrillation episode from approximately 9 PM to 11 PM Seen resting in bed, comfortable, in good spirits Denies having any chest pain, palpitations, dizziness, shortness of breath overnight Also does not have the symptoms prior to hospitalization Denies abdominal pain, nausea vomiting, fevers or chills Tolerating diet well No other symptoms Review of Systems Review of Systems: All systems reviewed & are unremarkable except as noted in Subjective Physical Exam Physical Exam: General- oriented x 3, not in distress, speaks in sentences with no effort or accessory muscle use Eyes- anicteric Neck- no JVD Lungs- clear breath sounds bilaterally Heart- normal rate, regular rhythm; no murmurs Abdomen- normal bowel sounds, nondistended, soft, nontender Extremities- no pretibial edema, no calf tenderness Neuro- alert, oriented x 3; no gross focal neurologic deficits Skin- warm & dry Results & Data Results & Data ([facility]) Vital Signs (Past 12 Hours) Vital Signs Temp Pulse Pulse Resp BP BP Pulse Ox 02/15/20 19:00 36.9 C 58 L 20 151/56 H 94 02/15/20 15:47 36.4 C L 65 18 129/68 96 02/15/20 14:20 71 02/15/20 11:29 36.7 C 54 L 18 156/71 H 94 Laboratory Results Laboratory Results - last 24 hr 02/14/20 02/15/20 02/15/20 05:32 07:55 07:55 PT 11.2 INR 1.1 APTT 27.2 PTT Ratio 1.0 Sodium 142 Potassium 4.2 D Chloride 112 H Carbon Dioxide 24 Anion Gap 7.0 BUN 17 Creatinine 1.03 Est Cr Clr Drug Dosing 53.5 Est GFR ( Amer) 78.0 Est GFR (Non-Af Amer) 67.3 BUN/Creatinine Ratio 16.2 Glucose 92 Calcium 8.1 L Magnesium 2.0 Total Bilirubin 1.5 H Direct Bilirubin 1.1 H AST 154 H ALT 260 H Alkaline Phosphatase 251 H Total Protein 5.3 L Albumin 2.1 L
[2020-02-16] MEDS: PIPERACILLIN/TAZOBACTAM 3.375 GM in DEXTROSE 5% 100 ML IV SCH ×2 (03:15→12:53)
[2020-02-16 07:29] LABS: BUN Creatinine Ratio 13.1 (10-20); Calcium 8.3 mg/dl (8.5-10.1); Est GFR (African American) 75.4
[2020-02-16] MEDS: METOPROLOL TARTRATE 25 MG TAB PO SCH (08:38)
[2020-02-16] MEDS: TAMSULOSIN HCL 0.4 MG CAP PO SCH (08:39)
[2020-02-16] MEDS: PANTOprazole 40 MG TAB PO SCH (08:39)
[2020-02-16] MEDS: ASPIRIN 81 MG ECTAB PO SCH (08:39)
--- NOTE | 2020-02-16 10:34 | Cardiology Consultation ---
Date of Consultation February 16, 2020 Assessment & Plan (1) Paroxysmal atrial fibrillation: (2) Coronary artery disease: (3) Mitral valve prolapse: (4) Pericardial effusion without cardiac tamponade: 84-year-old patient admitted with acute biliary obstruction, dehydration, and painless jaundice. ERCP performed without complication. Patient received IV fluid with subsequent improvement of volume status. Transient, 90-minute episode of atrial fibrillation recorded 02/14/2020 without recurrence. A. fib occurring in the setting of possible reversible causes including acute biliary obstruction, dehydration, and postprocedural status. Recommend titration of metoprolol to 12.5 mg twice daily. Continue low-dose aspirin. Recommend 14-day ZIO monitor as outpatient. In regard to his trivial circumferential pericardial effusion, recommend repeat resting 2D transthoracic echocardiogram in 2 to 4 weeks. I offered patient follow-up with the [facility] [place] in [place], however, he [facility] Most recent cardiology visit with Dr. Buenrostro. Thank you for allowing me to participate in the care of your patient. History of Present Illness Reason for Consultation: Paroxysmal atrial fibrillation Requesting Physician: Dr. Paul Attending Physician: Elizabeth Vargas MD History of Present Illness 84-year-old patient mated through the emergency department with abdominal discomfort. Diagnosed with biliary obstruction and painless jaundice. Hypotensive on admission due to poor oral intake, volume depletion, and dehydration. Blood pressure improved with IV hydration in the ER. ERCP performed 02/14/2020 without complication. Abdominal discomfort has improved. Review of telemetry reveals a 90-minute episode of atrial fibrillation with controlled ventricular response in the evening 02/14/2020. No symptoms reported. Patient denies palpitations, chest discomfort, unusual shortness of breath. Abdominal discomfort reported on admission has resolved. Denies orthopnea, PND, lower extreme edema, or claudication. Typically follows with harbor patrol police at [facility] Porter Arellano. Cardiovascular history of CAD, chronic class II angina, myocardial infarction, left lower extremity DVT, mixed valvular heart disease including aortic, mitral, and tricuspid insufficiency. No documented history of atrial fibrillation. Telemetry reveals sinus rhythm over the past 36 hours. Patient tolerating diet and requesting discharge if possible. Echocardiogram performed today demonstrates preserved LV systolic function, grade 1 diastolic dysfunction, mild aortic regurgitation, mitral valve prolapse with mild mitral regurgitation, mild tricuspid regurgitation and a trivial circumferential pericardial effusion. Allergies Allergy/AdvReac Type Severity Reaction Status Date / Time No Known Allergies Allergy Unverified 02/12/20 20:22 Home Medications Home Medications Medication Instructions Recorded Confirmed Type aspirin [Aspir-81] 81 mg PO DAILY 02/12/20 02/12/20 History metoprolol tartrate 12.5 mg PO DAILY 02/12/20 02/12/20 History omeprazole 40 mg PO DAILY 02/12/20 02/12/20 History simvastatin 20 mg PO DAILY 02/12/20 02/12/20 History tamsulosin 0.4 mg PO DAILY 02/12/20 02/12/20 History Patient History Medical History BPH (benign prostatic hypertrophy) Elevated PSA Social History Smoking Status: Former smoker Tobacco Type: Cigarettes Hx Alcohol Use: No Hx Substance Use: No Communication Ability: Effective Beliefs That Will Affect Care: None Current Living Situation: Spouse Other Information That Helps Us Care for You: No Feels Safe at Home: Yes Assistive Devices: None Review of Systems Review of Systems: All systems reviewed & are unremarkable except as noted in HPI & below Physical Exam Constitutional: well developed and well nourished; no acute distress and not ill appearing Respiratory: normal respiratory effort, lungs clear to auscultation Auscultation: no diminished lung sounds, no crackles, no rales, no rhonchi and no wheezes Cardiovascular: Rate/Rhythm: regular rate and regular rhythm Heart Sounds: normal S1, normal S2 and + murmur (1/6 midsystolic murmur heard best at the left ventricular apex.) Palpation: normal PMI Vessels: radial pulses present; no JVD and no carotid bruit Extremities: no edema Gastrointestinal (Abdomen): Inspection/Auscultation: abdomen normal to inspection and normal bowel sounds; abdomen not distended Percussion/Palpation: abdomen soft; abdomen nontender, no guarding and abdomen not rigid Skin: no rashes, warm and dry Neurologic: moves all extremities; no focal motor deficits Speech / Cognition: normal speech Motor/Sensory: no tremor Psychiatric: A+Ox3, euthymic affect Results & Data ([facility]) Vital Signs (Past 12 Hours) Vital Signs Temp Pulse Pulse Pulse Resp BP BP 02/16/20 08:39 62 02/16/20 07:34 57 L 02/16/20 07:27 36.6 C 60 18 158/77 H 02/16/20 04:27 55 L 02/16/20 03:12 37.2 C 66 18 112/66 02/15/20 22:51 37.1 C 59 L 20 118/62 Pulse Ox 02/16/20 08:39 02/16/20 07:34 02/16/20 07:27 95 02/16/20 04:27 02/16/20 03:12 95 02/15/20 22:51 94
--- NOTE | 2020-02-16 17:33 | Hospitalist Progress Note ---
Date of Service February 16, 2020 Assessment & Plan (1) Biliary obstruction: presented with Jaundice with no abdominal pain or discomfort --Status post ERCP with stent placement in the common bile duct, biopsy from common bile duct : benign Lymph node biopsy : pathology : benign --Bilirubin and LFTs improving post ERCP --Diet advanced , tolerating well Abdominal and pelvic lymphadenopathy -- Peripheral smear: Mild normochromic, normocytic anemia which is chronic, #thought is normal, features of lymphoproliferative disorder NOT seen on the smear -- lymph node biopsy obtained during ERCP-benign BPH --No urinary symptoms Has history of BPH, elevated PSA, chronic prostatitis PSA level 3.[address] Shi consulted: No acute evaluation, continue tamsulosin paroxysmal Afib --Noted in the evening of 02/14/2020 Patient asymptomatic during episode --Currently back to sinus rhythm --Follows with orthopedic tech in [place] (Dr Buenrostro) for CAD and chronic diastolic heart failure already on metoprolol and aspirin --Echocardiogram :EF 60-65% , grade 1 diastolic dysfunction , trivial circumferential pericardial effusion Cardiology service consult apprecied increased lopressor to 12.5 mg BID , repeat ECHO 2-3 months to assess small pericardial effusion noted in ECHO cont on Aspirin 81 mg daily pt will continue to follow up with [facility] cardiology in [place] Chronic diastolic heart failure (EF 55 to 60%, TTE 2018 ) --Euvolemic hx CAD, valvular heart disease (Moderate MR, mild AR/TR TTE 2018) --No cardiac symptoms hypertension --Stable overall Hyperglycemia rule out DM -- A1c 5.2 chronic anemia, hemoglobin at baseline past tobacco abuse Full code Disposition stable to be discharged home today Admission and Anticipated Discharge Date Admission Date: February 12, 2020 Subjective no complain of abdominal pain no nausea or vomiting , tolerating diet well eager to be discharged home Review of Systems Review of Systems: All systems reviewed & are unremarkable except as noted in HPI & below Physical Exam Physical Exam: General- oriented x 3, not in distress, speaks in sentences with no effort or accessory muscle use Eyes- anicteric Neck- no JVD Lungs- clear breath sounds bilaterally Heart- normal rate, regular rhythm; no murmurs Abdomen- normal bowel sounds, nondistended, soft, nontender Extremities- no pretibial edema, no calf tenderness Neuro- alert, oriented x 3; no gross focal neurologic deficits Skin- warm & dry Results & Data Results & Data ([facility]) Vital Signs (Past 12 Hours) Vital Signs Temp Pulse Pulse Pulse Resp BP BP 02/16/20 16:02 36.6 C 53 L 60 20 142/69 H 112/66 02/16/20 11:47 36.6 C 53 L 20 142/69 H 02/16/20 08:39 62 02/16/20 07:34 57 L 02/16/20 07:27 36.6 C 60 18 158/77 H Pulse Ox 02/16/20 16:02 96 02/16/20 11:47 96 02/16/20 08:39 02/16/20 07:34 02/16/20 07:27 95
--- NOTE | 2020-02-16 17:35 | Discharge Summary ---
Date of Service February 16, 2020 Admission HPI Per Admitting Provider History obtained from patient and records. Medical history significant for chronic diastolic heart failure (EF 55 to 60%, TTE 2019 ), hx CAD, valvular heart disease (Moderate MR, mild AR/TR TTE 2019), hypertension, hyperlipidemia, history DVT as per records, BPH, PUD, chronic anemia (baseline hemoglobin 13), past tobacco abuse. Last confinement August 2017 for leukopenia, suspected viral syndrome. Patient had routine outpatient blood work at PCP's office 3 weeks ago. Abnormal LFTs noted. AST 118, ALT 209. Alk phos within normal limits. No abdominal pain complaints. No inordinate alcohol intake as per patient account. Voluntary weight loss of about 10 pounds in the last few months as per patient. Outpatient ultrasound of the abdomen done last week for transaminitis as per records. Gallbladder noted to be contracted with diffusely thickened gallbladder wall. 3 mm gallstone versus polyp and sludge. No Sanchez sign. Diffuse thickening of the gallbladder wall could be secondary to liver disease versus chronic cholecystitis. Dilated CBD filled with debris measuring up to 9 mm in diameter. Distal obstruction not excluded. Consider ERCP/MRCP. Diffuse increased echogenicity of liver nonspecific findi ng. Fatty infiltration is a consideration among other diffuse hepatocellular processes. Outpatient [facility] GI consultation scheduled for next month. 2 days ago, patient noted achy left-sided abdominal pain with transient hematuria. Stomach feeling funny somewhat worse on moving around. No fever, no chills. No chest pain, no S OB. Patient lightheaded from poor appetite. Patient brought by family to the emergency room. 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 Principal Diagnosis PAINLESS JAUNDICE Discharge Exam Constitutional WD/WN, vitals as above well developed and well nourished; no acute distress and not ill appearing Eyes EOM intact bilaterally ENMT Mouth: no dentition abnormality Mallampati Class: II Neck normal visual inspection and trachea midline Respiratory normal respiratory effort, lungs clear to auscultation normal respiratory effort and able to speak in complete sentences; no respiratory distress and no labored breathing Auscultation: lungs clear to auscultation bilaterally; no diminished lung sounds, no crackles, no rales, no rhonchi and no wheezes Cardiovascular RRR, no murmur, no edema Rate/Rhythm: regular rate and regular rhythm Heart Sounds: normal S1, normal S2 and + murmur (1/6 midsystolic murmur heard best at the left ventricular apex.) Palpation: normal PMI Vessels: radial pulses present; no JVD and no carotid bruit Extremities: no pedal edema and no edema Gastrointestinal (Abdomen) Inspection/Auscultation: abdomen normal to inspection and normal bowel sounds; abdomen not distended Percussion/Palpation: abdomen soft; abdomen nontender, no guarding, abdomen not rigid, no hepatosplenomegaly, no abdominal mass and no ascites Musculoskeletal Head/Neck/Chest: normocephalic and head atraumatic Extremities: extremities normal to inspection; no cyanosis Gait: normal gait Skin no rashes, warm and dry Neurologic moves all extremities and awake; no focal motor deficits Speech / Cognition: normal speech Motor/Sensory: no tremor Psychiatric A+Ox3, euthymic affect Orientation: alert Genitourinary no CVA tenderness Discharge Data Allergies Allergy/AdvReac Type Severity Reaction Status Date / Time No Known Allergies Allergy Unverified 02/12/20 20:22 Consultations 02/12/20 21:05 ED Decision to Admit Stat 02/12/20 21:09 Consult Gastroenterology Stat 02/13/20 20:06 Consult Urology Routine 02/15/20 18:10 Consult Cardiology Routine Procedures Performed Operation Date: 02/14/20 07:00 Actual Procedures p Endoscopic Retrograde Cholangiopancreatogram - Ky Gonzales s Upper Endoscopic Ultrasonography, - Ky atkins Upper Gastrointestinal Endoscopy - Ky Gonzales Ordered Studies 02/12/20 19:09 CT abd pelvis IV con only Stat 02/13/20 00:13 MR MRCP Routine 02/14/20 13:00 FL ERCP biliary ductal Routine 02/14/20 14:49 US upper EUS PACS images Routine Hospital Course (1) Biliary obstruction: presented with Jaundice with no abdominal pain or discomfort --Status post ERCP with stent placement in the common bile duct, biopsy from common bile duct : benign Lymph node biopsy : pathology : benign --Bilirubin and LFTs improving post ERCP --Diet advanced , tolerating well Abdominal and pelvic lymphadenopathy -- Peripheral smear: Mild normochromic, normocytic anemia which is chronic, #thought is normal, features of lymphoproliferative disorder NOT seen on the smear -- lymph node biopsy obtained during ERCP-benign BPH --No urinary symptoms Has history of BPH, elevated PSA, chronic prostatitis PSA level 3.[address] Shi consulted: No acute evaluation, continue tamsulosin paroxysmal Afib --Noted in the evening of 02/14/2020 Patient asymptomatic during episode --Currently back to sinus rhythm --Follows with neckties painter in [place] (Dr Buenrostro) for CAD and chronic diastolic heart failure already on metoprolol and aspirin --Echocardiogram :EF 60-65% , grade 1 diastolic dysfunction , trivial circumferential pericardial effusion Cardiology service consult apprecied increased lopressor to 12.5 mg BID , repeat ECHO 2-3 months to assess small pericardial effusion noted in ECHO cont on Aspirin 81 mg daily pt will continue to follow up with [facility] cardiology in [place] Chronic diastolic heart failure (EF 55 to 60%, TTE 2018 ) --Euvolemic hx CAD, valvular heart disease (Moderate MR, mild AR/TR TTE 2018) --No cardiac symptoms hypertension --Stable overall Hyperglycemia rule out DM -- A1c 5.2 chronic anemia, hemoglobin at baseline past tobacco abuse Full code Disposition stable to be discharged home today Total Time Total Time Spent Total Time Spent (In Minutes): 35 mins Total Time Includes: Examination of the Patient, Discharge Planning and Medication Reconciliation Discharge Plan Discharge Items Patient Disposition: Home - Self-Care Reason For Visit: TRANSIENT HYPOTENSION; BILIARY OBSTRUCTION Discharge Diagnosis: PAINLESS JAUNDICE Activity: Resume your previous activity Non-emergency contact: Primary Care Provider Call non-emergency contact if: you have any medication questions Follow-up/Referrals: Ky Gonzales [Physician] - Danny Solitario MD [Primary Care Provider] - (Date & Time 02/21/2020 11:20 AM Provider Zulay Capps MD Department Internal Medicine [facility] ) Diet: Low Fat Ambulatory Orders: Hepatic Function (Liver) Panel (Routine) Timeframe: 1 Week Location: Determined by Patient Ordered By: Elizabeth Dudley Attending Provider Instructions: Follow up with GI in 2-4 weeks DO NOT TAKE SIMVASTATIN FOR NEXT 1 WEEK /TILL YOUR LIVER FUNCTION LEVEL NORMALIZES LAB : LIVER FUNCTION TEST IN 1 WEEK metoprolol dose increased to 12.5 mg twice daily. Continue low-dose aspirin 81 mg daily 14-day ZIO monitor cardio motior as outpatient. repeat 2D transthoracic echocardiogram in 2 to 4 weeks-assessment for mild fluid collection around heart ( pericardial effusion ) Follow up with neckties painter at [facility] Dr. Buenrostro. Pending Studies at Discharge: No Stand-Alone Forms: [facility], Smoking Cessation Medications and DC Order Prescriptions: Continued omeprazole 40 mg capsule,delayed release(DR/EC) 40 mg PO DAILY RF: 0 tamsulosin 0.4 mg capsule 0.4 mg PO DAILY RF: 0 aspirin 81 mg Tablet,Delayed Release (Dr/Ec) 81 mg PO DAILY RF: 0 Changed metoprolol tartrate 25 mg tablet 12.5 mg PO BID 30 Days Qty: 30 RF: 0 Discontinued simvastatin 20 mg tablet 20 mg PO DAILY RF: 0 Discharge Orders: Discharge Order (Routine); Ordered 02/16/20 Ordered By: Elizabeth Vargas Admission Data Admit Date/Time: 02/12/20 22:20 Attending Provider: Elizabeth Vargas Admit Provider: Dedrick Razo Primary Care Provider: Danny Solitario Other Providers: Dedrick Razo ; Yuri Carmichael ; Johann Shi ; Ben Blair Other Interventions: Discharge Summary Assessment (RN) Last Done: 02/16/20 16:02
== END 2020-02-16 18:10 | disposition home or self-care (01) | DRG 445 ==
LOC: ED 18:28 → 2N 22:20 → SUATTDRO 22:20 → 2N 23:27

== ENCOUNTER 2021-01-20 14:36 | Inpatient (IN) ==
[2021-01-20] MEDS ORDERED: SODIUM CHLORIDE 0.9% 1000ML 1,000 ML IV STA (14:45)
[2021-01-20] MEDS ORDERED: ACETAMINOPHEN 500 MG TAB PO STA (14:45)
--- NOTE | 2021-01-20 14:51 | Emergency Department Note ---
Impression & Plan Weakness, Acute confusion, Fever ED Provider Note Provider: Devon Bermudez MD DATE OF SERVICE: 01/17/2021 CHIEF COMPLAINT: Confusion, weakness HISTORY OF PRESENT ILLNESS: Patient is a 85-year-old gentleman history of CAD, paroxysmal atrial fibrillation, and recent diagnosis of cancer approximately 3 days status post first infusion of chemotherapy presenting here today via ambulance from home with report of weakness and confusion starting this morning. EMS reports that the patient's been at home with his and acutely this morning evidently has been more confused and was too weak to walk to the bathroom and sat down on the ground. EMS arrived and the patient was brought here for further evaluation. Patient had a port placed for chemotherapy just over 10 days ago here. Patient is febrile but has not reportedly had Tylenol today. Patient denies any pain at this time. No trauma is reported. Patient denies any nausea. reports that the patient's had poor p.o. intake for the last day or 2. Patient denies shortness of breath, abdominal pain, or chest pain at this time. Reports of some diarrhea today. Patient however believes it is July and is unable to give me a response for what year it is. Pleasant and not in obvious distress but question how reliable a historian he is. REVIEW OF SYSTEMS: A total of 10 review of systems was obtained and negative except as stated above in the HPI. PAST MEDICAL HISTORY: As noted above MEDICATIONS: Reviewed home medications with the patient clues prednisone SOCIAL HISTORY: Lives at home with PHYSICAL EXAM: GENERAL: alert and oriented to person in no acute distress on stretcher but not oriented to time Head: normocephalic and atraumatic EYES: No injection, discharge or icterus. PERRL NECK: Trachea midline. Supple. ENT: Mucous membranes pink and moist. LUNGS: Airway patent. No retractions. Breath sounds clear with good air entry bilaterally. HEART: Regular mildly tachycardic rate and rhythm. Right upper chest wall port with healing insertion wound over top without significant erythema or discharge noted. ABDOMEN: Soft and non-tender, without guarding or rebound. SKIN: Acyanotic, warm, dry, without rashes EXTREMITIES: Without swelling, tenderness or deformity NEUROLOGICAL: No focal deficits moving all extremities to commands. No aphasia. No facial droop or slurred speech. EK beats were in sinus tachycardia. No PVC. No acute ST segment elevation noted with a left axis. Nonspecific anterior V1 V2 T wave changes are noted. CONTINUOUS CARDIAC MONITORING: was ordered and showed a heart rate of 80s to 120s bpm in normal sinus rhythm to sinus tachycardia Patient's laboratory studies and imaging reviewed. Differential includes Infection, dehydration, metabolic abnormality, hy po/hyperglycemia, electrolyte disturbance, anemia, hypoxia, cardiac sources, intracerebral event, toxicologic, neurologic, as well as other pathologies. IMPRESSION/MEDICAL DECISION MAKING: Patient presents with onset this morning of some confusion weakness. Noted to be febrile upon arrival here. Recently had chemotherapy and port insertion. Patient not the best historian here. Patient's does provide additional history and again denies any trauma. Decreased intake for several days and some confusion today with weakness. Patient's is agreeable with the likely need for admission on our initial discussion given his complaints pending testing here and is concerned that he is dehydrated. Patient does not appear meningitic at this time. No trauma reported. No trauma evident on the patient on evaluation. Patient without focal neurological deficit given the confusion a CT of the head will be completed. Given some IV fluid given Tylenol here with a fever. Testing indicates the patient was positive for Covid on the third of this month, repeat test was sent here today. X-ray and basic labs were obtained. Benign abdomen and lower suspicion for acute intra-abdominal pa thology with this. Isolation precautions were instituted given his recent COVID + test however Covid test today came back negative. Chest x-ray per my review the radiologist without significant cardiomegaly or evidence of pneumothorax. No pleural effusion noted. Question of left basilar atelectasis although cannot exclude infectious process here. Significant leukocytosis of 21 is noted today with some slight anemia of 12. Creatinine appears stable with some mild hypokalemia but a normal sodium level. Troponin is undetectable. CRP somewhat elevated 2.9. No evidence of acute hepatitis or pancreatitis based on lab studies. Again benign abdomen. Not significant hypoxic although question of the pneumonia on the x-ray. Covid test again was completed and may have some contribution although the significant leukocytosis is concerning for bacterial infection. Blood cultures were obtained and broad- spectrum cefepime was administered. 2 L of fluid for more than 30 mL/kg of IV fluid were ordered. UA without evidence of infection. CT the head completed per radiology with evidence of acute intracranial abnormality. Given his confusion and leukocytosis with fever and decreased intake, will asked the hospitalist to evaluate for further care here at the hospital. Again treated e mpirically with broad-spectrum cefepime question pneumonia as the source. DIAGNOSIS: Confusion, weakness, fever, possible pneumonia DISPOSITION: Hospitalist will evaluate Patient was agreeable with this plan. Past Med/Surg History Medical History BPH (benign prostatic hypertrophy) CAD (coronary artery disease) Follows with Dr. Buenrostro in [place] Per 2014 cath- mild to moderate 2 vessel CAD (per cardio note= 40-50% LAD stenosis, circumflex 40% stenosis, RCA 30% stenosis, LVEF 45%) Chronic diastolic heart failure GERD (gastroesophageal reflux disease) Hearing deficit [place] History of DVT (deep vein thrombosis) 2015-- unk etiology - per , no blood thinners given at time of dvt History of myocardial infarction 2013 per records HTN (hypertension) Hyperlipemia Osteoarthritis Paroxysmal A-fib while hospitalized 02/2020 [facility] Per 02/16/20 cardio consultation "A. 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 History of tooth extraction Family History Other No family history of adverse response to anesthesia Social History Smoking Status: Unknown if ever smoked Tobacco Type: Smokeless Tobacco (Dip or Chew) Second Hand Exposure: No; Hx Alcohol Use: No Hx Substance Use: No Preferred Language: Slovak Communication Ability: Effective Bowling Ball Patcher Required: No Beliefs That Will Affect Care: None Current Living Situation: Spouse Feels Safe at Home: Yes Assistive Devices: Glasses and Hearing Aid - Bilateral Allergies Allergies Allergy/AdvReac Type Severity Reaction Status Date / Time No Known Allergies Allergy Unverified 01/20/21 15:39 Home Meds Home Medications Medication Instructions Recorded Confirmed aspirin 81 mg tablet,delayed 81 mg PO QAM 02/12/20 01/20/21 release tamsulosin 0.4 mg capsule 0.4 mg PO QAM 02/12/20 01/20/21 finasteride 5 mg tablet 5 mg PO QAM 08/28/20 01/20/21 metoprolol tartrate 25 mg tablet 12.5 mg PO BID 01/20/21 01/20/21 ondansetron HCl 8 mg tablet 8 mg PO Q8 PRN 01/20/21 01/20/21 simvastatin 20 mg tablet 20 mg PO DAILY 01/20/21 01/20/21 Previous Rx's Medication Instructions Recorded omeprazole 40 mg capsule,delayed 40 mg PO QAM #90 cap 10/10/20 release Results & Data (ED) Vital Signs Vital Signs - 24 hr 01/20/21 14:42 01/20/21 14:45 01/20/21 15:00 Temperature 39.3 C H Temperature Source Oral Pulse Rate 100 H 112 H 104 H Pulse Rate from SpO2 Sensor 100 H Pulse Rhythm Regular Pulse Strength Normal Respiratory Rate 22 33 H 24 Respiratory Effort / Characteristics Non-Labored Respiratory Depth Normal Respiratory Pattern Regular Blood Pressure 146/43 H 146/43 H 133/51 L Blood Pressure Mean 77 77 78 Blood Pressure Position Sitting Pulse Oximetry 95 96 Oxygen Delivery Method Room Air Sepsis Recent Fever Within 48 Hours Yes Sepsis New/Unexplained Change in Mental Status Yes Sepsis Action Taken by Nursing Physician Notified 01/20/21 16:00 01/20/21 16:38 01/20/21 16:40 Temperature Temperature Source Pulse Rate 96 H 103 H 94 H Pulse Rate from SpO2 Sensor 96 H 95 H 95 H Pulse Rhythm Pulse Strength Respiratory Rate 22 23 13 Respiratory Effort / Characteristics Respiratory Depth Respiratory Pattern Blood Pressure 122/49 L Blood Pressure Mean 73 Blood Pressure Position Pulse Oximetry 94 93 93 Oxygen Delivery Method Sepsis Recent Fever Within 48 Hours Sepsis New/Unexplained Change in Mental Status Sepsis Action Taken by Nursing 01/20/21 16:50 01/20/21 17:00 01/20/21 17:10 Temperature Temperature Source Pulse Rate 90 93 H Pulse Rate from SpO2 Sensor 91 H 95 H 94 H Pulse Rhythm Pulse Strength Respiratory Rate 16 14 Respiratory Effort / Characteristics Respiratory Depth Respiratory Pattern Blood Pressure Blood Pressure Mean Blood Pressure Position Pulse Oximetry 94 93 93 Oxygen Delivery Method Sepsis Recent Fever Within 48 Hours Sepsis New/Unexplained Change in Mental Status Sepsis Action Taken by Nursing 01/20/21 17:20 01/20/21 17:30 01/20/21 18:00 Temperature Temperature Source Pulse Rate Pulse Rate from SpO2 Sensor 90 89 83 Pulse Rhythm Pulse Strength Respiratory Rate Respiratory Effort / Characteristics Respiratory Depth Respiratory Pattern Blood Pressure 91/64 L Blood Pressure Mean 73 Blood Pressure Position Pulse Oximetry 93 94 96 Oxygen Delivery Method Sepsis Recent Fever Within 48 Hours Sepsis New/Unexplained Change in Mental Status Sepsis Action Taken by Nursing 01/20/21 18:31 Temperature Temperature Source Pulse Rate 82 Pulse Rate from SpO2 Sensor 83 Pulse Rhythm Pulse Strength Respiratory Rate 21 Respiratory Effort / Characteristics Respiratory Depth Respiratory Pattern Blood Pressure 130/55 L Blood Pressure Mean 80 Blood Pressure Position Pulse Oximetry 95 Oxygen Delivery Method Sepsis Recent Fever Within 48 Hours Sepsis New/Unexplained Change in Mental Status Sepsis Action Taken by Nursing Laboratory Data Result diagrams: 01/20/21 15:10 01/20/21 15:10 Lab Results 01/20/21 01/20/21 01/20/21 Range/Units 15:10 15:10 15:10 WBC 21.21 H (4.8-10.8) K/uL RBC 4.27 L (4.7-6.1) M/uL Hgb 12.4 L (14.0-18.0) g/dL Hct 37.0 L (42-52) % MCV 86.7 (80-100) fL MCH 29.0 (25-34) pg MCHC 33.5 (32-36) g/dL RDW Std Deviation 50.2 H (36.4-46.3) fL RDW Coeff of Alan 15.8 H (11.5-14.5) % Plt Count 247 (130-400) K/uL MPV 8.7 (7.4-10.4) fL Immature Gran % (Auto) 2.5 % Neut % (Auto) 94.4 % Lymph % (Auto) 2.2 % [place] % (Auto) 0.8 % Eos % (Auto) 0.0 % Baso % (Auto) 0.1 % Neut # (Auto) 20.03 H (1.4-6.5) K/uL Lymph # (Auto) 0.46 L (1.2-3.4) K/uL [place] # (Auto) 0.16 (0.11-0.59) K/uL Eos # (Auto) 0.00 (0-0.5) K/uL Baso # (Auto) 0.03 (0-0.2) K/uL Immature Gran # (Auto) 0.53 H (0.00-0.02) K/uL Platelet Estimate Normal (Normal) PT 10.9 (9.0-12.0) Seconds INR 1.1 (0.9-1.1) Sodium 138 (136-145) mmol/L Potassium 3.4 L (3.5-5.1) mmol/L Chloride 108 H (98-107) mmol/L Carbon Dioxide 24 (21-32) mmol/L Anion Gap 6.0 (3-11) BUN 32 H (7-18) mg/dl Creatinine 1.03 (0.6-1.4) mg/dl Est Cr Clr Drug Dosing 49.0 ml/min Est GFR ( Amer) 77.5 ml/min Est GFR (Non-Af Amer) 66.9 ml/min BUN/Creatinine Ratio 31.1 H (10-20) Glucose 100 H (70-99) mg/dl Lactate (0.4-2.0) mmol/L Calcium 8.1 L (8.5-10.1) mg/dl Total Bilirubin 0.5 (0.2-1) mg/dl AST 18 (15-37) U/L ALT 14 (12-78) U/L Alkaline Phosphatase 92 (45-117) U/L Troponin I < 0.015 (0-0.045) ng/ml C-Reactive Protein 2.91 H (0-0.29) mg/dl Total Protein 5.9 L (6.4-8.2) gm/dl Albumin 2.7 L (3.4-5.0) gm/dl Globulin 3.2 (2.5-4.0) gm/dl Albumin/Globulin Ratio 0.8 L (0.9-2) Lipase 130 (73-393) U/L Procalcitonin (0-0.5) ng/ml Urine Color Urine Appearance (Clear) Urine pH (4.5-7.5) Ur Specific [place] (1.000-1.030) Urine Protein (Negative) Urine Glucose (UA) (Negative) Urine Ketones (Negative) Urine Blood (Negative) Urine Nitrite (Negative) Urine Bilirubin (Negative) Urine Urobilinogen (Negative) Ur Leukocyte Esterase (Negative) COVID-19 Eval Order SARS-CoV-2 (PCR) (Negative) 01/20/21 01/20/21 01/20/21 Range/Units 16:08 16:08 16:15 WBC (4.8-10.8) K/uL RBC (4.7-6.1) M/uL Hgb (14.0-18.0) g/dL Hct (42-52) % MCV (80-100) fL MCH (25-34) pg MCHC (32-36) g/dL RDW Std Deviation (36.4-46.3) fL RDW Coeff of Alan (11.5-14.5) % Plt Count (130-400) K/uL MPV (7.4-10.4) fL Immature Gran % (Auto) % Neut % (Auto) % Lymph % (Auto) % [place] % (Auto) % Eos % (Auto) % Baso % (Auto) % Neut # (Auto) (1.4-6.5) K/uL Lymph # (Auto) (1.2-3.4) K/uL [place] # (Auto) (0.11-0.59) K/uL Eos # (Auto) (0-0.5) K/uL Baso # (Auto) (0-0.2) K/uL Immature Gran # (Auto) (0.00-0.02) K/uL Platelet Estimate (Normal) PT (9.0-12.0) Seconds INR (0.9-1.1) Sodium (136-145) mmol/L Potassium (3.5-5.1) mmol/L Chloride (98-107) mmol/L Carbon Dioxide (21-32) mmol/L Anion Gap (3-11) BUN (7-18) mg/dl Creatinine (0.6-1.4) mg/dl Est Cr Clr Drug Dosing ml/min Est GFR ( Amer) ml/min Est GFR (Non-Af Amer) ml/min BUN/Creatinine Ratio (10-20) Glucose (70-99) mg/dl Lactate 1.3 (0.4-2.0) mmol/L Calcium (8.5-10.1) mg/dl Total Bilirubin (0.2-1) mg/dl AST (15-37) U/L ALT (12-78) U/L Alkaline Phosphatase (45-117) U/L Troponin I (0-0.045) ng/ml C-Reactive Protein (0-0.29) mg/dl Total Protein (6.4-8.2) gm/dl Albumin (3.4-5.0) gm/dl Globulin (2.5-4.0) gm/dl Albumin/Globulin Ratio (0.9-2) Lipase (73-393) U/L Procalcitonin 1.09 H (0-0.5) ng/ml Urine Color Yellow Urine Appearance Clear (Clear) Urine pH 5.0 (4.5-7.5) Ur Specific [place] 1.019 (1.000-1.030) Urine Protein Negative (Negative) Urine Glucose (UA) Negative (Negative) Urine Ketones Negative (Negative) Urine Blood Negative (Negative) Urine Nitrite Negative (Negative) Urine Bilirubin Negative (Negative) Urine Urobilinogen Negative (Negative) Ur Leukocyte Esterase Negative (Negative) COVID-19 Eval Order SARS-CoV-2 (PCR) (Negative) 01/20/21 01/20/21 Range/Units 16:15 16:15 WBC (4.8-10.8) K/uL RBC (4.7-6.1) M/uL Hgb (14.0-18.0) g/dL Hct (42-52) % MCV (80-100) fL MCH (25-34) pg MCHC (32-36) g/dL RDW Std Deviation (36.4-46.3) fL RDW Coeff of Alan (11.5-14.5) % Plt Count (130-400) K/uL MPV (7.4-10.4) fL Immature Gran % (Auto) % Neut % (Auto) % Lymph % (Auto) % [place] % (Auto) % Eos % (Auto) % Baso % (Auto) % Neut # (Auto) (1.4-6.5) K/uL Lymph # (Auto) (1.2-3.4) K/uL [place] # (Auto) (0.11-0.59) K/uL Eos # (Auto) (0-0.5) K/uL Baso # (Auto) (0-0.2) K/uL Immature Gran # (Auto) (0.00-0.02) K/uL Platelet Estimate (Normal) PT (9.0-12.0) Seconds INR (0.9-1.1) Sodium (136-145) mmol/L Potassium (3.5-5.1) mmol/L Chloride (98-107) mmol/L Carbon Dioxide (21-32) mmol/L Anion Gap (3-11) BUN (7-18) mg/dl Creatinine (0.6-1.4) mg/dl Est Cr Clr Drug Dosing ml/min Est GFR ( Amer) ml/min Est GFR (Non-Af Amer) ml/min BUN/Creatinine Ratio (10-20) Glucose (70-99) mg/dl Lactate (0.4-2.0) mmol/L Calcium (8.5-10.1) mg/dl Total Bilirubin (0.2-1) mg/dl AST (15-37) U/L ALT (12-78) U/L Alkaline Phosphatase (45-117) U/L Troponin I (0-0.045) ng/ml C-Reactive Protein (0-0.29) mg/dl Total Protein (6.4-8.2) gm/dl Albumin (3.4-5.0) gm/dl Globulin (2.5-4.0) gm/dl Albumin/Globulin Ratio (0.9-2) Lipase (73-393) U/L Procalcitonin (0-0.5) ng/ml Urine Color Urine Appearance (Clear) Urine pH (4.5-7.5) Ur Specific [place] (1.000-1.030) Urine Protein (Negative) Urine Glucose (UA) (Negative) Urine Ketones (Negative) Urine Blood (Negative) Urine Nitrite (Negative) Urine Bilirubin (Negative) Urine Urobilinogen (Negative) Ur Leukocyte Esterase (Negative) COVID-19 Eval Order Covid19 at [facility] SARS-CoV-2 (PCR) NEGATIVE (Negative) Administered Medications Discontinued Medications Acetaminophen (Acetaminophen 500 Mg Tab) 1,000 mg PO ONE STA Stop: 01/20/21 14:46 Last Admin: 01/20/21 15:42 Dose: 1,000 mg Documented by: [id number] Sodium Chloride (Nss 1000ml) 1,000 mls @ 999 mls/hr IV .Q1H1M STA Stop: 01/20/21 15:45 Last Infusion: 01/20/21 16:19 Dose: 0 mls/hr Documented by: [id number] Admin: 01/20/21 15:40 Dose: 999 mls/hr Documented by: [id number] Lactated Ringer's (Lr) 1,000 mls @ 999 mls/hr IV .Q1H1M ONE Stop: 01/20/21 16:46 Last Infusion: 01/20/21 17:34 Dose: 0 mls/hr Documented by: [id number] Admin: 01/20/21 16:06 Dose: 999 mls/hr Documented by: [id number] Cefepime HCl (Maxipime) 2,000 mg in 20 mls @ 5 mls/min IV NOW STA; Protocol Stop: 01/20/21 15:49 Last Admin: 01/20/21 16:06 Dose: 5 mls/min Documented by: [id number] Imaging Data Radiologist's Impression: Chest X-Ray 01/20/21 14:45 XR chest 1V portable CLINICAL HISTORY: Fever, weak COMPARISON STUDY: Chest radiograph January 09, 2021. FINDINGS: Patient is rotated. Right internal jugular [id number] is in place. Cardiomediastinal silhouette is stable. There is no pneumothorax or pleural effusion. There is no evidence for pulmonary edema. Calcified left lower lobe granuloma is present. Minimal left basilar opacity likely reflects atelectasis. IMPRESSION: Minimal left basilar opacity. This favors atelectasis although an infectious process could appear similar. ACT 112: Negative or not required by law. Electronically signed by: Torrey Hood M.D. 01/20/2021 3:[address] 01/20/21 14:45 CT OF THE HEAD WITHOUT CONTRAST CLINICAL HISTORY: weak, fever, confusion COMPARISON STUDY: No previous studies for comparison. CT DOSE: 591.77 mGycm TECHNIQUE: Helical axial images of the head were obtained without IV contrast. Automated exposure control was utilized for the study. A dose lowering technique was utilized adhering to the principles of ALARA. FINDINGS: No acute intracranial hemorrhage, midline shift or mass effect is present. White matter hypodensity suggests small vessel disease. The ventricular system is unremarkable. The basal cisterns are patent. No extra-axial collections are present. There are no findings to suggest acute dural sinus thrombosis or acute territorial infarct. No significant calvarial abnormalities are present. Visualized portions of the sinuses and mastoid air cells are clear. 2 cm lucent lesion within the occipital bone is likely benign. IMPRESSION: No acute intracranial findings. ACT 112: Negative or not required by law. Electronically signed by: Torrey Hood M.D. 01/20/2021 4:46 PM Discharge Plan Visit Data Chief Complaint: Confusion Stated Complaint: CONFUSION, AMS ED Provider: Devon Bermudez Discharge Problem: Weakness, Acute confusion, Fever Patient Disposition: Being Evaluated by Hospitalist Forms Stand Alone Forms: My [facility] Prescriptions Prescriptions: No Action omeprazole 40 mg capsule,delayed release(DR/EC) 40 mg PO QAM Qty: 90 RF: 3 tamsulosin 0.4 mg capsule 0.4 mg PO QAM RF: 0 aspirin 81 mg Tablet,Delayed Release (Dr/Ec) 81 mg PO QAM RF: 0 finasteride 5 mg Tablet 5 mg PO QAM RF: 0 ondansetron HCl 8 mg tablet 8 mg PO Q8 PRN (Reason: Nausea) RF: 0 simvastatin 20 mg tablet 20 mg PO DAILY RF: 0 metoprolol tartrate 25 mg tablet 12.5 mg PO BID RF: 0 Referrals Referrals: Danny Solitario MD [Primary Care Provider] - Discharge Problem: Fever Qualifiers: Fever type: unspecified Qualified Code(s): R50.9 - Fever, unspecified
--- NOTE | 2021-01-20 15:04 | XRay Report ---
XR chest 1V portable CLINICAL HISTORY: Fever, weak COMPARISON STUDY: Chest radiograph January 09, 2021. FINDINGS: Patient is rotated. Right internal jugular [id number] is in place. Cardiomediastinal erlin houette is stable. There is no pneumothorax or pleural effusion. There is no evidence for pulmonary e olivia. Calcified left lower lobe granuloma is present. Minimal left basilar opacity likely reflects at electasis. IMPRESSION: Minimal left basilar opacity. This favors atelectasis although an infectious process coul d appear similar. ACT 112: Negative or not required by law. Electronically signed by: Torrey Hood M.D. 01/20/2021 3:03 PM
[2021-01-20 15:37] LABS: Hemoglobin 12.4 g/dL (14.0-18.0); Mean Corpuscular Hgb Conc 33.5 g/dL (32-36); Mean Corpuscular Volume 86.7 fL (80-100); RDW Coefficient of Variation 15.8 % (11.5-14.5); RDW Standard Deviation 50.2 fL (36.4-46.3); Red Blood Count 4.27 M/uL (4.7-6.1); White Blood Count 21.21 K/uL (4.8-10.8)
[2021-01-20 15:38] LABS: INR 1.1 (0.9-1.1); Prothrombin Time 10.9 Seconds (9.0-12.0)
[2021-01-20] MEDS ORDERED: CEFEPIME 2,000 MG/20 ML VIAL IV STA (15:46)
[2021-01-20] MEDS ORDERED: LACTATED RINGER'S 1,000 ML IV ONE (15:46)
[2021-01-20 15:48] LABS: Alanine Aminotransferase 14 U/L (12-78); Albumin Level 2.7 gm/dl (3.4-5.0); Aspartate Aminotransferase 18 U/L (15-37); BUN Creatinine Ratio 31.1 (10-20); Blood Urea Nitrogen 32 mg/dl (7-18); Calcium 8.1 mg/dl (8.5-10.1); Carbon Dioxide 24 mmol/L (21-32); Chloride 108 mmol/L (98-107); Est GFR (African American) 77.5 ml/min; Est GFR (Non-African American) 66.9 ml/min; Glucose 100 mg/dl (70-99); Lipase 130 U/L (73-393); Potassium 3.4 mmol/L (3.5-5.1); Sodium 138 mmol/L (136-145)
[2021-01-20 15:53] LABS: Albumin Globulin Ratio 0.8 (0.9-2); Alkaline Phosphatase 92 U/L (45-117); Bilirubin,Total 0.5 mg/dl (0.2-1); C Reactive Protein 2.91 mg/dl (0-0.29); Globulin 3.2 gm/dl (2.5-4.0); Total Protein 5.9 gm/dl (6.4-8.2); Troponin I < 0.015 ng/ml (0-0.045)
[2021-01-20 16:01] LABS: Basophils # (auto) 0.03 K/uL (0-0.2); Basophils % (auto) 0.1 %; Immature Granulocytes # (auto) 0.53 K/uL (0.00-0.02); Immature Granulocytes % (auto) 2.5 %; Lymphocytes # (auto) 0.46 K/uL (1.2-3.4); Lymphocytes % (auto) 2.2 %; Mean Platelet Volume 8.7 fL (7.4-10.4); Monocytes # (auto) 0.16 K/uL (0.11-0.59); Monocytes % (auto) 0.8 %; Neutrophils # (auto) 20.03 K/uL (1.4-6.5); Neutrophils % (auto) 94.4 %; Platelet Count 247 K/uL (130-400); Platelet Estimate Normal (Normal)
[2021-01-20 16:24] LABS: Appearance Urine Clear (Clear); Bilirubin Urine Negative (Negative); Blood Urine Negative (Negative); Color Urine Yellow; Glucose Urine UA Negative (Negative); Ketones Urine Negative (Negative); Leukocyte Esterase Urine Negative (Negative); Nitrite Urine Negative (Negative); Protein Urine Negative (Negative); Specific Gravity Urine 1.019 (1.000-1.030); Urobilinogen Urine Negative (Negative)
--- NOTE | 2021-01-20 16:47 | CT Scan Report ---
CT OF THE HEAD WITHOUT CONTRAST CLINICAL HISTORY: weak, fever, confusion COMPARISON STUDY: No previous studies for comparison. CT DOSE: 591.77 mGycm TECHNIQUE: Helical axial images of the head were obtained without IV contrast. Automated exposure con trol was utilized for the study. A dose lowering technique was utilized adhering to the principles o f ALARA. FINDINGS: No acute intracranial hemorrhage, midline shift or mass effect is present. White matter hyp odensity suggests small vessel disease. The ventricular system is unremarkable. The basal cisterns ar e patent. No extra-axial collections are present. There are no findings to suggest acute dural sinus thrombosis or acute territorial infarct. No significant calvarial abnormalities are present. Visualiz ed portions of the sinuses and mastoid air cells are clear. 2 cm lucent lesion within the occipital b one is likely benign. IMPRESSION: No acute intracranial findings. ACT 112: Negative or not required by law. Electronically signed by: Torrey Hood M.D. 01/20/2021 4:46 PM
[2021-01-20] MEDS ORDERED: ONDANSETRON 4 MG OD TAB PO PRN (18:38)
--- NOTE | 2021-01-20 20:48 | History & Physical Report ---
Date of Service January 20, 2021 Assessment & Plan (1) Metabolic encephalopathy: (2) Sepsis: (3) BPH (benign prostatic hypertrophy): (4) T-cell lymphoma: (5) Leg weakness: (6) Coronary artery disease: (7) (HFpEF) heart failure with preserved ejection fraction: Plan: Metabolic encephalopathy 2/2 sepsis (Pneumonia vs Bacteremia) -wbc is elevated and pt was febrile - UA: no sign of infection - CT head: no acute finding -CXR: Minimal left basilar opacity. This favors atelectasis although an infectious process could appear similar. - due to recent port placement and CXR finding will get CT chest with contrast - Procal is slightly elevated -will obtain BCx and Culture from the port - continue the pt on cefepime ----- will add Vancomycin if no improvement in symptoms/VS -due to sepsis will continue pt on DS NS 90 cc/hr until symptoms and VS improves Leg weakness: -PT/OT eval COVID + on 01/05/21 but today the test is negative -pt is not hypoxic & denied any acute respiratory symptoms T cell lymphoma on chemo: -getting Brentuximab every 3 weekly (last treatment on 01/18/21) HFpEF: -last echo showed EF of 55-59% (12/2020) -pt is euvolemic HTN: -BP is better -will continue home meds HLD and BPH: -continue home meds Diet: Cardiac DVT PPx: Lovenox Code Status: Full code Emergency Contact: (Alexia): [phone] Admission and Anticipated Discharge Date Admission Date: January 20, 2021 History of Present Illness Chief Complaint: Confusion and weakness Primary Care Provider: Danny Solitario MD Pt is a 85 y/o M with hx of recent dx of T cell lymphoma currently undergoing chemo (Brentuximab every 3 weekly ), BPH (with chronic prostatitis on biopsy), Hx of urinate retention needing catheter placement, non-obstructive CAD, HFpEF, BPH, hx of DVT on aspirin, hx of Perioperative Afib, HTN, HLD brought into the ER for confusion, weakness and fever since today morning. Pt had a port placement on 01/09/21 and had first cycle of treatment on 01/18/21 Pt tested positive for COVID on 01/05/21 At bedside: pt denied any acute CP, SOB, cough, chills, abd pain, pain near the port placement site or N/V. He complained of b/l leg weakness. Denied any slur speech or blurry vision or [place]. In the ER: Tylenol 1g, 1L NS bolus given, 1L bolus of LR and Cefepime 2000mg Allergies Allergy/AdvReac Type Severity Reaction Status Date / Time No Known Allergies Allergy Unverified 01/20/21 15:39 Home Medications Medication Instructions Recorded Confirmed Type aspirin 81 mg tablet,delayed 81 mg PO QAM 02/12/20 01/20/21 History release tamsulosin 0.4 mg capsule 0.4 mg PO QAM 02/12/20 01/20/21 History finasteride 5 mg tablet 5 mg PO QAM 08/28/20 01/20/21 History omeprazole 40 mg capsule,delayed 40 mg PO QAM #90 cap 10/10/20 01/20/21 Rx release metoprolol tartrate 25 mg tablet 12.5 mg PO BID 01/20/21 01/20/21 History ondansetron HCl 8 mg tablet 8 mg PO Q8 PRN 01/20/21 01/20/21 History simvastatin 20 mg tablet 20 mg PO DAILY 01/20/21 01/20/21 History Past Med/Surg History Medical History (Updated 01/20/21 @ 20:51 by Zulay Capps MD) (HFpEF) heart failure with preserved ejection fraction BPH (benign prostatic hypertrophy) CAD (coronary artery disease) Follows with Dr. Buenrostro in [place] Per 2013 cath- mild to moderate 2 vessel CAD (per cardio note= 40-50% LAD stenosis, circumflex 40% stenosis, RCA 30% stenosis, LVEF 45%) Chronic diastolic heart failure GERD (gastroesophageal reflux disease) Hearing deficit BL [place] History of DVT (deep vein thrombosis) 2015-- unk etiology - per , no blood thinners given at time of dvt History of myocardial infarction 2013 per records HTN (hypertension) Hyperlipemia Osteoarthritis Paroxysmal A-fib while hospitalized 02/2020 [facility] Per 02/16/20 cardio consultation "A. 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 will be starting chemo and needs a port placed Valvular heart disease Echo 12/2020 [facility] in [place] Surgical History History of cardiac cath 2 vessel CAD per records 2013 History of cataract surgery right and left History of colonoscopy History of ERCP History of esophagogastroduodenoscopy (EGD) History of lymph node excision found t cell lymphoma History of tooth extraction Family History Other No family history of adverse response to anesthesia Social History Smoking Status: Unknown if ever smoked Tobacco Type: Smokeless Tobacco (Dip or Chew) Second Hand Exposure: No; Hx Alcohol Use: No Hx Substance Use: No Preferred Language: Zambian Communication Ability: Effective Credit Union Examiner Required: No Beliefs That Will Affect Care: None Current Living Situation: Spouse Feels Safe at Home: Yes Assistive Devices: Glasses and Hearing Aid - Bilateral Review of Systems Review of Systems: At least 10 Review of systems were reviewed and all negative except as indicated in HPI Physical Exam Physical Exam: General:. NAD, well developed, well nourished, average body habitus HEENT:. Normocephalic and atraumatic, Normal Conjunctiva, EOMI, Sclera is non- icteric Lungs:.port placement site: no erythema, swelling or TTP. No signs of respiratory distress, CTA, no wheezing or crackles Heart:. Normal S1, S2, no murmur Abdominal:. ND, Soft, NT MSK:.Normal ROM of the b/l LE, overall normal strength, No deformities of UE and LE, No leg edema Skin:. no rash or open wound Psych:. AAOx3, normal affect Results & Data Results & Data ([facility] [place]) Vital Signs (Past 12 Hours) Vital Signs Temp Pulse Resp BP Pulse Ox 01/20/21 19:50 82 14 110/60 94 01/20/21 19:47 83 24 95 01/20/21 19:31 37.4 C 78 16 93 01/20/21 19:00 76 22 110/54 L 94 01/20/21 18:31 82 21 130/55 L 95 01/20/21 18:00 91/64 L 96 01/20/21 17:30 94 01/20/21 17:20 93 01/20/21 17:10 93 01/20/21 17:00 93 H 14 93 01/20/21 16:50 90 16 94 01/20/21 16:40 94 H 13 93 01/20/21 16:38 103 H 23 93 01/20/21 16:00 96 H 22 122/49 L 94 01/20/21 15:00 104 H 24 133/51 L 01/20/21 14:45 39.3 C H 112 H 33 H 146/43 H 96 01/20/21 14:42 100 H 22 146/43 H 95 Laboratory Results Short CBC 01/20/21 Range/Units 15:10 WBC 21.21 H (4.8-10.8) K/uL Hgb 12.4 L (14.0-18.0) g/dL Hct 37.0 L (42-52) % Plt Count 247 (130-400) K/uL BMP 01/20/21 15:10 Sodium 138 Potassium 3.4 L Chloride 108 H Carbon Dioxide 24 BUN 32 H Creatinine 1.03 Glucose 100 H Calcium 8.1 L Cardiac Enzymes 01/20/21 Range/Units 15:10 Troponin I < 0.015 (0-0.045) ng/ml Liver Function 01/20/21 Range/Units 15:10 Total Bilirubin 0.5 (0.2-1) mg/dl AST 18 (15-37) U/L ALT 14 (12-78) U/L Alkaline Phosphatase 92 (45-117) U/L Albumin 2.7 L (3.4-5.0) gm/dl Urine 01/20/21 Range/Units 16:15 Urine Color Yellow Urine Appearance Clear (Clear) Urine pH 5.0 (4.5-7.5) Ur Specific [place] 1.019 (1.000-1.030) Urine Protein Negative (Negative) Urine Glucose (UA) Negative (Negative) Diagnostic Findings Chest X-Ray 01/20/21 14:45 XR chest 1V portable CLINICAL HISTORY: Fever, weak COMPARISON STUDY: Chest radiograph January 09, 2021. FINDINGS: Patient is rotated. Right internal jugular [id number] is in place. Cardiomediastinal silhouette is stable. There is no pneumothorax or pleural effusion. There is no evidence for pulmonary edema. Calcified left lower lobe granuloma is present. Minimal left basilar opacity likely reflects atelectasis. IMPRESSION: Minimal left basilar opacity. This favors atelectasis although an infectious process could appear similar. ACT 112: Negative or not required by law. Electronically signed by: Torrey Hood M.D. 01/20/2021 3:[address] 01/20/21 14:45 CT OF THE HEAD WITHOUT CONTRAST CLINICAL HISTORY: weak, fever, confusion COMPARISON STUDY: No previous studies for comparison. CT DOSE: 591.77 mGycm TECHNIQUE: Helical axial images of the head were obtained without IV contrast. Automated exposure control was utilized for the study. A dose lowering technique was utilized adhering to the principles of ALARA. FINDINGS: No acute intracranial hemorrhage, midline shift or mass effect is present. White matter hypodensity suggests small vessel disease. The ventricular system is unremarkable. The basal cisterns are patent. No extra-axial collections are present. There are no findings to suggest acute dural sinus thrombosis or acute territorial infarct. No significant calvarial abnormalities are present. Visualized portions of the sinuses and mastoid air cells are clear. 2 cm lucent lesion within the occipital bone is likely benign. IMPRESSION: No acute intracranial findings. ACT 112: Negative or not required by law. Electronically signed by: Torrey Hood M.D. 01/20/2021 4:46 PM Code Status & VTE Plan VTE Prophylaxis Plan VTE Prophylaxis will be ordered: Yes (1) BPH (benign prostatic hypertrophy) Lower urinary tract symptom detail: urinary obstruction Lower urinary tract symptom presence: symptoms present Qualified Code(s): N40.1 - Benign prostatic hyperplasia with lower urinary tract symptoms; N13.8 - Other obstructive and reflux uropathy
[2021-01-20] MEDS: D5W AND NSS 1,000 ML IV SCH (21:46)
[2021-01-20] MEDS: ENOXAPARIN INJ 40 MG/0.4 ML SYR SQ SCH (21:47)
[2021-01-20] MEDS: ACETAMINOPHEN 325 MG TAB PO PRN (22:08)
[2021-01-20] MEDS ORDERED: LORazepam 0.25 MG/0.5 ML VIAL IV STA (23:01)
[2021-01-20] MEDS: METOPROLOL TARTRATE 25 MG TAB PO SCH (23:04)
[2021-01-21] MEDS: METOPROLOL TARTRATE 25 MG TAB PO SCH ×3 (08:07→21:04)
[2021-01-21] MEDS: FINASTERIDE 5 MG TAB PO SCH ×2 (08:07→19:05)
[2021-01-21] MEDS: SIMVASTATIN 20 MG TAB PO SCH ×2 (08:09→19:06)
[2021-01-21] MEDS: ASPIRIN 81 MG ECTAB PO SCH ×2 (08:09→19:05)
[2021-01-21] MEDS: TAMSULOSIN HCL 0.4 MG CAP PO SCH ×2 (08:10→19:06)
[2021-01-21] MEDS: PANTOprazole 40 MG TAB PO SCH ×2 (08:10→19:06)
[2021-01-21] MEDS: D5W AND NSS 1,000 ML IV SCH (08:10)
[2021-01-21] MEDS ORDERED: ACETAMINOPHEN 1,000 MG/100 ML VIAL IV PRN (08:47)
[2021-01-21 08:52] LABS: Albumin Level 2.2 gm/dl (3.4-5.0); BUN Creatinine Ratio 31.7 (10-20); Calcium 7.6 mg/dl (8.5-10.1); Creatinine Clr Calc Pharmacy 67.6 ml/min; Est GFR (Non-African American) 86.3 ml/min; Potassium 2.7 mmol/L (3.5-5.1)
[2021-01-21 08:54] LABS: Albumin Globulin Ratio 0.7 (0.9-2); Bilirubin,Total 0.5 mg/dl (0.2-1); Globulin 2.9 gm/dl (2.5-4.0); Total Protein 5.1 gm/dl (6.4-8.2)
[2021-01-21] MEDS ORDERED: CEFEPIME 2,000 MG in SYRINGE 0 ML IV SCH (09:00)
[2021-01-21] MEDS ORDERED: VANCOMYCIN CONSULT ACTIVE PRN (09:02)
[2021-01-21] MEDS ORDERED: PIPERACILL/TAZOBAC CONSULT ACTIVE PRN (09:08)
[2021-01-21] MEDS ORDERED: VANCOMYCIN HCL 1,500 MG in SODIUM CHLORIDE 0.9% 500 ML IV STA (09:11)
[2021-01-21 09:12] LABS: Hematocrit (blood only) 31.1 % (42-52); Hemoglobin 10.3 g/dL (14.0-18.0); Mean Corpuscular Hemoglobin 29.1 pg (25-34); Mean Corpuscular Hgb Conc 33.1 g/dL (32-36); Mean Corpuscular Volume 87.9 fL (80-100); Mean Platelet Volume 8.7 fL (7.4-10.4); Platelet Count 175 K/uL (130-400); RDW Coefficient of Variation 15.4 % (11.5-14.5); RDW Standard Deviation 50.1 fL (36.4-46.3); Red Blood Count 3.54 M/uL (4.7-6.1); White Blood Count 10.85 K/uL (4.8-10.8)
[2021-01-21 09:13] LABS: ALC (manual) 0.56 K/uL (1.2-3.4); ANC (manual) 10.29 K/uL (1.4-6.5); Lymphocytes # (manual) 0.56 K/uL (1.2-3.4); Lymphocytes % (manual) 5.2 %; Neutrophils # (manual) 10.29 K/uL (1.4-6.5); Neutrophils % (manual) 94.8 %; Platelet Estimate Normal (Normal)
[2021-01-21] MEDS ORDERED: PIPERACILLIN/TAZOBACTAM 3.375 GM in DEXTROSE 5% 100 ML IV ONE (09:15)
--- NOTE | 2021-01-21 09:16 | Hospitalist Progress Note ---
Date of Service January 21, 2021 Assessment & Plan (1) Metabolic encephalopathy: (2) Sepsis: (3) BPH (benign prostatic hypertrophy): (4) T-cell lymphoma: (5) Leg weakness: (6) Coronary artery disease: (7) (HFpEF) heart failure with preserved ejection fraction: Plan: (1) Metabolic encephalopathy: (2) Sepsis: (3) BPH (benign prostatic hypertrophy): (4) T-cell lymphoma: (5) Leg weakness: (6) Coronary artery disease: (7) (HFpEF) heart failure with preserved ejection fraction: Plan: Metabolic encephalopathy secondary to Sepsis possible Pneumonia possible Bacteremia T cell lymphoma on chemo: -getting Brentuximab every 3 weekly (last treatment on 01/18/21) - wbc 21 K on admission Tmax 39.2 Procal elevated Lactic acid normal -CT chest:Minimal bilateral pleural effusion associated with atelectasis at dependent portions of bilateral lower lobes. Infiltrative process/pneumonia is possible. 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 difficile: Negative -Fecal occult blood test: Pending Hold aspirin, heparin -Hemoglobin every 6 hours -Protonix drip GI consulted N.p.o. for now, possible EGD tomorrow Dysphagia CT neck: No obstruction Brain MRI: No signs of acute ischemia Speech therapist consulted, pured diet but currently n.p.o. due to possible GI bleed Hypokalemia Replacement ordered Check magnesium level Leg weakness -PT/OT eval COVID + on 01/05/21 - Covid PCR 01/20 and 01/21: negative - on room air HFpEF: -last echo showed EF of 55-59% (12/2020) -pt is euvolemic HTN: -BP is better -will continue home meds HLD and BPH: -continue home meds Diet: Cardiac DVT PPx: Hold heparin or Lovenox in light of possible GI bleed Code Status: Full code plan of care discussed with his daughter in detail and at length yesterday and today all questions answered she is understanding, agreeable, comfortable with the plan of care Admission and Anticipated Discharge Date Admission Date: January 20, 2021 Subjective Follow-up for encephalopathy, sepsis, pneumonia, etc. Seen resting bed, sitting up, not in distress Oriented x2, answers simple questions appropriately Per RN this morning patient was confused Patient denies headache, dizziness, chest pain Reports cough but no phlegm No abdominal pain, nausea vomiting, chills No other symptoms Review of Systems Review of Systems: all noted and negative except for above Physical Exam Physical Exam: General- oriented x 1-2, not in distress, speaks in sentences with no effort or accessory muscle use Eyes- anicteric Neck- no JVD Lungs-mild crackles at the bases, no wheezing, good air entry bilaterally Heart- normal rate, regular rhythm; no murmurs Abdomen- normal bowel sounds, nondistended, soft, nontender Extremities- no pretibial edema, no calf tenderness Martha shield back-black liquid stools Neuro- alert, oriented x 1-2; no other new gross focal neurologic deficits Skin- warm & dry Results & Data Results & Data ([facility]) Vital Signs (Past 12 Hours) Vital Signs Temp Pulse Pulse Resp BP Pulse Ox 01/21/21 07:34 37.2 C 72 16 116/57 L 93 01/21/21 06:24 38.2 C H 01/21/21 03:22 38.1 C H 94 H 20 153/62 H 95 01/20/21 23:53 98 H 01/20/21 23:20 37.9 C H 88 20 136/87 95 01/20/21 21:59 39.2 C H all noted and reviewed including below (1) BPH (benign prostatic hypertrophy) Lower urinary tract symptom detail: urinary obstruction Lower urinary tract symptom presence: symptoms present Qualified Code(s): N40.1 - Benign prostatic hyperplasia with lower urinary tract symptoms; N13.8 - Other obstructive and reflux uropathy
[2021-01-21] MEDS: D5NSS + 20MEQ KCL 20 MEQ/1,000 ML BAG IV SCH ×2 (10:24→22:58)
[2021-01-21] MEDS: POTASSIUM CHLORIDE / WTR 10 MEQ/100 ML PLCT IV SCH ×4 (10:24→14:18)
--- NOTE | 2021-01-21 10:38 | CT Scan Report ---
CT soft tissue neck wo con CT DOSE: 323.80 mGy.cm CLINICAL HISTORY: dysphagia, hx of thyroid ca TECHNIQUE: A dose lowering technique was utilized adhering to the principles of ALARA. COMPARISON STUDY: None. FINDINGS: Partially visualized portion of thyroid gland shows 0.8 cm hypoattenuating nodule within its right lo be. No large neck mass lesions are seen however evaluation is suboptimal due to lack of IV contrast. Airways are patent. Multiple cervical lymph nodes are seen bilaterally measure up to 0.7 cm in short axis (6/118) Parapharyngeal, design engineer agricultural equipment, para limited and paravertebral spaces are normal. Left submandibular gland is not well seen. Right submandibular gland is normal. Lytic lesion within occipital bone might represent venous structure/venous darling. Multilevel degenerative changes of the cervical spine. Teeth are absent. Mild mucosal thickening within dependent portion of the left maxillary sinus might represent inflamma tory changes/sinusitis in appropriate clinical settings. IMPRESSION: Small hypoattenuating nodule within the right thyroid lobe. Right and left lobes of thyroid gland are visualized. No definite large cervical mass lesions are seen. Left submandibular gland is not visualized. Possible inflammatory changes within left maxillary sinus . Degenerative changes of the spine. Suboptimal exam due to lack of IV contrast. The rest of findings as above. ACT 112: Negative or not required by law. The above report was generated using voice recognition software. It may contain grammatical, syntax o r spelling errors. Electronically signed by: Parvin Singh DO 01/21/2021 10:37 AM
--- NOTE | 2021-01-21 10:54 | CT Scan Report ---
CT chest diagnostic wo con CLINICAL HISTORY: sepsis, possible pneumonia COMPARISON STUDY: No previous studies for comparison. CT DOSE: TECHNIQUE: CT of the thorax was performed from the thoracic inlet to the lung bases. Images are revi ewed in the axial, sagittal, and coronal planes. IV contrast was not administered for this examinatio n. A dose lowering technique was utilized adhering to the principles of ALARA. FINDINGS: Multiple nonenlarged lymph nodes are seen within bilateral axilla, supra clavicle region and mediasti num. Slightly prominent left internal mammary lymph node is seen measuring 1.1 cm in short axis. Over all evaluation is limited due to beam hardening artifact and mediastinal edema. Thyroid: Visualized portion of thyroid gland shows no evidence of focal lesions. Superior aspect of e sophagus is patulous. Midportion of esophagus is not well seen. Thoracic aorta: The thoracic aorta is normal in course and caliber and show scattered calcifications within its wall. Main pulmonary artery is dilated which could be seen in pulmonary hypertension. Heart: Heart is slightly enlarged. Mild pericardial effusion is seen. Severe coronary calcifications are seen. Lungs and pleural spaces: Tracheobronchial tree is patent. This study is acquired during partial expiratory phase. Mild bilater al pleural effusion is seen and associated with compressive atelectasis at dependent portions of bila teral lower lobes. Inflammatory process/pneumonia is also possible. Multiple calcifications are seen within collapsed portion of bilateral lower lobes. -There is 11 mm nodule within lingula (7/221). Overall evaluation of lung parenchyma is significantly limited due to motion artifact. Central venous catheter is seen on the right with tip terminating within superior vena cava. Upper abdomen: Limited evaluation of upper abdomen shows enlarged spleen measuring 14.7 cm in length . Skeletal structures: Mild diffuse osteopenia and degenerative changes of the spine. No definite aggre ssive focal lesions are seen. IMPRESSION: 1. Minimal bilateral pleural effusion associated with atelectasis at dependent portions of bilateral lower lobes. Infiltrative process/pneumonia is possible. 2. Enlarged spleen and multiple lymph nodes, left internal mammary lymph node is most prominent. Gaines ited exam due to very little amount of fat, lack of IV contrast and beam hardening artifact. 3. Possible 11 mm pulmonary nodule within lingula. Etiology could be infectious/inflammatory or neop lastic. Short-term follow-up in 4-[address] of the chest is suggested to document resolution. 4. Slightly enlarged cardiac silhouette. Pericardial effusion. 5. Atherosclerosis. 6. Dilated pulmonary artery which could be seen in pulmonary hypertension. 7. The rest of findings as above. ACT 112: Negative or not required by law. The above report was generated using voice recognition software. It may contain grammatical, syntax o r spelling errors. Electronically signed by: Parvin Singh DO 01/21/2021 10:52 AM
--- NOTE | 2021-01-21 11:53 | Pharmacy Report ---
Pharmacy Abx Dose Short Note - Date of Service January 21, 2021 - Assessment & Plan Assessment 85 year old M receiving IV Vancomycin and Zosyn for treatment of sepsis secondary to pneumonia vs. bacteremia Day # 1 of antimicrobial therapy. * sCr = 0.72 mg/dL (baseline ~1 mg/dL) with estimated CrCl ~68 mL/min. Calculated pharmacokinetic parameters: * Ke ~0.061/hr, T1/2 ~11.4 hrs * According to [employer], Vancomycin maintenance regimen of 750mg IV q12 will produce a therapeutic trough of 17.2 mg/dL to achieve AUC 400-600 mg/L.hr with 13% risk for toxicity Plan Vancomycin * Give Vancomycin 1500mg (~24mg/kg) IV x 1 as a loading dose * Initiate Vancomycin 750mg IV q12 as maintenance regimen * Goal trough level for sepsis : 15 to 20 mcg/mL * No trough level ordered at this time due to empiric indication. If Vancomycin to be continued >48 hours, will order at that time to reassess dosing regimen Zosyn * Give Zosyn 3.375g loading dose x 1, then initiate 3.375g IV q8 (extended infusion) for CrCl >20 mL/min Pharmacy will continue to follow and will adjust dose/frequency as necessary. Thank you.
[2021-01-21] MEDS: PIPERACILLIN/TAZOBACTAM 3.375 GM in DEXTROSE 5% 100 ML IV SCH ×2 (13:23→22:53)
--- NOTE | 2021-01-21 14:05 | Hospitalist Progress Note ---
Date of Service January 21, 2021 Assessment & Plan (1) Metabolic encephalopathy: (2) Sepsis: (3) BPH (benign prostatic hypertrophy): (4) T-cell lymphoma: (5) Leg weakness: (6) Coronary artery disease: (7) (HFpEF) heart failure with preserved ejection fraction: Plan: Metabolic encephalopathy secondary to Sepsis possible Pneumonia possible Bacteremia - wbc 21 K on admission Tmax 39.2 Procal elevated Lactic acid normal -CT chest:Minimal bilateral pleural effusion associated with atelectasis at dependent portions of bilateral lower lobes. Infiltrative process/pneumonia is possible. UA: no sign of infection CT head: no acute finding - Blood cultures: pending - continue Vanco + Zosyn Day 1 monitor Leg weakness: -PT/OT eval COVID + on 01/05/21 - Covid PCR 01/20: negative repeat pending - on room air Dysphagia - CT neck: no obstruction seen - speech therapy evaluation pending HypoK - replace and monitor T cell lymphoma on chemo: -getting Brentuximab every 3 weekly (last treatment on 01/18/21) HFpEF: -last echo showed EF of 55-59% (12/2020) -pt is euvolemic HTN: -BP is better -will continue home meds HLD and BPH: -continue home meds Diet: Cardiac DVT PPx: Lovenox Code Status: Full code Emergency Contact: (Alexia): [phone] Admission and Anticipated Discharge Date Admission Date: January 20, 2021 Subjective ff up for sepsis, T cell lymphoma, etc seen resting in bed, sitting up alert, oriented to person and place, answers most questions appropriately states he feels improved compared to yesterday no headache, dizziness, cough, chest pain, abdominal pain, pain on the port site had 1 loose BM per RN no other symptoms Review of Systems Review of Systems: all noted and negative except for above Physical Exam Physical Exam: General- oriented x 2, not in distress, speaks in sentences with no effort or accessory muscle use somewhat weak Head- atraumatic Eyes- PERRL, EOMI, anicteric ENT- oropharynx clear Neck- supple, no JVD, no adenopathy, no thyromegaly; carotids +2/2, no bruits appreciated Lungs- clear to auscultation bilaterally, no rales/wheezes port site: no signs of infection Heart- normal rate, regular rhythm; no murmur, no gallop, no rub appreciated Abdomen- normal bowel sounds, nondistended, soft, nontender, no masses or hepatosplenomegaly Extremities- no pretibial edema, no calf tenderness; peripheral pulses intact Neuro- alert, oriented x 2; CN 2-12 grossly intact; motor 5/5 bilaterally;sensation 100% on all extremities; no other gross focal neurologic deficits Skin- warm & dry Results & Data Results & Data ([facility]) Vital Signs (Past 12 Hours) Vital Signs Temp Pulse Pulse Pulse Resp BP Pulse Ox 01/21/21 11:03 36.6 C 71 16 120/62 97 01/21/21 07:35 81 01/21/21 07:34 37.2 C 72 16 116/57 L 93 01/21/21 06:24 38.2 C H 01/21/21 03:22 38.1 C H 94 H 20 153/62 H 95 all noted and reviewed including below (1) BPH (benign prostatic hypertrophy) Lower urinary tract symptom detail: urinary obstruction Lower urinary tract symptom presence: symptoms present Qualified Code(s): N40.1 - Benign prostatic hyperplasia with lower urinary tract symptoms; N13.8 - Other obstructive and reflux uropathy
--- NOTE | 2021-01-21 18:05 | Magnetic Resonance Report ---
MRI OF THE BRAIN WITHOUT CONTRAST CLINICAL HISTORY: dysphagia, altered mental status, r/o CVA COMPARISON STUDY: None. FINDINGS: Sagittal T1, axial diffusion, proton density and T2 weighted axial, coronal FLAIR, and axial T1-weigh naman images were acquired. No intra -axial mass lesions are visualized. There is questionable isointense signal is seen within left paracentral aspect of the cavernosal sinu s (/ and 01/15) which might represent suprasellar mass. Axial diffusion-weighted images reveal no evidence of acute or subacute infarction. There is no evidence of ventricular dilatation. Proton density T2-weighted and FLAIR images reveal scattered foci of increased T2 signal within the w eveline matter, likely on a small vessel basis. Multiple focal areas of high T2 signal is seen within mi d brain, tono and right cerebellar lobe which could represent lacunar infarcts. There are no abnormal flow voids. CSF signal is seen within occipital bone which was also seen on CT of the head performed yesterday and could represent prominent vascular structure/venous darling. IMPRESSION: No acute intracranial hemorrhage, no midline shift or space occupying lesions. Questionable isointense signal change within left paracentral aspect of the cavernous sinus which jatin ht represent small suprasellar mass. Further evaluation with dedicated pituitary MRI on nonemergency basis is suggested. Chronic small vessel ischemia. Lacunar infarcts within right cerebellar lobe. No evidence of restricted diffusion to suggest acute ischemia/infarct. ACT 112: Positive. There are findings on this exam that require communication between the performing entity and the patient following Patient Test Result Information Act ([place] Act 112) guidelines. The above report was generated using voice recognition software. It may contain grammatical, syntax o r spelling errors. Electronically signed by: Parvin Singh DO 01/21/2021 6:04 PM
--- NOTE | 2021-01-21 20:23 | Electrocardiogram Report ---
Test Reason : Blood Pressure : / mmHG Vent. Rate : 102 BPM Atrial Rate : 102 BPM P-R Int : 152 ms QRS Dur : 090 ms QT Int : 332 ms P-R-T Axes : 075 -52 055 degrees QTc Int : 432 ms Poor data quality, interpretation may be adversely affected Sinus tachycardia Left axis deviation Abnormal ECG When compared with ECG of 14-FEB-2020 22:55, Sinus rhythm has replaced Atrial fibrillation Nonspecific T wave abnormality no longer evident in Inferior leads Nonspecific T wave abnormality now evident in Anterior leads Confirmed by Dennis Pollard ([id number]) on 01/21/2021 8:22:49 PM Referred By: REFERRED SELF Confirmed By:Dennis Pollard
[2021-01-21] MEDS: ENOXAPARIN INJ 40 MG/0.4 ML SYR SQ SCH (21:07)
[2021-01-21] MEDS: ACETAMINOPHEN 325 MG TAB PO PRN (21:13)
[2021-01-21] MEDS: VANCOMYCIN HCL 750 MG in SODIUM CHLORIDE 0.9% 250 ML IV SCH (22:53)
[2021-01-22] MEDS ORDERED: KETOROLAC TROMETHAMINE 15 MG/ML VIAL IV ONE (04:41)
[2021-01-22] MEDS: PIPERACILLIN/TAZOBACTAM 3.375 GM in DEXTROSE 5% 100 ML IV SCH ×3 (06:28→23:36)
[2021-01-22 08:32] LABS: BUN Creatinine Ratio 21.7 (10-20); Calcium 7.4 mg/dl (8.5-10.1); Creatinine Clr Calc Pharmacy 55.4 ml/min; Est GFR (African American) 91.2 ml/min; Est GFR (Non-African American) 78.7 ml/min; Potassium 2.7 mmol/L (3.5-5.1)
[2021-01-22 08:34] LABS: ALC (manual) 0.25 K/uL (1.2-3.4); ANC (manual) 2.89 K/uL (1.4-6.5); Dohle Bodies 1+; Hematocrit (blood only) 29.6 % (42-52); Hemoglobin 9.8 g/dL (14.0-18.0); Lymphocytes # (manual) 0.25 K/uL (1.2-3.4); Lymphocytes % (manual) 7.8 %; Mean Corpuscular Hemoglobin 28.5 pg (25-34); Mean Corpuscular Hgb Conc 33.1 g/dL (32-36); Mean Platelet Volume 8.8 fL (7.4-10.4); Monocytes # (manual) 0.03 K/uL (0.11-0.59); Monocytes % (manual) 0.9 %; Neutrophils # (manual) 2.89 K/uL (1.4-6.5); Neutrophils % (manual) 91.3 %; Platelet Count 127 K/uL (130-400); Platelet Estimate Decreased (Normal); RDW Coefficient of Variation 15.5 % (11.5-14.5); RDW Standard Deviation 49.8 fL (36.4-46.3); Red Blood Count 3.44 M/uL (4.7-6.1); Toxic Granulation 1+; Toxic Vacuolation 1+; White Blood Count 3.16 K/uL (4.8-10.8)
[2021-01-22] MEDS: PANTOprazole 40 MG TAB PO SCH (08:42)
[2021-01-22] MEDS: TAMSULOSIN HCL 0.4 MG CAP PO SCH (08:42)
[2021-01-22] MEDS: METOPROLOL TARTRATE 25 MG TAB PO SCH ×2 (08:42→21:24)
[2021-01-22] MEDS: SIMVASTATIN 20 MG TAB PO SCH (08:42)
[2021-01-22] MEDS: ASPIRIN 81 MG ECTAB PO SCH (08:42)
[2021-01-22] MEDS: FINASTERIDE 5 MG TAB PO SCH (08:43)
[2021-01-22] MEDS: VANCOMYCIN HCL 750 MG in SODIUM CHLORIDE 0.9% 250 ML IV SCH ×2 (08:46→23:34)
[2021-01-22] MEDS ORDERED: LOPERAMIDE HCL 2 MG CAP PO PRN (10:15)
[2021-01-22] MEDS: D5NSS + 20MEQ KCL 20 MEQ/1,000 ML BAG IV SCH ×2 (12:06→21:23)
[2021-01-22] MEDS: POTASSIUM CHLORIDE PWD 20 MEQ PACK PO SCH ×2 (12:06→21:24)
[2021-01-22] MEDS ORDERED: PANTOPRAZOLE BOLUS/DRIP 1 EA IV STA (15:11)
[2021-01-22] MEDS ORDERED: PANTOprazole 80 MG in DEXTROSE 5% 100 ML IV ONE (15:30)
[2021-01-22 16:00] LABS: Hematocrit (blood only) 28.1 % (42-52); Hemoglobin 9.4 g/dL (14.0-18.0)
[2021-01-22] MEDS: PANTOprazole 40 MG in DEXTROSE 5% 100 ML IV SCH ×2 (16:16→21:23)
[2021-01-22] MEDS ORDERED: PANTOprazole 40 MG in SYRINGE 0 ML IV SCH (21:00)
[2021-01-22] MEDS ORDERED: VANCOMYCIN TROUGH ONE (21:30)
[2021-01-22 21:55] LABS: Hematocrit (blood only) 28.8 % (42-52); Hemoglobin 9.6 g/dL (14.0-18.0)
[2021-01-23] MEDS ORDERED: GADOBUTROL 65ML VIAL IV ONE (02:50)
[2021-01-23 03:55] LABS: BUN Creatinine Ratio 24.4 (10-20); Calcium 7.3 mg/dl (8.5-10.1); Creatinine Clr Calc Pharmacy 68.3 ml/min; Est GFR (African American) 99.4 ml/min; Est GFR (Non-African American) 85.8 ml/min; Potassium 3.1 mmol/L (3.5-5.1)
[2021-01-23] MEDS: PANTOprazole 40 MG in DEXTROSE 5% 100 ML IV SCH ×3 (03:56→13:55)
[2021-01-23] MEDS: D5NSS + 20MEQ KCL 20 MEQ/1,000 ML BAG IV SCH ×3 (03:56→16:52)
[2021-01-23 04:17] LABS: Hematocrit (blood only) 27.9 % (42-52); Hemoglobin 9.7 g/dL (14.0-18.0); Mean Corpuscular Hemoglobin 29.4 pg (25-34); Mean Corpuscular Hgb Conc 34.8 g/dL (32-36); Mean Corpuscular Volume 84.5 fL (80-100); Platelet Count 85 K/uL (130-400); RDW Coefficient of Variation 15.4 % (11.5-14.5); RDW Standard Deviation 48.5 fL (36.4-46.3); White Blood Count 0.67 K/uL (4.8-10.8)
[2021-01-23 04:18] LABS: ALC (manual) 0.24 K/uL (1.2-3.4); ANC (manual) 0.42 K/uL (1.4-6.5); Dohle Bodies 3+; Echinocytes 2+; Lymphocytes # (manual) 0.24 K/uL (1.2-3.4); Lymphocytes % (manual) 36.4 %; Monocytes # (manual) 0.01 K/uL (0.11-0.59); Monocytes % (manual) 1.3 %; Neutrophils # (manual) 0.42 K/uL (1.4-6.5); Neutrophils % (manual) 62.3 %; Platelet Estimate Decreased (Normal); Toxic Granulation Occasional; Toxic Vacuolation 1+
[2021-01-23] MEDS ORDERED: POTASSIUM CHLORIDE CRTAB 20 MEQ TABCR PO STA (05:35)
[2021-01-23] MEDS: PIPERACILLIN/TAZOBACTAM 3.375 GM in DEXTROSE 5% 100 ML IV SCH ×3 (06:44→22:04)
[2021-01-23 08:56] LABS: Base Excess ABG -4.4 mEq/L (-9-1.8); HCO3 ABG 18 mmol/L (19-24); Oxygen Saturation ABG 93.4 % (90-95); PCO2 ABG 25 mmHg (35-46); PO2 ABG 61 mmHg (80-95); pH ABG 7.47 (7.35-7.45)
[2021-01-23 08:57] LABS: Allen Test Pos (Pos); Hematocrit (blood only) 28.7 % (42-52); Hemoglobin 9.3 g/dL (14.0-18.0)
[2021-01-23] MEDS: POTASSIUM CHLORIDE / WTR 10 MEQ/100 ML PLCT IV SCH ×4 (09:19→12:49)
[2021-01-23] MEDS: VANCOMYCIN HCL 1,000 MG in SODIUM CHLORIDE 0.9% 250 ML IV SCH ×2 (09:27→22:04)
[2021-01-23] MEDS: POTASSIUM CHLORIDE PWD 20 MEQ PACK PO SCH (09:47)
[2021-01-23] MEDS: FINASTERIDE 5 MG TAB PO SCH (09:47)
[2021-01-23] MEDS: SIMVASTATIN 20 MG TAB PO SCH (09:47)
[2021-01-23] MEDS: TAMSULOSIN HCL 0.4 MG CAP PO SCH (09:47)
[2021-01-23] MEDS: METOPROLOL TARTRATE 25 MG TAB PO SCH ×2 (09:47→22:58)
--- NOTE | 2021-01-23 11:42 | Gastrointestinal Consultation ---
Date of Consultation January 23, 2021 Assessment & Plan (1) History of melena: This is an 85-year-old male with the above comorbidities, admitted with confusion, concern for metabolic encephalopathy, sepsis. GI asked to evaluate for episode of melena that occured yesterday. His hemoglobin has trended down somewhat from his baseline, but today is having no overt GI bleeding. Etiology of his presentation not entirely clear though may be related to stress from underlying infectious process or perhaps with ABX or recent chemo treatment. Abdomen soft, is hemodynamically stable. Stool studies negative so far. - Would recommend continuing IV PPI twice daily - Would defer endoscopy at this time given lack of active overt GIB - Await final stool culture results - He can have diet as per primary team - Monitor and document GI output - Trend H&H, transfuse as needed Thank you for allowing us to participate in the care of this patient. Please call with any acute changes, questions or concerns. Please see addendum below with additional recommendation from my supervising physician. Supervising Physician Co-Signing Physician Notes I have personally seen and examined the patient with Rylie Roberts PA-C. Her note reflects my exam and findings. I agree with her impression and plan. H/H stable. No roll for endoscopy at this point. Cont PPI BID. Patient can eat. Liam Ramírez M.D. History of Present Illness Reason for Consultation: melena Requesting Physician: Dr. Paul Attending Physician: Luis Carlos Paul MD History of Present Illness Mr. Dedrick Gray is a an 85 y/o male with PMHx recent dx of T cell lymphoma, with recent port placement, currently undergoing chemo (Brentuximab every 3 weeks), BPH, non-obstructive CAD, HFpEF, BPH, hx of DVT on aspirin, hx of Perioperative Afib, HTN, HLD brought into the ER for confusion, weakness and fever 01/20/21. Work-up suggestive of metabolic encephalopathy, sepsis (? pneumonia, bacteremia). He has chronic anemia, baseline is around 12 and was 12.4 on arrival. He had an episode of dark stool yesterday, and Hgb has slowly trended down, is 9.3 presently. BUN is not significantly above baseline. GI asked to evaluate for melena. He had an episode of brown liquid stool this AM. C. diff testing neg; awaiting final stool culture. He has been having some hypokalemia as well. WBC was 21k on admission, today is 0.67. Presently is hypertensive, afebrile. Today, patient knows he is at [facility], and knows the year, but does not know the date, does not provide specific details of his history. Denies any specific GI complaints no abdominal pain, nausea vomiting, hematochezia, hematemesis, denies chest pain or shortness of breath, fevers or chills. Allergies Allergy/AdvReac Type Severity Reaction Status Date / Time No Known Allergies Allergy Unverified 01/20/21 15:39 Home Medications Medication Instructions Recorded Confirmed Type aspirin 81 mg tablet,delayed 81 mg PO QAM 02/12/20 01/20/21 History release tamsulosin 0.4 mg capsule 0.4 mg PO QAM 02/12/20 01/20/21 History finasteride 5 mg tablet 5 mg PO QAM 08/28/20 01/20/21 History omeprazole 40 mg capsule,delayed 40 mg PO QAM #90 cap 10/10/20 01/20/21 Rx release metoprolol tartrate 25 mg tablet 12.5 mg PO BID 01/20/21 01/20/21 History ondansetron HCl 8 mg tablet 8 mg PO Q8 PRN 01/20/21 01/20/21 History simvastatin 20 mg tablet 20 mg PO DAILY 01/20/21 01/20/21 History Patient History Medical History (Updated 01/23/21 @ 11:49 by Rylie Roberts PA-C) (HFpEF) heart failure with preserved ejection fraction BPH (benign prostatic hypertrophy) CAD (coronary artery disease) Follows with Dr. Buenrostro in [place] Per 2013 cath- mild to moderate 2 vessel CAD (per cardio note= 40-50% LAD stenosis, circumflex 40% stenosis, RCA 30% stenosis, LVEF 45%) Chronic diastolic heart failure GERD (gastroesophageal reflux disease) Hearing deficit [place] History of DVT (deep vein thrombosis) 2015-- unk etiology - per , no blood thinners given at time of dvt History of myocardial infarction 2013 per records HTN (hypertension) Hyperlipemia Osteoarthritis Paroxysmal A-fib while hospitalized 02/2020 [facility] Per 02/16/20 cardio consultation "A. 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 will be starting chemo and needs a port placed Valvular heart disease Echo 12/2020 s in [place] Surgical History History of cardiac cath 2 vessel CAD per records 2014 History of cataract surgery right and left History of colonoscopy History of ERCP History of esophagogastroduodenoscopy (EGD) History of lymph node excision found t cell lymphoma History of tooth extraction Family History Other No family history of adverse response to anesthesia Social History Smoking Status: Never smoker Tobacco Type: Smokeless Tobacco (Dip or Chew) Second Hand Exposure: No; Do You Dip or Chew Tobacco: Yes; Hx Alcohol Use: Yes Hx Substance Use: No Preferred Language: Japanese Communication Ability: Effective Data Integration Developer Required: No Beliefs That Will Affect Care: None Current Living Situation: Spouse Feels Safe at Home: Yes Safety Concerns: Feels Safe At This Time Assistive Devices: None Review of Systems Review of Systems: A complete review of systems was completed and negative except as noted in HPI Physical Exam Constitutional: Chronically ill, no acute illness Eyes: Sclera anicteric Respiratory: normal respiratory effort, lungs clear to auscultation Cardiovascular: RRR, no murmur, no edema Gastrointestinal (Abdomen): normal bowel sounds, soft, nontender, no hepatosplenomegaly Skin: no rashes, warm and dry Psychiatric: Alert, somewhat oriented to place, but not time Results & Data ([facility]) Vital Signs (Past 12 Hours) Vital Signs Temp Pulse Pulse Resp BP Pulse Ox 01/23/21 08:00 75 01/23/21 07:12 36.8 C 79 20 132/66 95 01/23/21 04:21 37.5 C 78 16 136/49 L 95 01/23/21 00:30 37.5 C 74 16 132/55 L 94 01/23/21 00:00 70 Laboratory Results 01/23/21 01/23/21 01/23/21 Range/Units 08:44 08:44 08:44 WBC (4.8-10.8) K/uL RBC (4.7-6.1) M/uL Hgb 9.3 L (14.0-18.0) g/dL Hct 28.7 L (42-52) % MCV (80-100) fL MCH (25-34) pg MCHC (32-36) g/dL RDW Std Deviation (36.4-46.3) fL RDW Coeff of Alan (11.5-14.5) % Plt Count (130-400) K/uL MPV (7.4-10.4) fL Neutrophils % (Manual) % Lymphocytes % (Manual) % Monocytes % (Manual) % Neutrophils # (Manual) (1.4-6.5) K/uL Total Absolute Neuts (1.4-6.5) K/uL Lymphocytes # (Manual) (1.2-3.4) K/uL Total Abs Lymphocytes (1.2-3.4) K/uL Monocytes # (Manual) (0.11-0.59) K/uL Hypersegmented Neuts Toxic Granulation Toxic Vacuolation Dohle Bodies Platelet Estimate (Normal) Echinocytes ABG pH 7.47 H (7.35-7.45) ABG pCO2 25 L (35-46) mmHg ABG pO2 61 L (80-95) mmHg ABG HCO3 18 L (19-24) mmol/L ABG O2 Saturation 93.4 (90-95) % ABG Base Excess -4.4 (-9-1.8) mEq/L Reji Test Pos (Pos) Barometric Pressure 739.5 mm/Hg Oxygen Given ROOMN AIR Sodium (136-145) mmol/L Potassium (3.5-5.1) mmol/L Chloride (98-107) mmol/L Carbon Dioxide (21-32) mmol/L Anion Gap (3-11) BUN (7-18) mg/dl Creatinine (0.6-1.4) mg/dl Est Cr Clr Drug Dosing ml/min Est GFR ( Amer) ml/min Est GFR (Non-Af Amer) ml/min BUN/Creatinine Ratio (10-20) Glucose (70-99) mg/dl Lactate 1.1 (0.4-2.0) mmol/L Uric Acid (2.6-7.2) mg/dl Calcium (8.5-10.1) mg/dl Magnesium (1.8-2.4) mg/dl Lactate Dehydrogenase (87-241) U/L Stool Occult Bld Scrn (Negative) Vancomycin Trough (See Comment) mcg/ml 01/23/21 01/23/21 01/22/21 Range/Units 03:30 03:30 21:36 WBC 0.67 L* (4.8-10.8) K/uL RBC 3.30 L (4.7-6.1) M/uL Hgb 9.7 L 9.6 L (14.0-18.0) g/dL Hct 27.9 L 28.8 L (42-52) % MCV 84.5 (80-100) fL MCH 29.4 (25-34) pg MCHC 34.8 (32-36) g/dL RDW Std Deviation 48.5 H (36.4-46.3) fL RDW Coeff of Alan 15.4 H (11.5-14.5) % Plt Count 85 L (130-400) K/uL MPV 9.0 (7.4-10.4) fL Neutrophils % (Manual) 62.3 % Lymphocytes % (Manual) 36.4 % Monocytes % (Manual) 1.3 % Neutrophils # (Manual) 0.42 L (1.4-6.5) K/uL Total Absolute Neuts 0.42 L* (1.4-6.5) K/uL Lymphocytes # (Manual) 0.24 L (1.2-3.4) K/uL Total Abs Lymphocytes 0.24 L (1.2-3.4) K/uL Monocytes # (Manual) 0.01 L (0.11-0.59) K/uL Hypersegmented Neuts 1+ Toxic Granulation Occasional Toxic Vacuolation 1+ Dohle Bodies 3+ Platelet Estimate Decreased L (Normal) Echinocytes 2+ ABG pH (7.35-7.45) ABG pCO2 (35-46) mmHg ABG pO2 (80-95) mmHg ABG HCO3 (19-24) mmol/L ABG O2 Saturation (90-95) % ABG Base Excess (-9-1.8) mEq/L Reji Test (Pos) Barometric Pressure mm/Hg Oxygen Given Sodium 139 (136-145) mmol/L Potassium 3.1 L (3.5-5.1) mmol/L Chloride 113 H (98-107) mmol/L Carbon Dioxide 18 L (21-32) mmol/L Anion Gap 8.0 (3-11) BUN 18 (7-18) mg/dl Creatinine 0.73 (0.6-1.4) mg/dl Est Cr Clr Drug Dosing 68.3 ml/min Est GFR ( Amer) 99.4 ml/min Est GFR (Non-Af Amer) 85.8 ml/min BUN/Creatinine Ratio 24.4 H (10-20) Glucose 113 H (70-99) mg/dl Lactate (0.4-2.0) mmol/L Uric Acid (2.6-7.2) mg/dl Calcium 7.3 L (8.5-10.1) mg/dl Magnesium (1.8-2.4) mg/dl Lactate Dehydrogenase (87-241) U/L Stool Occult Bld Scrn (Negative) Vancomycin Trough (See Comment) mcg/ml 01/22/21 01/22/21 01/22/21 Range/Units 21:36 15:47 15:44 WBC (4.8-10.8) K/uL RBC (4.7-6.1) M/uL Hgb (14.0-18.0) g/dL Hct (42-52) % MCV (80-100) fL MCH (25-34) pg MCHC (32-36) g/dL RDW Std Deviation (36.4-46.3) fL RDW Coeff of Alan (11.5-14.5) % Plt Count (130-400) K/uL MPV (7.4-10.4) fL Neutrophils % (Manual) % Lymphocytes % (Manual) % Monocytes % (Manual) % Neutrophils # (Manual) (1.4-6.5) K/uL Total Absolute Neuts (1.4-6.5) K/uL Lymphocytes # (Manual) (1.2-3.4) K/uL Total Abs Lymphocytes (1.2-3.4) K/uL Monocytes # (Manual) (0.11-0.59) K/uL Hypersegmented Neuts Toxic Granulation Toxic Vacuolation Dohle Bodies Platelet Estimate (Normal) Echinocytes ABG pH (7.35-7.45) ABG pCO2 (35-46) mmHg ABG pO2 (80-95) mmHg ABG HCO3 (19-24) mmol/L ABG O2 Saturation (90-95) % ABG Base Excess (-9-1.8) mEq/L Reji Test (Pos) Barometric Pressure mm/Hg Oxygen Given Sodium (136-145) mmol/L Potassium (3.5-5.1) mmol/L Chloride (98-107) mmol/L Carbon Dioxide (21-32) mmol/L Anion Gap (3-11) BUN (7-18) mg/dl Creatinine (0.6-1.4) mg/dl Est Cr Clr Drug Dosing ml/min Est GFR ( Amer) ml/min Est GFR (Non-Af Amer) ml/min BUN/Creatinine Ratio (10-20) Glucose (70-99) mg/dl Lactate (0.4-2.0) mmol/L Uric Acid (2.6-7.2) mg/dl Calcium (8.5-10.1) mg/dl Magnesium 2.1 (1.8-2.4) mg/dl Lactate Dehydrogenase (87-241) U/L Stool Occult Bld Scrn Positive A (Negative) Vancomycin Trough 7.4 (See Comment) mcg/ml 01/22/21 01/22/21 01/22/21 Range/Units 15:44 15:44 15:41 WBC (4.8-10.8) K/uL RBC (4.7-6.1) M/uL Hgb 9.4 L (14.0-18.0) g/dL Hct 28.1 L (42-52) % MCV (80-100) fL MCH (25-34) pg MCHC (32-36) g/dL RDW Std Deviation (36.4-46.3) fL RDW Coeff of Alan (11.5-14.5) % Plt Count (130-400) K/uL MPV (7.4-10.4) fL Neutrophils % (Manual) % Lymphocytes % (Manual) % Monocytes % (Manual) % Neutrophils # (Manual) (1.4-6.5) K/uL Total Absolute Neuts (1.4-6.5) K/uL Lymphocytes # (Manual) (1.2-3.4) K/uL Total Abs Lymphocytes (1.2-3.4) K/uL Monocytes # (Manual) (0.11-0.59) K/uL Hypersegmented Neuts Toxic Granulation Toxic Vacuolation Dohle Bodies Platelet Estimate (Normal) Echinocytes ABG pH (7.35-7.45) ABG pCO2 (35-46) mmHg ABG pO2 (80-95) mmHg ABG HCO3 (19-24) mmol/L ABG O2 Saturation (90-95) % ABG Base Excess (-9-1.8) mEq/L Reji Test (Pos) Barometric Pressure mm/Hg Oxygen Given Sodium (136-145) mmol/L Potassium (3.5-5.1) mmol/L Chloride (98-107) mmol/L Carbon Dioxide (21-32) mmol/L Anion Gap (3-11) BUN (7-18) mg/dl Creatinine (0.6-1.4) mg/dl Est Cr Clr Drug Dosing ml/min Est GFR ( Amer) ml/min Est GFR (Non-Af Amer) ml/min BUN/Creatinine Ratio (10-20) Glucose (70-99) mg/dl Lactate (0.4-2.0) mmol/L Uric Acid 2.5 L (2.6-7.2) mg/dl Calcium (8.5-10.1) mg/dl Magnesium (1.8-2.4) mg/dl Lactate Dehydrogenase 192 (87-241) U/L Stool Occult Bld Scrn (Negative) Vancomycin Trough (See Comment) mcg/ml Diagnostic Findings CXR 01/20/21: IMPRESSION: Minimal left basilar opacity. This favors atelectasis although an infectious process could appear similar. CT chest 01/21/21: FINDINGS: Multiple nonenlarged lymph nodes are seen within bilateral axilla, supra clavicl e region and mediastinum. Slightly prominent left internal mammary lymph node is seen measuring 1.1 cm in short axis. Overall evaluation is limited due to beam hardening artifact and mediastinal edema. Thyroid: Visualized portion of thyroid gland shows no evidence of focal lesions. Superior aspect of esophagus is patulous. Midportion of esophagus is not well seen. Thoracic aorta: The thoracic aorta is normal in course and caliber and show scattered calcifications within its wall. Main pulmonary artery is dilated which could be seen in pulmonary hypertension. Heart: Heart is slightly enlarged. Mild pericardial effusion is seen. Severe coronary calcifications are seen. Lungs and pleural spaces: Tracheobronchial tree is patent. This study is acquired during partial expiratory phase. Mild bilateral pleural effusion is seen and associated with compressive atelectasis at dependent portions of bilateral lower lobes. Inflammatory process/pneumonia is also possible. Multiple calcifications are seen within collapsed portion of bilateral lower lobes. -There is 11 mm nodule within lingula (7/221). Overall evaluation of lung parenchyma is significantly limited due to motion artifact. Central venous catheter is seen on the right with tip terminating within superior vena cava. Upper abdomen: Limited evaluation of upper abdomen shows enlarged spleen measuring 14.7 cm in length. Skeletal structures: Mild diffuse osteopenia and degenerative changes of the spine. No definite aggressive focal lesions are seen. IMPRESSION: 1. Minimal bilateral pleural effusion associated with atelectasis at dependent portions of bilateral lower lobes. Infiltrative process/pneumonia is possible. 2. Enlarged spleen and multiple lymph nodes, left internal mammary lymph node is most prominent. Limited exam due to very little amount of fat, lack of IV contrast and beam hardening artifact. 3. Possible 11 mm pulmonary nodule within lingula. Etiology could be infectious/inflammatory or neoplastic. Short-term follow-up in 4-[address] of the chest is suggested to document resolution. 4. Slightly enlarged cardiac silhouette. Pericardial effusion. 5. Atherosclerosis. 6. Dilated pulmonary artery which could be seen in pulmonary hypertension. 7. The rest of findings as above.
--- NOTE | 2021-01-23 12:20 | Pharmacy Report ---
Pharmacy Abx Dose Short Note - Date of Service January 23, 2021 - Assessment & Plan Assessment * Mr Gray is an 85 year old M receiving IV Vancomycin and Zosyn for treatment of sepsis secondary to pneumonia vs. bacteremia * Day #3 of antimicrobial therapy. * Vancomycin level of 7.4mcg/mL obtained last night suggests subtherapeutic vanc dosing. This is supported by information obtained from [employer]. Plan Vancomycin * Increase vancomycin to 1gm IV q12h * Goal trough level for sepsis (pna/bacteremia): 15 to 20 mcg/mL * Per provider, antibiotic therapy should be extended for 7 days from today (until final culture results are available). * No further levels have been ordered at this time. Will re-consider the need for additional monitoring as vanc therapy progresses. Zosyn * Give Zosyn 3.375g loading dose x 1, then initiate 3.375g IV q8 (extended infusion) for CrCl >20 mL/min Pharmacy will continue to follow and will adjust dose/frequency as necessary. Thank you.
--- NOTE | 2021-01-23 13:11 | Magnetic Resonance Report ---
MR brain pituitary wo/w con HISTORY: 85 years-old Male possible suprasellar mamss acute strokelike symptoms. COMPARISON: Brain MRI 01/21/2021, head CT 01/20/2021 TECHNIQUE: Multiplanar multisequence MR of the brain was obtained both with and without the use of 6 mL Gadavist. FINDINGS: There is no restricted diffusion to suggest acute or subacute infarct. The study is motion degraded. No pathologic blooming artifact. No acute intracranial hemorrhage, midline shift, abnormal extra-axia l collection, hydrocephalus or intra-axial mass. Age-related involutional changes. Moderate T2/FLAIR hyperintensities throughout the white matter are suggestive of chronic microvascular ischemic disease . Cerebral venous sinuses and major arterial flow voids appear patent. Trace right mastoid effusion. The left mastoid air cells are clear. Minimal mucosal thickening of the ethmoid sinuses. Prior bilate ral lens repair. The skull and soft tissues are unremarkable. There is an ovoid circumscribed T1 and T2 isointense left suprasellar lesion abutting the pituitary s talk which appears to demonstrate mild homogeneous enhancement and measures 7 x 7 x 9 mm nicely seen on image 11 series 18 and image 10 of series 19. IMPRESSION: 1. No acute intracranial abnormality. No acute or subacute infarct. 2. 7 x 7 x 9 mm suprasellar lesion abutting the pituitary stalk is suggestive of a probable meningiom a. ACT 112: Negative or not required by law. The above report was generated using voice recognition software. It may contain grammatical, syntax o r spelling errors. Electronically signed by: Jose Murrieta M.D. 01/23/2021 1:10 PM
--- NOTE | 2021-01-23 16:22 | Hospitalist Progress Note ---
Date of Service January 23, 2021 Assessment & Plan (1) Metabolic encephalopathy: (2) Sepsis: (3) BPH (benign prostatic hypertrophy): (4) T-cell lymphoma: (5) Leg weakness: (6) Coronary artery disease: (7) (HFpEF) heart failure with preserved ejection fraction: Plan: (1) Metabolic encephalopathy: (2) Sepsis: (3) BPH (benign prostatic hypertrophy): (4) T-cell lymphoma: (5) Leg weakness: (6) Coronary artery disease: (7) (HFpEF) heart failure with preserved ejection fraction: Plan: Metabolic encephalopathy secondary to Sepsis possible Pneumonia possible Bacteremia T cell lymphoma on chemo: -Received brentuximab, Cytoxan, doxorubicin, January 18, 2021; after 3 days developed weakness, altered mental status - wbc 21 K on admission Tmax 39.2 Procal elevated Lactic acid normal -CT chest:Minimal bilateral pleural effusion associated with atelectasis at dependent portions of bilateral lower lobes. Infiltrative process/pneumonia is possible. 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 Sims, continue monitoring for now, expect to improve in the coming days Suprasellar lesion, incidental finding on MRI Brain MRI pituitary gland:7 x 7 x 9 mm suprasellar lesion abutting the pituitary stalk is suggestive of a probable meningioma. Patient denies headache, visual disturbance Discussed with Dr. Riggs, most likely incidental finding Repeat brain MRI pituitary gland in 6 months Check TSH and cortisol for completion Diarrhea, melena -C. difficile: Negative -Fecal occult blood test: Positive Hold aspirin, heparin -Hemoglobin remaining stable at 9 GI consulted, defer EGD for now as patient does not seem to have an acute GI bleed given stable hemoglobin Transition from Protonix drip to Protonix IV twice daily Resume aspirin and heparin if hemoglobin remains stable Dysphagia CT neck: No obstruction Brain MRI: No signs of acute ischemia Speech therapist consulted, pured diet Tolerating pured diet well For possible video fluoroscopic swallowing study tomorrow Hypokalemia Replacement ordered Check magnesium level Leg weakness -PT/OT eval COVID + on 01/05/21 - Covid PCR 01/20 and 01/21: negative - on room air HFpEF: -last echo showed EF of 55-59% (12/2020) -pt is euvolemic HTN: -BP is better -will continue home meds HLD and BPH: -continue home meds DVT PPx: Resume Lovenox if hemoglobin stable, GI bleed unlikely Code Status: Full code plan of care discussed with patient and his daughter in detail and at length today all questions answered she is understanding, agreeable, comfortable with the plan of care Admission and Anticipated Discharge Date Admission Date: January 20, 2021 Subjective Follow-up for encephalopathy, pneumonia, T-cell lymphoma status post chemotherapy, etc. Seen sitting up in bed, awake and alert, oriented x3, answers all questions appropriately States he feels improved compared to yesterday Denies any confusion now Has occasional dry cough but no chest pain, shortness of breath, headache, dizziness, nausea vomiting Tolerated pured diet for lunch, but appetite is not that great Denies abdominal pain No new neurologic symptoms No other symptoms Review of Systems Review of Systems: all noted and negative except for above Physical Exam Physical Exam: General- oriented x 3, not in distress, speaks in sentences with no effort or accessory muscle use Eyes- anicteric Neck- no JVD Lungs-mild rales at the bases, no wheezing, good air entry bilaterally Port on the right chest wall-no signs of bleeding or discharge Heart- normal rate, regular rhythm; no murmurs Abdomen- normal bowel sounds, nondistended, soft, nontender Extremities- no pretibial edema, no calf tenderness Neuro- alert, oriented x 3; no new gross focal neurologic deficits Skin- warm & dry Results & Data Results & Data ([facility]) Vital Signs (Past 12 Hours) Vital Signs Temp Pulse Pulse Resp BP Pulse Ox 01/23/21 16:03 36.6 C 67 19 124/63 96 01/23/21 15:20 66 01/23/21 11:42 36.8 C 79 19 165/75 H 97 01/23/21 08:00 75 01/23/21 07:12 36.8 C 79 20 132/66 95 all noted and reviewed including below (1) BPH (benign prostatic hypertrophy) Lower urinary tract symptom detail: urinary obstruction Lower urinary tract symptom presence: symptoms present Qualified Code(s): N40.1 - Benign prostatic hyperplasia with lower urinary tract symptoms; N13.8 - Other obstructive and reflux uropathy
[2021-01-23] MEDS: PANTOprazole 40 MG in SYRINGE 0 ML IV SCH (22:05)
[2021-01-24] MEDS: D5NSS + 20MEQ KCL 20 MEQ/1,000 ML BAG IV SCH ×2 (03:04→17:01)
[2021-01-24] MEDS: PIPERACILLIN/TAZOBACTAM 3.375 GM in DEXTROSE 5% 100 ML IV SCH ×3 (05:50→21:55)
[2021-01-24 06:45] LABS: BUN Creatinine Ratio 18.5 (10-20); Calcium 7.1 mg/dl (8.5-10.1); Creatinine Clr Calc Pharmacy 76.7 ml/min; Est GFR (African American) 104.3 ml/min; Potassium 2.9 mmol/L (3.5-5.1)
[2021-01-24 06:52] LABS: Hematocrit (blood only) 28.9 % (42-52); Hemoglobin 9.6 g/dL (14.0-18.0); Mean Corpuscular Hemoglobin 28.7 pg (25-34); Mean Corpuscular Hgb Conc 33.2 g/dL (32-36); Mean Corpuscular Volume 86.5 fL (80-100); Mean Platelet Volume 8.9 fL (7.4-10.4); Platelet Count 80 K/uL (130-400); RDW Coefficient of Variation 15.4 % (11.5-14.5); RDW Standard Deviation 49.7 fL (36.4-46.3); Red Blood Count 3.34 M/uL (4.7-6.1); White Blood Count 0.32 K/uL (4.8-10.8)
[2021-01-24] MEDS: POTASSIUM CHLORIDE / WTR 10 MEQ/100 ML PLCT IV SCH ×4 (09:48→13:17)
[2021-01-24] MEDS: PANTOprazole 40 MG in SYRINGE 0 ML IV SCH ×2 (09:50→21:55)
[2021-01-24] MEDS: FINASTERIDE 5 MG TAB PO SCH ×2 (09:54→10:03)
[2021-01-24] MEDS: TAMSULOSIN HCL 0.4 MG CAP PO SCH ×2 (09:54→10:03)
[2021-01-24] MEDS: METOPROLOL TARTRATE 25 MG TAB PO SCH ×2 (09:54→21:55)
[2021-01-24] MEDS: SIMVASTATIN 20 MG TAB PO SCH (09:56)
[2021-01-24] MEDS: POTASSIUM CHLORIDE PWD 20 MEQ PACK PO SCH (09:56)
[2021-01-24] MEDS: VANCOMYCIN HCL 1,000 MG in SODIUM CHLORIDE 0.9% 250 ML IV SCH ×2 (11:05→21:54)
[2021-01-24] MEDS ORDERED: OLANZapine 10 MG/2.1 ML SDV IM STA (16:35)
--- NOTE | 2021-01-24 17:10 | Hospitalist Progress Note ---
Date of Service January 24, 2021 Assessment & Plan (1) Metabolic encephalopathy: (2) Sepsis: (3) BPH (benign prostatic hypertrophy): (4) T-cell lymphoma: (5) Leg weakness: (6) Coronary artery disease: (7) (HFpEF) heart failure with preserved ejection fraction: Plan: (1) Metabolic encephalopathy: (2) Sepsis: (3) BPH (benign prostatic hypertrophy): (4) T-cell lymphoma: (5) Leg weakness: (6) Coronary artery disease: (7) (HFpEF) heart failure with preserved ejection fraction: Plan: Metabolic encephalopathy secondary to Sepsis possible Pneumonia possible Bacteremia T cell lymphoma on chemo: -Received brentuximab, Cytoxan, doxorubicin, January 18, 2021; after 3 days developed weakness, altered mental status - wbc 21 K on admission Tmax 39.2 Procal elevated Lactic acid normal -CT chest:Minimal bilateral pleural effusion associated with atelectasis at dependent portions of bilateral lower lobes. Infiltrative process/pneumonia is possible. 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 Sims, continue monitoring for now, expect to improve in the coming days Suprasellar lesion, incidental finding on MRI Brain MRI pituitary gland:7 x 7 x 9 mm suprasellar lesion abutting the pituitary stalk is suggestive of a probable meningioma. Patient denies headache, visual disturbance Discussed with Dr. Riggs, most likely incidental finding Repeat brain MRI pituitary gland in 6 months Check TSH and cortisol for completion Diarrhea, melena -C. difficile: Negative -Fecal occult blood test: Positive - Continue to Hold aspirin, heparin -Hemoglobin remaining stable at 9.6 GI consulted, defer EGD for now as patient does not seem to have an acute GI bleed given stable hemoglobin Transition from Protonix drip to Protonix IV twice daily Resume aspirin and heparin if hemoglobin remains stable Dysphagia CT neck: No obstruction Brain MRI: No signs of acute ischemia Speech therapist consulted, pured diet Tolerating pured diet well For possible video fluoroscopic swallowing study tomorrow Hypokalemia K 2.9 today K replaced Continue monitor BMP Leg weakness -PT/OT eval COVID + on 01/05/21 - Covid PCR 01/20 and 01/21: negative - on room air HFpEF: -last echo showed EF of 55-59% (12/2020) -pt is euvolemic HTN: -BP is better -will continue home meds HLD and BPH: -continue home meds DVT PPx: Resume Lovenox if hemoglobin stable, GI bleed unlikely Code Status: Full code Admission and Anticipated Discharge Date Admission Date: January 20, 2021 Subjective Pt was seen and examined for follow up of confusion,pneumonia and electrolytes abnormality Sitting in the restroom to urinate Pt needs assistance to transfer to bed Nurse said that he was agitated Denies any chest pain, palpitation, dizziness and SOB Review of Systems Review of Systems: All systems reviewed & are unremarkable except as noted in Subjective Physical Exam Physical Exam: General- No acute distress Head- atraumatic Eyes- PERRL, EOMI, ENT- oropharynx clear Neck- supple, no JVD Lungs- clear to auscultation Heart- regular rhythm; no murmur Abdomen- normal bowel sounds, soft, nontender Extremities- no calf tenderness Neuro- alert, oriented x 3; PERRL, EOMI; no facial palsy; no dysarthria Skin- warm & dry Results & Data Results & [facility] ([facility]) Vital Signs (Past 12 Hours) Vital Signs Temp Pulse Pulse Pulse Resp BP Pulse Ox 01/24/21 16:53 69 18 121/79 96 01/24/21 15:21 36.5 C 70 12 116/66 96 01/24/21 12:37 37.2 C 01/24/21 11:22 66 14 122/71 96 01/24/21 07:46 36.5 C 64 16 129/69 96 01/24/21 07:00 63 01/24/21 06:39 67 (1) BPH (benign prostatic hypertrophy) Lower urinary tract symptom detail: urinary obstruction Lower urinary tract symptom presence: symptoms present Qualified Code(s): N40.1 - Benign prostatic hyperplasia with lower urinary tract symptoms; N13.8 - Other obstructive and re flux uropathy
[2021-01-24 19:07] LABS: BUN Creatinine Ratio 21.3 (10-20); Creatinine Clr Calc Pharmacy 80.4 ml/min; Est GFR (African American) 106.3 ml/min; Est GFR (Non-African American) 91.7 ml/min; Potassium 3.3 mmol/L (3.5-5.1)
[2021-01-24] MEDS ORDERED: POTASSIUM CHLORIDE CRTAB 20 MEQ TABCR PO STA (22:26)
[2021-01-24] MEDS ORDERED: POTASSIUM CHLORIDE PWD 20 MEQ PACK PO STA (23:10)
[2021-01-24 23:48] LABS: Magnesium 1.9 mg/dl (1.8-2.4)
[2021-01-25] MEDS: POTASSIUM CHLORIDE / WTR 10 MEQ/100 ML PLCT IV SCH ×2 (00:20→01:20)
[2021-01-25] MEDS: PIPERACILLIN/TAZOBACTAM 3.375 GM in DEXTROSE 5% 100 ML IV SCH ×3 (05:59→22:28)
[2021-01-25] MEDS: D5NSS + 20MEQ KCL 20 MEQ/1,000 ML BAG IV SCH ×2 (05:59→19:53)
[2021-01-25] MEDS: METOPROLOL TARTRATE 25 MG TAB PO SCH ×2 (07:43→19:56)
[2021-01-25] MEDS: FINASTERIDE 5 MG TAB PO SCH (07:44)
[2021-01-25] MEDS: PANTOprazole 40 MG in SYRINGE 0 ML IV SCH ×2 (07:50→19:55)
[2021-01-25] MEDS: SIMVASTATIN 20 MG TAB PO SCH (07:51)
[2021-01-25] MEDS: TAMSULOSIN HCL 0.4 MG CAP PO SCH (07:51)
[2021-01-25] MEDS: POTASSIUM CHLORIDE PWD 20 MEQ PACK PO SCH (07:51)
[2021-01-25 07:56] LABS: Hematocrit (blood only) 30.7 % (42-52); Hemoglobin 10.2 g/dL (14.0-18.0); Mean Corpuscular Hemoglobin 28.4 pg (25-34); Mean Corpuscular Hgb Conc 33.2 g/dL (32-36); Mean Corpuscular Volume 85.5 fL (80-100); Mean Platelet Volume 9.1 fL (7.4-10.4); Platelet Count 76 K/uL (130-400); RDW Coefficient of Variation 15.2 % (11.5-14.5); RDW Standard Deviation 48.6 fL (36.4-46.3); Red Blood Count 3.59 M/uL (4.7-6.1); White Blood Count 0.34 K/uL (4.8-10.8)
[2021-01-25 08:21] LABS: BUN Creatinine Ratio 15.4 (10-20); Calcium 6.9 mg/dl (8.5-10.1); Creatinine Clr Calc Pharmacy 75.4 ml/min; Est GFR (Non-African American) 88.9 ml/min; Potassium 3.2 mmol/L (3.5-5.1)
[2021-01-25] MEDS ORDERED: POTASSIUM CHLORIDE CRTAB 20 MEQ TABCR PO STA (08:40)
[2021-01-25] MEDS ORDERED: VANCOMYCIN TROUGH ONE ×2 (09:30→21:30)
[2021-01-25] MEDS: VANCOMYCIN HCL 1,000 MG in SODIUM CHLORIDE 0.9% 250 ML IV SCH (09:58)
--- NOTE | 2021-01-25 13:26 | Palliative Care Consultation ---
Date of Consultation January 25, 2021 Assessment & Plan (1) Metabolic encephalopathy: Variable. This was not present prior to admission per his daughter, Rita. (2) Palliative care encounter: I spoke with Rita who is very frustrated. She is emphatic that he did not have any confusion prior to admission. Her perception is that his mental status has improved. We discussed the fact that this can be variable. She is also frustrated with not being able to visit him. I acknowledged her frustration and spoke with Dr. Pozo about giving her an update on Mr Gray's progress. She is not at the point of discussing goals of care at this time. Dr. Pozo will talk with Dr. Galvez to clarify prognosis. We will be available if needed to assist with goals of care moving forward if that is helpful. (3) T-cell lymphoma: (4) Coronary artery disease: (5) Neutropenia: (6) Sepsis: History of Present Illness Reason for Consultation: goals of care Requesting Physician: Dr. Pozo Attending Physician: Pascual Pozo MD History of Present Illness 85 yo who was recently diagnosed with T cell lymphoma. He had a port placed on 01/12 and had one round of chemotherapy. He was admitted with fever and weakness and is being treated for sepsis. He has comorbid CAD, HFpEF and urinary retention. He was also Covid positive earlier this month. He did have an episode of melena during this admission and is on a PPI. Unfortunately, he has had persistent encephalopathy. CT of head was negative and MRI showed an incidental 7mm suprasellar lesion. His appetite has been poor and he tells me that he is not hungry. "I'm not hungry before I eat or after I eat". Most of his responses are not in context but he denies pain or shortness of breath. When I asked him how he's doing, he answered "not good". Allergies Allergy/AdvReac Type Severity Reaction Status Date / Time No Known Allergies Allergy Unverified 01/20/21 15:39 Home Medications Medication Instructions Recorded Confirmed Type aspirin 81 mg tablet,delayed 81 mg PO QAM 02/12/20 01/20/21 History release tamsulosin 0.4 mg capsule 0.4 mg PO QAM 02/12/20 01/20/21 History finasteride 5 mg tablet 5 mg PO QAM 08/28/20 01/20/21 History omeprazole 40 mg capsule,delayed 40 mg PO QAM #90 cap 10/10/20 01/20/21 Rx release metoprolol tartrate 25 mg tablet 12.5 mg PO BID 01/20/21 01/20/21 History ondansetron HCl 8 mg tablet 8 mg PO Q8 PRN 01/20/21 01/20/21 History simvastatin 20 mg tablet 20 mg PO DAILY 01/20/21 01/20/21 History Patient History Medical History (HFpEF) heart failure with preserved ejection fraction BPH (benign prostatic hypertrophy) CAD (coronary artery disease) Follows with Dr. Buenrostro in [place] Per 2014 cath- mild to moderate 2 vessel CAD (per cardio note= 40-50% LAD stenosis, circumflex 40% stenosis, RCA 30% stenosis, LVEF 45%) Chronic diastolic heart failure GERD (gastroesophageal reflux disease) Hearing deficit [place] History of DVT (deep vein thrombosis) 2015-- unk etiology - per , no blood thinners given at time of dvt History of myocardial infarction 2013 per records HTN (hypertension) Hyperlipemia Osteoarthritis Paroxysmal A-fib while hospitalized 02/2020 [facility] Per 02/16/20 cardio consultation "A. 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 will be starting chemo and needs a port placed Valvular heart disease Echo 12/2020 [facility] [place] Surgical History History of cardiac cath 2 vessel CAD per records 2013 History of cataract surgery right and left History of colonoscopy History of ERCP History of esophagogastroduodenoscopy (EGD) History of lymph node excision found t cell lymphoma History of tooth extraction Family History Other No family history of adverse response to anesthesia Social History Smoking Status: Never smoker Tobacco Type: Smokeless Tobacco (Dip or Chew) Second Hand Exposure: No; Do You Dip or Chew Tobacco: Yes; Hx Alcohol Use: Yes Hx Substance Use: No Preferred Language: [place] Communication Ability: Effective Custom Bow Maker Required: No Beliefs That Will Affect Care: None Current Living Situation: Spouse Feels Safe at Home: Yes Safety Concerns: Feels Safe At This Time Assistive Devices: None Review of Systems Review of Systems: Bracey Symptom Assessment Scale Pain 0/3 Dyspnea 0/3 Fatigue 2/3 Anxiety 0/3 Drowsiness 0/3 Palliative Performance Score 30% Physical Exam Constitutional: + altered mental status and + disheveled; no acute distress Respiratory: normal respiratory effort; no labored breathing Cardiovascular: Rate/Rhythm: regular rate and regular rhythm Gastrointestinal (Abdomen): nontender Musculoskeletal: Extremities: extremities normal to inspection Neurologic: awake and + confused Results & Data ([facility]) Vital Signs (Past 12 Hours) Vital Signs Temp Pulse Pulse Resp BP Pulse Ox 01/25/21 11:06 97.5 F L 68 16 123/65 91 01/25/21 08:00 70 01/25/21 07:42 97.5 F L 75 18 116/66 98 01/25/21 04:00 97.7 F 66 18 129/73 96 PG Care Time/CCT Total # of Minutes Spent Total Time Spent: 60 Total Time Spent with Patient: Total time spent is greater than 50% in coordination of care (as documented) at patient's floor/unit and/or counseling patient: goals of care, family update and support Coding Level of Care Code 87990 Initial Inpt Care Lvl 2 Diagnoses Metabolic encephalopathy G93.41 Palliative care encounter Z51.5 T-cell lymphoma C85.90 Coronary artery disease I25.10 Neutropenia D70.9 Sepsis A41.9
[2021-01-25] MEDS ORDERED: CALCIUM GLUCONATE 10% 2,000 MG in SODIUM CHLORIDE 0.9% 50 ML IV ONE (17:15)
--- NOTE | 2021-01-25 17:26 | Hospitalist Progress Note ---
Date of Service January 25, 2021 Assessment & Plan (1) Metabolic encephalopathy: (2) Sepsis: (3) BPH (benign prostatic hypertrophy): (4) T-cell lymphoma: (5) Leg weakness: (6) Coronary artery disease: (7) (HFpEF) heart failure with preserved ejection fraction: Plan: (1) Metabolic encephalopathy: (2) Sepsis: (3) BPH (benign prostatic hypertrophy): (4) T-cell lymphoma: (5) Leg weakness: (6) Coronary artery disease: (7) (HFpEF) heart failure with preserved ejection fraction: Plan: Metabolic encephalopathy secondary to Sepsis possible Pneumonia possible Bacteremia T cell lymphoma on chemo: -Received brentuximab, Cytoxan, doxorubicin, January 18, 2021; after 3 days developed weakness, altered mental status - wbc 21 K on admission Tmax 39.2 Procal elevated Lactic acid normal -CT chest:Minimal bilateral pleural effusion associated with atelectasis at dependent portions of bilateral lower lobes. Infiltrative process/pneumonia is possible. 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 Sims, continue monitoring for now, expect to improve in the coming days Suprasellar lesion, incidental finding on MRI Brain MRI pituitary gland:7 x 7 x 9 mm suprasellar lesion abutting the pituitary stalk is suggestive of a probable meningioma. Patient denies headache, visual disturbance Discussed with Dr. Riggs, most likely incidental finding Repeat brain MRI pituitary gland in 6 months Check TSH and cortisol for completion Diarrhea, melena -C. difficile: Negative -Fecal occult blood test: Positive - Continue to Hold aspirin, heparin -Hemoglobin remaining stable at 9.6 GI consulted, defer EGD for now as patient does not seem to have an acute GI bleed given stable hemoglobin Transition from Protonix drip to Protonix IV twice daily Resume aspirin and heparin if hemoglobin remains stable Dysphagia CT neck: No obstruction Brain MRI: No signs of acute ischemia Speech therapist consulted, pured diet Tolerating pured diet well For possible video fluoroscopic swallowing study tomorrow Hypokalemia K replaced Continue monitor BMP Leg weakness -PT/OT eval COVID + on 01/05/21 - Covid PCR 01/20 and 01/21: negative - on room air HFpEF: -last echo showed EF of 55-59% (12/2020) -pt is euvolemic HTN: -BP is better -will continue home meds HLD and BPH: -continue home meds DVT PPx: Resume Lovenox if hemoglobin stable, GI bleed unlikely Code Status: Full code Admission and Anticipated Discharge Date Admission Date: January 20, 2021 Subjective Pt was seen and examined for follow up of confusion,pneumonia and electrolytes abnormality Lying in bed with no distress with 1 to one sitted Spoke to daughter Rita today and provided with update Denies any chest pain, palpitation, dizziness and SOB Review of Systems Review of Systems: All systems reviewed & are unremarkable except as noted in Subjective Physical Exam Physical Exam: General- No acute distress Head- atraumatic Eyes- PERRL, EOMI, ENT- oropharynx clear Neck- supple, no JVD Lungs- clear to auscultation Heart- regular rhythm; no murmur Abdomen- normal bowel sounds, soft, nontender Extremities- no calf tenderness Neuro- alert, oriented x 3; PERRL, EOMI; no facial palsy; no dysarthria Skin- warm & dry Results & Data Results & Data ([facility]) Vital Signs (Past 12 Hours) Vital Signs Temp Pulse Pulse Resp BP Pulse Ox 01/25/21 16:44 74 01/25/21 14:59 36.8 C 74 19 136/73 97 01/25/21 11:06 36.4 C L 68 16 123/65 91 01/25/21 08:00 70 01/25/21 07:42 36.4 C L 75 18 116/66 98 (1) BPH (benign prostatic hypertrophy) Lower urinary tract symptom detail: urinary obstruction Lower urinary tract symptom presence: symptoms present Qualified Code(s): N40.1 - Benign prostatic hyperplasia with lower urinary tract symptoms; N13.8 - Other obstructive and reflux uropathy
[2021-01-25] MEDS: HALOPERIDOL LACTATE 5 MG/ML 1 ML VIAL IM PRN (22:27)
[2021-01-26] MEDS: PIPERACILLIN/TAZOBACTAM 3.375 GM in DEXTROSE 5% 100 ML IV SCH ×2 (06:21→15:54)
[2021-01-26] MEDS: METOPROLOL TARTRATE 25 MG TAB PO SCH ×2 (08:34→21:13)
[2021-01-26] MEDS: PANTOprazole 40 MG in SYRINGE 0 ML IV SCH ×2 (08:34→21:13)
[2021-01-26] MEDS: SIMVASTATIN 20 MG TAB PO SCH (08:35)
[2021-01-26] MEDS: FINASTERIDE 5 MG TAB PO SCH (08:35)
[2021-01-26] MEDS: POTASSIUM CHLORIDE PWD 20 MEQ PACK PO SCH (08:35)
[2021-01-26] MEDS: TAMSULOSIN HCL 0.4 MG CAP PO SCH (08:35)
[2021-01-26 08:50] LABS: Hematocrit (blood only) 29.4 % (42-52); Hemoglobin 10.2 g/dL (14.0-18.0); Mean Corpuscular Hemoglobin 28.7 pg (25-34); Mean Corpuscular Hgb Conc 34.7 g/dL (32-36); Mean Corpuscular Volume 82.6 fL (80-100); Mean Platelet Volume 9.2 fL (7.4-10.4); Platelet Count 88 K/uL (130-400); RDW Coefficient of Variation 14.8 % (11.5-14.5); RDW Standard Deviation 44.5 fL (36.4-46.3); Red Blood Count 3.56 M/uL (4.7-6.1)
[2021-01-26 09:22] LABS: Calcium 7.4 mg/dl (8.5-10.1); Creatinine Clr Calc Pharmacy 77.7 ml/min; Est GFR (African American) 104.3 ml/min; Magnesium 1.6 mg/dl (1.8-2.4); Phosphorus 1.8 mg/dl (2.5-4.9); Potassium 3.2 mmol/L (3.5-5.1)
[2021-01-26] MEDS ORDERED: POTASSIUM CHLORIDE CRTAB 20 MEQ TABCR PO STA (09:51)
[2021-01-26] MEDS ORDERED: POTASSIUM PHOS 3 MMOL/1 ML INFUSION IV STA (09:51)
[2021-01-26] MEDS ORDERED: POTASSIUM PHOSPHATE 15 MMOL in SODIUM CHLORIDE 0.9% 250 ML IV ONE (10:00)
[2021-01-26] MEDS: HALOPERIDOL LACTATE 5 MG/ML 1 ML VIAL IM PRN ×4 (10:28→22:42)
[2021-01-26] MEDS: MAGNESIUM SULFATE / D5W 1 GM/100 ML BAG IV SCH ×2 (11:29→13:19)
[2021-01-26] MEDS: D5NSS + 20MEQ KCL 20 MEQ/1,000 ML BAG IV SCH (15:06)
[2021-01-26] MEDS ORDERED: OLANZapine 10 MG/2.1 ML SDV IM STA (15:25)
--- NOTE | 2021-01-26 22:40 | Hospitalist Progress Note ---
Date of Service January 26, 2021 Assessment & Plan (1) Metabolic encephalopathy: (2) Sepsis: (3) BPH (benign prostatic hypertrophy): (4) T-cell lymphoma: (5) Leg weakness: (6) Coronary artery disease: (7) (HFpEF) heart failure with preserved ejection fraction: Plan: (1) Metabolic encephalopathy: (2) Sepsis: (3) BPH (benign prostatic hypertrophy): (4) T-cell lymphoma: (5) Leg weakness: (6) Coronary artery disease: (7) (HFpEF) heart failure with preserved ejection fraction: Plan: Metabolic encephalopathy secondary to Sepsis possible Pneumonia possible Bacteremia T cell lymphoma on chemo: -Received brentuximab, Cytoxan, doxorubicin, January 18, 2021; after 3 days developed weakness, altered mental status - wbc 21 K on admission Tmax 39.2 Procal elevated Lactic acid normal -CT chest:Minimal bilateral pleural effusion associated with atelectasis at dependent portions of bilateral lower lobes. Infiltrative process/pneumonia is possible. 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 Sims, continue monitoring for now, expect to improve in the coming days Suprasellar lesion, incidental finding on MRI Brain MRI pituitary gland:7 x 7 x 9 mm suprasellar lesion abutting the pituitary stalk is suggestive of a probable meningioma. Patient denies headache, visual disturbance Discussed with Dr. Riggs, most likely incidental finding Repeat brain MRI pituitary gland in 6 months Check TSH and cortisol for completion Diarrhea, melena -C. difficile: Negative -Fecal occult blood test: Positive - Continue to Hold aspirin, heparin -Hemoglobin remaining stable at 9.6 GI consulted, defer EGD for now as patient does not seem to have an acute GI bleed given stable hemoglobin Transition from Protonix drip to Protonix IV twice daily Resume aspirin and heparin if hemoglobin remains stable Dysphagia CT neck: No obstruction Brain MRI: No signs of acute ischemia Speech therapist consulted, pured diet Tolerating pured diet well For possible video fluoroscopic swallowing study tomorrow Electrolytes Imbalance Potassium 3.2, Mg 1.6 and Phos 1.8 Electrolytes replaced Continue monitor Electrolytes Leg weakness -PT/OT eval COVID + on 01/05/21 - Covid PCR 01/20 and 01/21: negative - on room air HFpEF: -last echo showed EF of 55-59% (12/2020) -pt is euvolemic HTN: -BP is better -will continue home meds HLD and BPH: -continue home meds DVT PPx: Resume Lovenox if hemoglobin stable, GI bleed unlikely Code Status: Full code Admission and Anticipated Discharge Date Admission Date: January 20, 2021 Subjective Pt was seen and examined for follow up of confusion,pneumonia and electrolytes abnormality Lying in bed with no distress with 1 to one sitter Nurse said that pt was awake all night Spoke to lola Salinas today and provided with update Denies any chest pain, palpitation, dizziness and SOB Review of Systems Review of Systems: All systems reviewed & are unremarkable except as noted in Subjective Physical Exam Physical Exam: General- No acute distress Head- atraumatic Eyes- PERRL, EOMI, ENT- oropharynx clear Neck- supple, no JVD Lungs- clear to auscultation Heart- regular rhythm; no murmur Abdomen- normal bowel sounds, soft, nontender Extremities- no calf tenderness Neuro- alert, oriented x 3; PERRL, EOMI; no facial palsy; no dysarthria Skin- warm & dry Results & Data Results & Data ([facility]) Vital Signs (Past 12 Hours) Vital Signs Temp Pulse Pulse Resp BP Pulse Ox 01/26/21 19:08 36.9 C 79 17 103/59 L 95 01/26/21 17:37 72 01/26/21 15:27 36.5 C 80 18 125/66 96 01/26/21 11:20 36.6 C 91 H 18 137/50 L 97 (1) BPH (benign prostatic hypertrophy) Lower urinary tract symptom detail: urinary obstruction Lower urinary tract symptom presence: symptoms present Qualified Code(s): N40.1 - Benign prostatic hyperplasia with lower urinary tract symptoms; N13.8 - Other obstructive and reflux uropathy
[2021-01-26 23:31] LABS: Potassium 3.4 mmol/L (3.5-5.1)
[2021-01-26 23:37] LABS: Magnesium 1.8 mg/dl (1.8-2.4); Phosphorus 1.9 mg/dl (2.5-4.9)
[2021-01-27] MEDS ORDERED: POTASSIUM PHOS 3 MMOL/1 ML INFUSION IV STA (01:47)
[2021-01-27] MEDS ORDERED: POTASSIUM PHOSPHATE 21 MMOL in SODIUM CHLORIDE 0.9% 500 ML IV ONE (02:00)
[2021-01-27 08:09] LABS: BUN Creatinine Ratio 4.9 (10-20); Calcium 6.8 mg/dl (8.5-10.1); Creatinine Clr Calc Pharmacy 77.7 ml/min; Est GFR (African American) 104.3 ml/min; Potassium 3.6 mmol/L (3.5-5.1)
[2021-01-27] MEDS: PANTOprazole 40 MG in SYRINGE 0 ML IV SCH ×2 (08:49→19:42)
[2021-01-27] MEDS: FINASTERIDE 5 MG TAB PO SCH (08:50)
[2021-01-27] MEDS: SIMVASTATIN 20 MG TAB PO SCH (08:51)
[2021-01-27] MEDS: TAMSULOSIN HCL 0.4 MG CAP PO SCH (08:51)
[2021-01-27] MEDS: METOPROLOL TARTRATE 25 MG TAB PO SCH ×2 (08:51→19:42)
[2021-01-27] MEDS: POTASSIUM CHLORIDE PWD 20 MEQ PACK PO SCH (08:52)
[2021-01-27] MEDS: HALOPERIDOL LACTATE 5 MG/ML 1 ML VIAL IM PRN (10:07)
[2021-01-27] MEDS: D5NSS + 20MEQ KCL 20 MEQ/1,000 ML BAG IV SCH ×2 (10:10→22:48)
[2021-01-27 10:21] LABS: Hematocrit (blood only) 28.6 % (42-52); Hemoglobin 9.8 g/dL (14.0-18.0); Mean Corpuscular Hemoglobin 28.7 pg (25-34); Mean Corpuscular Hgb Conc 34.3 g/dL (32-36); Mean Corpuscular Volume 83.6 fL (80-100); Mean Platelet Volume 9.7 fL (7.4-10.4); Platelet Count 105 K/uL (130-400); RDW Coefficient of Variation 14.9 % (11.5-14.5); RDW Standard Deviation 45.5 fL (36.4-46.3); Red Blood Count 3.42 M/uL (4.7-6.1); White Blood Count 1.45 K/uL (4.8-10.8)
[2021-01-27 10:27] LABS: Magnesium 1.9 mg/dl (1.8-2.4); Phosphorus 2.9 mg/dl (2.5-4.9)
--- NOTE | 2021-01-27 23:56 | Hospitalist Progress Note ---
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 Infiltrative process/pneumonia is possible. 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 Sims, continue monitoring for now, expect to improve in the coming days Platelet continue to improve Suprasellar lesion, incidental finding on MRI Brain MRI pituitary gland:7 x 7 x 9 mm suprasellar lesion abutting the pituitary stalk is suggestive of a probable meningioma. Patient denies headache, visual disturbance Discussed with Dr. Riggs, most likely incidental finding Repeat brain MRI pituitary gland in 6 months Check TSH and cortisol for completion Diarrhea, melena -C. difficile: Negative -Fecal occult blood test: Positive - Continue to Hold aspirin, heparin -Hemoglobin remaining stable at 9.6 GI consulted, defer EGD for now as patient does not seem to have an acute GI bleed given stable hemoglobin Transition from Protonix drip to Protonix IV twice daily Resume aspirin and heparin if hemoglobin remains stable Dysphagia CT neck: No obstruction Brain MRI: No signs of acute ischemia Speech therapist on board and recommended to advance diet to easy to chew Continue aspiration precaution Electrolytes Imbalance Electrolytes stable today Continue monitor Electrolytes Leg weakness -PT/OT eval COVID + on 01/05/21 - Covid PCR 01/20 and 01/21: negative - on room air HFpEF: -last echo showed EF of 55-59% (12/2020) -pt is euvolemic HTN: -BP is better -will continue home meds HLD and BPH: -continue home meds DVT PPx: Will start on heparin subq BID in am ( low platelet count ) Code Status: Full code Admission and Anticipated Discharge Date Admission Date: January 20, 2021 Subjective Pt was seen and examined for follow up of confusion,pneumonia and electrolytes abnormality Lying in bed with no acute distress with one to one sitter Staff said that he ate a little more today Spoke to daughter Rita today and provided with update Denies any chest pain, palpitation, dizziness and SOB Review of Systems Review of Systems: All systems reviewed & are unremarkable except as noted in Subjective Physical Exam Physical Exam: General- No acute distress Head- atraumatic Eyes- PERRL, EOMI, ENT- oropharynx clear Neck- supple, no JVD Lungs- clear to auscultation Heart- regular rhythm; no murmur Abdomen- normal bowel sounds, soft, nontender Extremities- no calf tenderness Neuro- alert, oriented x 3; PERRL, EOMI; no facial palsy; no dysarthria Skin- warm & dry Results & Data Results & Data ([facility]) Vital Signs (Past 12 Hours) Vital Signs Temp Pulse Pulse Pulse Resp BP Pulse Ox 01/27/21 23:24 37.0 C 80 17 144/67 H 94 01/27/21 23:03 72 01/27/21 20:42 36.8 C 78 17 119/56 L 97 (1) BPH (benign prostatic hypertrophy) Lower urinary tract symptom detail: urinary obstruction Lower urinary tract symptom presence: symptoms present Qualified Code(s): N40.1 - Benign prostatic hyperplasia with lower urinary tract symptoms; N13.8 - Other obstructive and reflux uropathy
[2021-01-28] MEDS ORDERED: SODIUM CHLORIDE 0.65% NA SOLN 45 ML (OCEAN) ONE (03:30)
[2021-01-28 08:32] LABS: Hematocrit (blood only) 28.2 % (42-52); Hemoglobin 9.5 g/dL (14.0-18.0); Mean Corpuscular Hgb Conc 33.7 g/dL (32-36); Mean Platelet Volume 9.5 fL (7.4-10.4); Platelet Count 155 K/uL (130-400); RDW Coefficient of Variation 14.8 % (11.5-14.5); RDW Standard Deviation 46.8 fL (36.4-46.3); Red Blood Count 3.28 M/uL (4.7-6.1); White Blood Count 2.48 K/uL (4.8-10.8)
[2021-01-28 09:12] LABS: BUN Creatinine Ratio 3.8 (10-20); Calcium 7.2 mg/dl (8.5-10.1); Creatinine Clr Calc Pharmacy 82.8 ml/min; Est GFR (Non-African American) 92.4 ml/min; Magnesium 1.8 mg/dl (1.8-2.4); Potassium 3.5 mmol/L (3.5-5.1)
[2021-01-28] MEDS: METOPROLOL TARTRATE 25 MG TAB PO SCH ×2 (09:19→19:26)
[2021-01-28] MEDS: ACETAMINOPHEN 325 MG TAB PO PRN (09:19)
[2021-01-28] MEDS: HEPARIN SOD 5,000 UNIT/0.5 ML VIAL SQ SCH ×2 (09:19→19:27)
[2021-01-28] MEDS: D5NSS + 20MEQ KCL 20 MEQ/1,000 ML BAG IV SCH (09:19)
[2021-01-28] MEDS: PANTOprazole 40 MG in SYRINGE 0 ML IV SCH ×2 (09:20→19:27)
[2021-01-28] MEDS: POTASSIUM CHLORIDE PWD 20 MEQ PACK PO SCH (09:31)
[2021-01-28] MEDS: SIMVASTATIN 20 MG TAB PO SCH (09:31)
[2021-01-28] MEDS: TAMSULOSIN HCL 0.4 MG CAP PO SCH (09:31)
[2021-01-28] MEDS: FINASTERIDE 5 MG TAB PO SCH (09:31)
[2021-01-28] MEDS ORDERED: POTASSIUM PHOS 3 MMOL/1 ML INFUSION IV STA (10:08)
[2021-01-28] MEDS ORDERED: POTASSIUM PHOSPHATE 15 MMOL in SODIUM CHLORIDE 0.9% 250 ML IV ONE (10:30)
[2021-01-28] MEDS ORDERED: HEPARIN 100 UNIT/ML 5ML FLUSH FLUSH PRN (23:15)
--- NOTE | 2021-01-28 23:18 | Hospitalist Progress Note ---
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 Infiltrative process/pneumonia is possible. 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 Sims, continue monitoring for now, expect to improve in the coming days Platelet AND wbc continue to improve Suprasellar lesion, incidental finding on MRI Brain MRI pituitary gland:7 x 7 x 9 mm suprasellar lesion abutting the pituitary stalk is suggestive of a probable meningioma. Patient denies headache, visual disturbance Discussed with Dr. Riggs, most likely incidental finding Repeat brain MRI pituitary gland in 6 months Please check TSH outpatient Diarrhea, melena -C. difficile: Negative -Fecal occult blood test: Positive - Continue to Hold aspirin, heparin -Hemoglobin remaining stable GI consulted, defer EGD for now as patient does not seem to have an acute GI bleed given stable hemoglobin Transition from Protonix drip to Protonix IV twice daily Resume aspirin and heparin if hemoglobin remains stable Dysphagia CT neck: No obstruction Brain MRI: No signs of acute ischemia Speech therapist on board and recommended to advance diet to easy to chew Continue aspiration precaution Electrolytes Imbalance Electrolytes have been replaced Continue monitor Electrolytes (K, Phosp, Ca, and Mg ) Leg weakness -PT/OT eval COVID + on 01/05/21 - Covid PCR 01/20 and 01/21: negative - on room air HFpEF: -last echo showed EF of 55-59% (12/2020) -pt is euvolemic HTN: -BP is better -will continue home meds HLD and BPH: -continue home meds DVT PPx: resumed heparin subq BID since platetet and hemoglobin improve Code Status: Full code Disposition Not safe to discharge home due to high risk of fall Admission and Anticipated Discharge Date Admission Date: January 20, 2021 Subjective Pt was seen and examined for follow up of confusion,pneumonia and electrolytes abnormality Lying in bed with no acute distress with one to one sitter Staff said that he ate a little more today Spoke to daughter Rita today and the last few days to provide with update Denies any chest pain, palpitation, dizziness and SOB Review of Systems Review of Systems: All systems reviewed & are unremarkable except as noted in Subjective Physical Exam Physical Exam: General- No acute distress Head- atraumatic Eyes- PERRL, EOMI, ENT- oropharynx clear Neck- supple, no JVD Lungs- clear to auscultation Heart- regular rhythm; no murmur Abdomen- normal bowel sounds, soft, nontender Extremities- no calf tenderness Neuro- alert, oriented x 3; PERRL, EOMI; no facial palsy; no dysarthria Skin- warm & dry Results & Data Results & Data ([facility]) Vital Signs (Past 12 Hours) Vital Signs Temp Pulse Pulse Resp BP Pulse Ox 01/28/21 19:00 36.9 C 78 20 157/72 H 95 01/28/21 16:21 36.7 C 77 18 168/81 H 98 01/28/21 15:12 69 01/28/21 12:14 36.7 C 59 L 18 132/65 93 (1) BPH (benign prostatic hypertrophy) Lower urinary tract symptom detail: urinary obstruction Lower urinary tract symptom presence: symptoms present Qualified Code(s): N40.1 - Benign prostatic hyperplasia with lower urinary tract symptoms; N13.8 - Other obstructive and reflux uropathy
[2021-01-29] MEDS: D5NSS + 20MEQ KCL 20 MEQ/1,000 ML BAG IV SCH (04:17)
[2021-01-29] MEDS: FINASTERIDE 5 MG TAB PO SCH (09:26)
[2021-01-29] MEDS: POTASSIUM CHLORIDE PWD 20 MEQ PACK PO SCH (09:26)
[2021-01-29] MEDS: METOPROLOL TARTRATE 25 MG TAB PO SCH (09:26)
[2021-01-29] MEDS: TAMSULOSIN HCL 0.4 MG CAP PO SCH (09:26)
[2021-01-29] MEDS: SIMVASTATIN 20 MG TAB PO SCH (09:26)
[2021-01-29] MEDS: HEPARIN SOD 5,000 UNIT/0.5 ML VIAL SQ SCH (09:27)
[2021-01-29 09:39] LABS: Hematocrit (blood only) 30.7 % (42-52); Hemoglobin 10.2 g/dL (14.0-18.0); Mean Corpuscular Hemoglobin 28.5 pg (25-34); Mean Corpuscular Hgb Conc 33.2 g/dL (32-36); Mean Corpuscular Volume 85.8 fL (80-100); Mean Platelet Volume 8.8 fL (7.4-10.4); Platelet Count 231 K/uL (130-400); RDW Coefficient of Variation 14.5 % (11.5-14.5); RDW Standard Deviation 46.2 fL (36.4-46.3); Red Blood Count 3.58 M/uL (4.7-6.1); White Blood Count 4.69 K/uL (4.8-10.8)
[2021-01-29 10:12] LABS: Calcium 7.3 mg/dl (8.5-10.1); Creatinine Clr Calc Pharmacy 84.2 ml/min; Est GFR (African American) 107.8 ml/min; Potassium 3.4 mmol/L (3.5-5.1)
[2021-01-29] MEDS ORDERED: POTASSIUM CHLORIDE CRTAB 20 MEQ TABCR PO STA (10:48)
[2021-01-29] MEDS: PANTOprazole 40 MG in SYRINGE 0 ML IV SCH (11:07)
[2021-01-29] MEDS ORDERED: Nursing to Pharmacy Communication SCH (12:00)
--- NOTE | 2021-01-29 16:54 | Discharge Summary ---
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 Pt had a port placement on 01/09/21 and had first cycle of treatment on 01/18/21 Pt tested positive for COVID on 01/05/21 At bedside: pt denied any acute CP, SOB, cough, chills, abd pain, pain near the port placement site or N/V. He complained of b/l leg weakness. Denied any slur speech or blurry vision or [place]. In the ER: Tylenol 1g, 1L NS bolus given, 1L bolus of LR and Cefepime 2000mg Admission Exam Per Admitting Provider General:. NAD, well developed, well nourished, average body habitus HEENT:. Normocephalic and atraumatic, Normal Conjunctiva, EOMI, Sclera is non- icteric Lungs:.port placement site: no erythema, swelling or TTP. No signs of respiratory distress, CTA, no wheezing or crackles Heart:. Normal S1, S2, no murmur Abdominal:. ND, Soft, NT MSK:.Normal ROM of the b/l LE, overall normal strength, No deformities of UE and LE, No leg edema Skin:. no rash or open wound Psych:. AAOx3, normal affect Principal Diagnosis (1) Metabolic encephalopathy: (2) Sepsis: (3) BPH (benign prostatic hypertrophy): (4) T-cell lymphoma: (5) Leg weakness: (6) Coronary artery disease: (7) (HFpEF) heart failure with preserved ejection fraction: Discharge Exam General- No acute distress, confused and weak Head- atraumatic Eyes- PERRL, EOMI, ENT- oropharynx clear Neck- supple, no JVD Lungs- clear to auscultation Heart- regular rhythm; no murmur Abdomen- normal bowel sounds, soft, nontender Extremities- no calf tenderness Neuro- alert, PERRL, EOMI; no facial palsy; no dysarthria Skin- warm & dry Discharge Data Allergies Allergy/AdvReac Type Severity Reaction Status Date / Time No Known Allergies Allergy Unverified 01/20/21 15:39 Consultations 01/20/21 17:04 ED Decision to Admit Stat 01/22/21 15:10 Consult Gastroenterology Routine 01/24/21 19:16 Consult Palliative Care Routine Ordered Studies 01/20/21 14:45 CT head/brain wo con Stat 01/21/21 07:51 CT chest diagnostic wo con Routine 01/21/21 08:45 CT soft tissue neck wo con Urgent 01/21/21 16:28 MR brain wo con Routine 01/23/21 10:07 MR brain pituitary wo/w con Routine MR brain pituitary wo/w con HISTORY: 85 years-old Male possible suprasellar mamss acute strokelike symptoms. COMPARISON: Brain MRI 01/21/2021, head CT 01/20/2021 TECHNIQUE: Multiplanar multisequence MR of the brain was obtained both with and without the use of 6 mL Gadavist. FINDINGS: There is no restricted diffusion to suggest acute or subacute infarct. The study is motion degraded. No pathologic blooming artifact. No acute intracranial hemorrhage, midline shift, abnormal extra-axial collection, hydrocephalus or intra-axial mass. Age-related involutional changes. Moderate T2/FLAIR hype rintensities throughout the white matter are suggestive of chronic microvascular ischemic disease. Cerebral venous sinuses and major arterial flow voids appear patent. Trace right mastoid effusion. The left mastoid air cells are clear. Minimal mucosal thickening of the ethmoid sinuses. Prior bilateral lens repair. The skull and soft tissues are unremarkable. There is an ovoid circumscribed T1 and T2 isointense left suprasellar lesion abutting the pituitary stalk which appears to demonstrate mild homogeneous enhancement and measures 7 x 7 x 9 mm nicely seen on image 11 series 18 and image 10 of series 19. IMPRESSION: 1. No acute intracranial abnormality. No acute or subacute infarct. 2. 7 x 7 x 9 mm suprasellar lesion abutting the pituitary stalk is suggestive of a probable meningioma. ACT 112: Negative or not required by law. The above report was generated using voice recognition software. It may contain grammatical, syntax or spelling errors. Electronically signed by: Jose Murrieta M.D. 01/23/2021 1:10 PM Dictated: 01/23/21 1102Transcribed: 01/23/21 1136 MRI OF THE BRAIN WITHOUT CONTRAST CLINICAL HISTORY: dysphagia, altered mental status, r/o CVA COMPARISON STUDY: None. FINDINGS: Sagittal T1, axial diffusion, proton density and T2 weighted axial, coronal FLAIR, and axial T1-weighted images were acquired. No intra -axial mass lesions are visualized. There is questionable isointense signal is seen within left paracentral aspect of the cavernosal sinus (/ and /) which might represent suprasellar mass. Axial diffusion-weighted images reveal no evidence of acute or subacute infarction. There is no evidence of ventricular dilatation. Proton density T2-weighted and FLAIR images reveal scattered foci of increased T2 signal within the white matter, likely on a small vessel basis. Multiple focal areas of high T2 signal is seen within mid brain, tnoo and right cerebellar lobe which could represent lacunar infarcts. There are no abnormal flow voids. CSF signal is seen within occipital bone which was also seen on CT of the head performed yesterday and could represent prominent vascular structure/venous darling. IMPRESSION: No acute intracranial hemorrhage, no midline shift or space occupying lesions. Questionable isointense signal change within left paracentral aspect of the cavernous sinus which might represent small suprasellar mass. Further evaluation with dedicated pituitary MRI on nonemergency basis is suggested. Chronic small vessel ischemia. Lacunar infarcts within right cerebellar lobe. No evidence of restricted diffusion to suggest acute ischemia/infarct. ACT 112: Positive. There are findings on this exam that require communication between the performing entity and the patient following Patient Test Result Information Act ([place] Act 112) guidelines. The above report was generated using voice recognition software. It may contain grammatical, syntax or spelling errors. Electronically signed by: Parvin Singh DO 01/21/2021 6:04 PM Dictated: 01/21/211751Transcribed: 01/21/211751 CT soft tissue neck wo con CT DOSE: 323.80 mGy.cm CLINICAL HISTORY: dysphagia, hx of thyroid ca TECHNIQUE: A dose lowering technique was utilized adhering to the principles of ALARA. COMPARISON STUDY: None. FINDINGS: Partially visualized portion of thyroid gland shows 0.8 cm hypoattenuating nodule within its right lobe. No large neck mass lesions are seen however evaluation is suboptimal due to lack of IV contrast. Airways are patent. 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 Left submandibular gland is not well seen. Right submandibular gland is normal. Lytic lesion within occipital bone might represent venous structure/venous darilng. Multilevel degenerative changes of the cervical spine. Teeth are absent. Mild mucosal thickening within dependent portion of the left maxillary sinus might represent inflammatory changes/sinusitis in appropriate clinical settings. IMPRESSION: Small hypoattenuating nodule within the right thyroid lobe. Right and left lobes of thyroid gland are visualized. No definite large cervical mass lesions are seen. Left submandibular gland is not visualized. Possible inflammatory changes within left maxillary sinus . Degenerative changes of the spine. Suboptimal exam due to lack of IV contrast. The rest of findings as above. ACT 112: Negative or not required by law. The above report was generated using voice recognition software. It may contain grammatical, syntax or spelling errors. Electronically signed by: Parvin Singh DO 01/21/2021 10:37 AM Dictated: 01/21/21 1029Transcribed: 01/21/[address] chest diagnostic wo con CLINICAL HISTORY: sepsis, possible pneumonia COMPARISON STUDY: No previous studies for comparison. CT DOSE: TECHNIQUE: CT of the thorax was performed from the thoracic inlet to the lung bases. Images are reviewed in the axial, sagittal, and coronal planes. IV contrast was not administered for this examination. A dose lowering technique was utilized adhering to the principles of ALARA. FINDINGS: Multiple nonenlarged lymph nodes are seen within bilateral axilla, supra clavicle region and mediastinum. Slightly prominent left internal mammary lymph node is seen measuring 1.1 cm in short axis. Overall evaluation is limited due to beam hardening artifact and mediastinal edema. Thyroid: Visualized portion of thyroid gland shows no evidence of focal lesions. Superior aspect of esophagus is patulous. Midportion of esophagus is not well seen. Thoracic aorta: The thoracic aorta is normal in course and caliber and show scattered calcifications within its wall. Main pulmonary artery is dilated which could be seen in pulmonary hypertension. Heart: Heart is slightly enlarged. Mild pericardial effusion is seen. Severe coronary calcifications are seen. Lungs and pleural spaces: Tracheobronchial tree is patent. This study is acquired during partial expiratory phase. Mild bilateral pleural effusion is seen and associated with compressive atelectasis at dependent portions of bilateral lower lobes. Inflammatory process/pneumonia is also possible. Multiple calcifications are seen within collapsed portion of bilateral lower lobes. -There is 11 mm nodule within lingula (7/221). Overall evaluation of lung parenchyma is significantly limited due to motion artifact. Central venous catheter is seen on the right with tip terminating within superior vena cava. Upper abdomen: Limited evaluation of upper abdomen shows enlarged spleen measuring 14.7 cm in length. Skeletal structures: Mild diffuse osteopenia and degenerative changes of the spine. No definite aggressive focal lesions are seen. IMPRESSION: 1. Minimal bilateral pleural effusion associated with atelectasis at dependent portions of bilateral lower lobes. Infiltrative process/pneumonia is possible. 2. Enlarged spleen and multiple lymph nodes, left internal mammary lymph node is most prominent. Limited exam due to very little amount of fat, lack of IV contrast and beam hardening artifact. 3. Possible 11 mm pulmonary nodule within lingula. Etiology could be infectious/inflammatory or neoplastic. Short-term follow-up in 4-[address] of the chest is suggested to document resolution. 4. Slightly enlarged cardiac silhouette. Pericardial effusion. 5. Atherosclerosis. 6. Dilated pulmonary artery which could be seen in pulmonary hypertension. 7. The rest of findings as above. ACT 112: Negative or not required by law. The above report was generated using voice recognition software. It may contain grammatical, syntax or spelling errors. Electronically signed by: Parvin Singh DO 01/21/2021 10:52 AM Dictated: 01/21/21 1039Transcribed: 01/21/[address] OF THE HEAD WITHOUT CONTRAST CLINICAL HISTORY: weak, fever, confusion COMPARISON STUDY: No previous studies for comparison. CT DOSE: 591.77 mGycm TECHNIQUE: Helical axial images of the head were obtained without IV contrast. Automated exposure control was utilized for the study. A dose lowering techn ique was utilized adhering to the principles of ALARA. FINDINGS: No acute intracranial hemorrhage, midline shift or mass effect is present. White matter hypodensity suggests small vessel disease. The ventricular system is unremarkable. The basal cisterns are patent. No extra-axial collections are present. There are no findings to suggest acute dural sinus thrombosis or acute territorial infarct. No significant calvarial abnormalities are present. Visualized portions of the sinuses and mastoid air cells are clear. 2 cm lucent lesion within the occipital bone is likely benign. IMPRESSION: No acute intracranial findings. ACT 112: Negative or not required by law. Electronically signed by: Torrey Hood M.D. 01/20/2021 4:46 PM Dictated: 01/20/21 1644Transcribed: 01/20/21 1644 XR chest 1V portable CLINICAL HISTORY: Fever, weak COMPARISON STUDY: Chest radiograph January 09, 2021. FINDINGS: Patient is rotated. Right internal jugular Cyrmlf-o-Hwav is in place. Cardiomediastinal silhouette is stable. There is no pneumothorax or pleural effusion. There is no evidence for pulmonary edema. Calcified left lower lobe granuloma is present. Minimal left basilar opacity likely reflects atelectasis. IMPRESSION: Minimal left basilar opacity. This favors atelectasis although an infectious process could appear similar. ACT 112: Negative or not required by law. Electronically signed by: Torrey Hood M.D. 01/20/2021 3:03 PM Dictated: 01/20/21 1458Transcribed: 01/20/21 1458 Hospital Course (1) Metabolic encephalopathy: (2) Sepsis: (3) BPH (benign prostatic hypertrophy): (4) T-cell lymphoma: (5) Leg weakness: (6) Coronary artery disease: (7) (HFpEF) heart failure with preserved ejection fraction: Metabolic encephalopathy mostly due to acute illness possible Pneumonia T cell lymphoma on chemo: -Received brentuximab, Cytoxan, doxorubicin, January 18, 2021; after 3 days developed weakness, altered mental status - wbc 21 K on admission Tmax 39.2 Procal elevated Lactic acid normal -CT chest:Minimal bilateral pleural effusion associated with atelectasis at dependent portions of bilateral lower lobes. Infiltrative process/pneumonia is possible. 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 Sims, continue monitoring for now, expect to improve in the coming days Platelet 231 and WBC 4.69 Continue to improve Suprasellar lesion, incidental finding on MRI Brain MRI pituitary gland:7 x 7 x 9 mm suprasellar lesion abutting the pituitary stalk is suggestive of a probable meningioma. Patient denies headache, visual disturbance Discussed with Dr. Riggs, most likely incidental finding Repeat brain MRI pituitary gland in 6 months Please check TSH outpatient Diarrhea, melena -C. difficile: Negative -Fecal occult blood test: Positive -Continue to Hold aspirin and heparin -Hemoglobin remaining stable GI consulted, defer EGD for now as patient does not seem to have an acute GI bleed given stable hemoglobin Transition from Protonix drip to Protonix IV twice daily Resume aspirin and heparin if hemoglobin remains stable Dysphagia CT neck: No obstruction Brain MRI: No signs of acute ischemia Speech therapist on board and recommended to advance diet to easy to chew Continue aspiration precaution Electrolytes Imbalance Electrolytes have been replaced Continue monitor Electrolytes (K, Phosp, Ca, and Mg ) case discussed with dr. Sims that recommended to discharge on electrolytes supplement ( Potassium, phosphate, calcium and Vitamin D) Will need to check electrolytes in 1 weeks Leg weakness Ambulatory dysfunction PT/OT on board that recommended SNF But family wants pt to come home family understands that pt is not safe to come home due to high risk of fall They are not too happy because pt has been in bed mostly and was not able to walk around Case management tried to arrange for placement by calling daughter Rita, but they want patient to come home family said that they are coming to take the patient out of the hospital COVID + on 01/05/21 - Covid PCR 01/20 and 01/21: negative - on room air, saturated well HFpEF: -last echo showed EF of 55-59% (12/2020) -pt is euvolemic HTN: -BP is better -will continue home meds HLD and BPH: -continue home meds DVT PPx: resumed heparin subq BID since platetet and hemoglobin improve Code Status: Full code Disposition Not safe to discharge home due to high risk of fall But family insisted to take him home today in the next hour Called daughter everyday ( , Fri, Fri, Fri, Friday) to provide with updates Dr. Sims ok for family to take the patient home with home health. He will follow up him in the clinic Addedum Spoke to daughter over the phone (with Romeo in the background as well). daughter was not happy with the care pt is getting because pt continues to feel weak and confused. PT/OT recommended SNF, but family was not on board with that when case management called to discuss option for referral. said that when he dropped the patient in the hospital that he was able to walk and he was not sick. I called daughter everyday (starting on ) to give update and to explain to him that the longer pt stays in the hospital usually pt becomes confuse and delirious. I advised daughter that pt is very weak that he will need to go to rehab because he is not safe to go home. I told her that pt requires 2 persons assistance to get him from the bathroom to the bed. Daughter insisted to take patient home today. I tried to explained to daughter that therapy recommended rehab. took the phone and said that we are coming to take the patient home now and to give them a script for physical therapy on discharge. said that he would be here in 1 hour to take mr. Gray. One Hour later I received a call from the nurse after pt was discharged that daughter would not be able to provide care to the patient because she did not know that pt was so weak before insisting on discharge. Nurse said that daughter would like to get a referral for inpatient rehab. I called daughter over the phone and explained to her that case management usually helps with social disposition and rehab that i would make case management call her tomorrow since I don't know the process. I told her in the meantime if she is unable to care for Mr. Gray to bring him back to the hospital that we can care for him and work on the transition to inpatient rehab. Daughter said that her will take Mr. Gray to another hospital. I asked her if she has any other questions, she said no. Will let case management know in am to call the daughter to help with placement. MD Sánchez Total Time Total Time Spent Total Time Spent (In Minutes): 45 minutes Discharge Plan Discharge Items Patient Disposition: Home - Home Health Services Reason For Visit: CONFUSION AND SEPSIS Discharge Diagnosis: (1) Metabolic encephalopathy: (2) Sepsis: (3) BPH (benign prostatic hypertrophy): (4) T-cell lymphoma: (5) Leg weakness: (6) Coronary artery disease: (7) (HFpEF) heart failure with preserved ejection fraction: Activity: Resume your previous activity Non-emergency contact: Primary Care Provider and [employer] Call non-emergency contact if: you have any medication questions Follow-up/Referrals: Danny Solitario MD [Primary Care Provider] - Diet: Heart Healthy Addtl Attending Provider Instructions: Follow up with your primary care provider Dr. Solitario within 1 week Follow up with Oncology Dr. Sims Continue physical and occupational therapy with home health services Patient is very high risk for fall. Continue fall precaution Check BMP and phosphate level within 1 week to monitor the electrolytes Check CBC within 1 week to monitor your white blood cell count and platelet You will need a repeat MRI of the pituitary in 3- 6 months ( Your provider or Oncology can order it) Monitor for any black stool while on aspirin ( seek medical attention if you develop any abnormal bleeding or dark stool ) Pending Studies at Discharge: No Stand-Alone Forms: My [employer], Smoking Cessation Medications and DC Order Prescriptions: New potassium chloride 20 mEq tablet extended release 20 meq PO BID Qty: 30 RF: 0 cholecalciferol (vitamin D3) 25 mcg (1,000 unit) capsule 25 mcg PO DAILY Qty: 30 RF: 0 calcium gluconate 50 mg calcium tablet 50 mg PO DAILY Qty: 30 RF: 0 Phosphorous 250 mg tablet 1 tab PO DAILY Qty: 30 RF: 0 Continued omeprazole 40 mg capsule,delayed release(DR/EC) 40 mg PO QAM Qty: 90 RF: 3 tamsulosin 0.4 mg capsule 0.4 mg PO QAM RF: 0 aspirin 81 mg Tablet,Delayed Release (Dr/Ec) 81 mg PO QAM RF: 0 finasteride 5 mg Tablet 5 mg PO QAM RF: 0 ondansetron HCl 8 mg tablet 8 mg PO Q8 PRN (Reason: Nausea) RF: 0 simvastatin 20 mg tablet 20 mg PO DAILY RF: 0 metoprolol tartrate 25 mg tablet 12.5 mg PO BID RF: 0 Discharge Orders: Discharge Order (Routine); Ordered 01/29/21 Ordered By: Pascual Pozo Admission Data Admit Date/Time: 01/20/21 17:13 Attending Provider: Pascual Pozo Admit Provider: Zulay Capps Primary Care Provider: Danny Solitario Other Providers: Zulay Capps ; Liam Ramírez,Luis Carlos A. ; Gloria Castrejon Other Interventions: Discharge Summary Assessment (RN) Last Done: 01/29/21 16:41
--- NOTE | 2021-01-29 16:58 | Communication Note ---
Date of Service: January 29, 2021 Spoke to daughter over the phone (with Romeo in the background as well). daughter was not happy with the care pt is getting because pt continues to feel weak and confused. PT/OT recommended SNF, but family was not on board with that when case management called to discuss option for referral. said that when he dropped the patient in the hospital that he was able to walk and he was not sick. I called daughter everyday (starting on ) to give update and to explain to him that the longer pt stays in the hospital usually pt becomes confuse and delirious. I advised daughter that pt is very weak that he will need to go to rehab because he is not safe to go home. I told her that pt requires 2 persons assistance to get him from the bathroom to the bed. Daughter insisted to take patient home today. I tried to explained to daughter that therapy recommended rehab. took the phone and said that we are coming to take the patient home now and to give them a script for physical therapy on discharge. said that he would be here in 1 hour to take mr. Gray. One Hour later I received a call from the nurse after pt was discharged that daughter would not be able to provide care to the patient because she did not know that pt was so weak before insisting on discharge. Nurse said that daughter would like to get a referral for inpatient rehab. I called daughter over the phone and explained to her that case management usually helps with social disposition and rehab that i would make case management call her tomorrow since I don't know the process. I told her in the meantime if she is unable to care for Mr. Gray to bring him back to the hospital that we can care for him and work on the transition to inpatient rehab. Daughter said that her will take Mr. Gray to another hospital. I asked her if she has any other questions, she said no. Will let case management know in am to call the daughter to help with placement. MD Sánchez
== END 2021-01-29 16:58 | disposition home health service (06) | DRG 871 ==
LOC: ED 14:36 → 2S 17:13 → SUATTDRO 17:13 → 2S 19:54